=== PATIENT | male | born 1945 | race Caucasian/White ===

== ENCOUNTER 2020-03-10 13:29 | Emergency (ER) | payer MEDICARE, BC, SELFPAY ==
[2020-03-10 13:38] VITALS: BP 140/95; PULSE 89; RESP 18; TEMP 36.6; O2SAT 98; BMI 31.8
[2020-03-10 13:51] VITALS: PULSE 75; RESP 17; O2SAT 96
[2020-03-10] MEDS: tranexamic acid 1,000 mg/10mL SDV 1000 MG IRRIGATION (14:10)
[2020-03-10] MEDS: gelatin 12-7 mm Sponge 1 EACH TOPICAL (14:10)
--- NOTE | 2020-03-10 14:13 | ED_ITS ---
HPI - General Adult General: Chief complaint: Dental/Oral Stated complaint: dental bleeding Time Seen by Provider: 03/10/20 13:49 History of Present Illness: HPI narrative: Patient had a tooth extraction done right upper back molar 24 hours ago is on Pradaxa and the tooth cavity continues to bleed he did pull his packing out MD complaint: Bleeding Onset (ago): day(s) Location: mouth Relieving factors: none Associated symptoms: Reports no associated symptoms Review of Systems Const: Denies: fever or chills ENMT: Reports: other (Gum is bleeding from right rear molar upper tooth extraction done 24 hours ago patient is on Pradaxa) Psych: Denies: anxiety or depression PFSH ED PFSH: Medical History (Updated 12/08/19 @ 10:12 by Roxanne Serrato APN) Chronic back pain Social History (Updated 12/08/19 @ 07:17 by Vanessa Wright LPN) Smoking and tobacco status: never smoked Marital status: Physical Exam Const: COMMON NORMALS: oriented x3 HENMT: TEETH & GINGIVA: Yes other (Right right upper gum rear area where molar was extracted is bleeding does have a couple small clots) Neuro: COMMON NORMALS: oriented x3 Psych: COMMON NORMALS: mental status grossly normal Course Vital Signs: Vital signs: Vital Signs Temperature 97.9 F 03/10/20 13:38 Pulse Rate 75 03/10/20 13:51 Respiratory Rate 17 03/10/20 13:51 Blood Pressure 140/95 03/10/20 13:38 Pulse Oximetry 96 03/10/20 13:51 MDM - General Adult MDM Narrative: Medical decision making narrative: I packed the oral cavity with transexaminec acid and Gelfoam. Patient tolerated procedure well Discharge Plan Discharge Prescriptions: No Action carvedilol 12.5 mg tablet 12.5 mg PO BID RF: 0 allopurinol 300 mg tablet 300 mg PO QDAY RF: 0 hydrochlorothiazide 25 mg tablet 25 mg PO QAM RF: 0 metformin 500 mg tablet 500 mg PO BID RF: 0 rosuvastatin [Crestor] 40 mg tablet 40 mg PO QDAY RF: 0 Pradaxa 150 mg capsule 150 mg PO BID RF: 0 Coding Level of Care Code ED Feed And Farm Management Adviser for Deo Hanson
[2020-03-10 14:47] VITALS: BP 117/80; PULSE 61; RESP 15; O2SAT 97
== END 2020-03-10 14:38 | disposition home or self-care (01) ==
PROVIDERS: Emergency Provider Nurse Practitioner Family; PCP Nurse Practitioner Family
DX: Z98.818 Other dental procedure status (principal); R58 Hemorrhage, not elsewhere classified
CPT/HCPCS: 12345; 99282

== ENCOUNTER 2020-06-25 17:28 | Emergency (ER) | payer MEDICARE, BC, SELFPAY ==
[2020-06-25 17:43] VITALS: BP 131/81; PULSE 89; RESP 16; TEMP 36.4; O2SAT 96; BMI 31.8
--- NOTE | 2020-06-25 18:11 | W.ED.DENTAL ---
HPI - Dental/Oral General: Chief complaint: Dental/Oral Stated complaint: DENTAL BLEEDING Time Seen by Provider: 06/25/20 18:10 History of Present Illness: HPI Narrative: Patient is a 74-year-old male who comes to the ED with dental bleeding. Patient pulled tooth this morning and he is not been able to get bleeding to stop. He is currently on Pradaxa. Patient denies any other complaints. Associated symptoms: Denies fever(s) or odynophagia Review of Systems Const: Denies: fever(s), chills or fatigue Eyes: Denies: change in vision or eye discomfort ENMT: Reports: bleeding gums (Continued bleeding after pulling tooth.); Denies: throat pain, odynophagia, nasal discharge or nasal congestion Card: Denies: chest pain, palpitations, edema, swelling of feet/ankles, dyspnea on exertion or orthopnea Resp: Denies: dyspnea, productive cough or non-productive cough GI: Denies: abdominal pain, nausea, vomiting, diarrhea, constipation or hematochezia : Denies: flank pain, difficulty urinating, dysuria or hematuria Musc: Denies: neck pain, back pain or extremity swelling Skin/Breast: Denies: rash or new lesions Neuro: Denies: headache(s), numbness in extremities or weakness in extremities PFSH ED PFSH: Medical History Chronic back pain Social History Smoking and tobacco status: never smoked Alcohol intake: never Substance/Drug Use: never Marital status: Physical Exam Narrative: EXAM NARRATIVE: Patient is a 74-year-old male in no acute distress or pain in the room. He is sitting comfortably in the chair upon examination. Const: COMMON NORMALS: no acute distress, patient oriented x3 and alert GENERAL APPEARANCE: cooperative and comfortable HENMT: COMMON NORMALS: normocephalic HEAD & SCALP: normocephalic MOUTH: Normal oral and palatal mucosa present TEETH & GINGIVA: Yes other (Area where tooth was pulled was upper maxillary right side of jaw approximately tooth #2 or 3. Minimal active bleeding seen.) THROAT: posterior oropharynx normal and uvula midline Neck/C-Spine: COMMON NORMALS: supple GENERAL: Yes normal visual inspection Resp: COMMON NORMALS: normal respiratory effort, No retractions, No use of accessory muscles and clear to auscultation bilaterally AUSCULTATION: clear to auscultation bilaterally Cardio: COMMON NORMALS: regular rate, regular rhythm, S1 normal heart sound present, S2 normal heart sound present, No gallops present (Cardio), No clicks present (Cardio), No murmurs present (Cardio) and Peripheral pulses 2+ throughout RATE: regular rate RHYTHM: regular rhythm HEART SOUNDS: S1 normal heart sound present and S2 normal heart sound present PERIPHERAL PULSES: Peripheral pulses 2+ throughout GI: COMMON NORMALS: Normal to inspection, nondistended, normoactive bowel sounds present, Soft to palpation, non-tender and no masses PALPATION: Yes Soft to palpation : COMMON NORMALS: Yes no CVA tenderness BLADDER/KIDNEY EXAM: Yes no CVA tenderness Back/Pelvis: COMMON NORMALS: no CVA tenderness Extremity: COMMON NORMALS: normal to inspection Neuro: COMMON NORMALS: patient oriented x3 and moves all extremities SENSORIUM/ORIENTATION: Yes alert Skin: COMMON NORMALS: no rashes or lesions noted GENERAL SKIN EXAM: no rashes or lesions noted and dry skin Course Vital Signs: Vital signs: Vital Signs Temperature 97.5 F L 06/25/20 17:43 Pulse Rate 89 06/25/20 17:43 Respiratory Rate 16 06/25/20 17:43 Blood Pressure 131/81 06/25/20 17:43 Pulse Oximetry 96 06/25/20 17:43 MDM - Dental/Oral MDM Narrative: Medical decision making narrative: Patient is a 74-year-old male comes to the ED with oral bleeding after pulling a tooth this morning. Patient is on Pradaxa. Upon exam there is some minimal active bleeding. Patient was given transexaminec acid and Gelfoam to control bleeding. Patient discharged and told to follow-up with PCP in 3 to 5 days for reevaluation. Patient understood and agreed with plan. Discharge Plan Discharge Patient Disposition: Home Clinical Impression: Oral bleeding Condition: Stable Prescriptions: No Action carvedilol 12.5 mg tablet 12.5 mg PO BID RF: 0 allopurinol 300 mg tablet 300 mg PO QDAY RF: 0 hydrochlorothiazide 25 mg tablet 25 mg PO QAM RF: 0 metformin 500 mg tablet 500 mg PO BID RF: 0 rosuvastatin [Crestor] 40 mg tablet 40 mg PO QDAY RF: 0 Pradaxa 150 mg capsule 150 mg PO BID RF: 0 amoxicillin 500 mg capsule See Rx Instructions .ROUTE .COMPLEX RF: 0 benazepril 20 mg tablet 20 mg PO DAILY RF: 0 Discharge Orders: Discharge Order (Routine); Ordered 06/25/20 Ordered By: Mauro Briceno Referrals: Roxanne Serrato APN [Primary Care Provider] - Discharge Diet: Regular Discharge Activity: Resume usual activity Activity Restrictions/Additional Instructions: Follow-up with medical provider as directed in 3-5 days. Continue taking home medications as prescribed. Return to the ER or your medical provider if condition worsens. Please read and understand discharge instructions. If any questions, please ask. Coding Level of Care Code ED Elevator Operator Service for Deo Fwvalentine Exam Comprehensive
[2020-06-25] MEDS: tranexamic acid 1,000 mg/10mL SDV 1000 MG IRRIGATION (18:41)
[2020-06-25] MEDS: gelatin 12-7 mm Sponge 1 EACH TOPICAL (18:42)
[2020-06-25 18:47] VITALS: BP 117/79; PULSE 64; RESP 18; O2SAT 96
== END 2020-06-25 18:53 | disposition home or self-care (01) ==
PROVIDERS: Emergency Provider Physician Assistant; PCP Nurse Practitioner Family
DX: K13.79 Other lesions of oral mucosa (principal); Z79.84 Long term (current) use of oral hypoglycemic drugs
CPT/HCPCS: 12345; 99281; 99282

== ENCOUNTER → 2021-02-13 08:37 | Outpatient (BNVA) | payer MEDICARE, BC, SELFPAY | PROVIDERS: PCP Nurse Practitioner Family; Referring Provider Nurse Practitioner Family; Visit Provider Orthopaedic Surgery | DX: M17.12 Unilateral primary osteoarthritis, left knee (principal); Z96.651 Presence of right artificial knee joint | CPT/HCPCS: 73560; 73565 ==

== ENCOUNTER → 2021-02-26 08:13 | Day surgery (SDC) | payer MEDICARE, BC, SELFPAY | PROVIDERS: PCP Nurse Practitioner Family; Visit Provider Orthopaedic Surgery | DX: Z01.818 Encounter for other preprocedural examination (principal); M17.12 Unilateral primary osteoarthritis, left knee | CPT/HCPCS: 93005 ==

== ENCOUNTER 2021-03-11 14:29 | Observation (INO) | payer MEDICARE, BC, SELFPAY ==
[2021-02-26 10:18] VITALS: BMI 31.5
--- NOTE | 2021-02-26 10:27 | ECG_ITS ---
[facility] ED Test Date: 2021-02-26 Pat Name: Rommel Bhatia Department: Room: Gender: Male Shingle Grader: : 1945 Requested By: Eitan Mora Order Number: [id number] Radha MD: Luci Courtney M.D. Measurements Intervals [place] Rate: 60 P: RI: QRS: -70 QRSD: 153 T: 12 QT: 450 QTc: 450 Interpretive Statements ELECTRONIC VENTRICULAR PACEMAKER ABNORMAL RHYTHM ECG Compared to ECG 01/27/2017 18:38:35 No significant changes Electronically Signed On 02-28-2021 21:18:37 CDT by Luci Courtney M.D. [id number]
--- NOTE | 2021-02-26 11:07 | P.ANESASSM_ITS ---
Pre-Anesthetic Assessment Pre-Anesthetic Assessment: Height/Weight: Height 1.78 m Weight 99.79 kg Preop Diagnosis: knee pain Proposed Procedure: Operation Date: 03/11/21 12:40 Proposed Procedures p Total Knee Arthroplasty 32744 M17.12(Left) - Eitan Mora MD Familial anesthetic complications: None Social: Social History: No alcohol and No tobacco Exam: Pre-Anes Outpt Exam: alert, oriented x 3, clear to auscultation bilaterally and regular rate & rhythm Airway: Cervical ROM: WNL MP: 3 Dentition: Other (implant) Pulmonary: Pulmonary: None reported CV/HEM: CV/HEM: Afib (pacemaker) and HTN Comments: 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 patient and family are stating that Dr. Mora was going to contract their art specialist to make sure he was ok to proceed and there were no further recommendations. Metabolic: Metabolic: DM, Hyperlipidemia and Morbid obesity Musc/skel: Musc/skel: OA/DJD Comments: b/l shoulder pain Anesthetic Plan: ASA status: 3 Anesthesia: Regional (specify below) Other: spinal + adductor (make sure off apixaban) Risk of > 500 ml blood loss (7ml/kg in children): No PFSH Anesthesia PFSH: Medical History Chronic back pain Social History (Updated 02/26/21 @ 10:12 by Darling Mcdonald) Smoking and tobacco status: former smoker Alcohol intake: never Marital status: Data Anesthesia CBC & Chem 7: 02/26/21 10:55 Cardiac Studies: No Data to Display
[2021-02-26 11:08] LABS: Basophils % 0.4 %; Eosinophils # 0.2 10^3/uL (0.0-0.8); Eosinophils % 2.7 %; Hematocrit 43.4 % (42.0-52.0); Hemoglobin 13.7 g/dL (11.7-16.6); Lymphocytes # 1.1 10^3/uL (0.8-4.8); Lymphocytes % 16.9 %; Mean Corpuscular HGB Conc 31.6 g/dL (30.0-36.0); Mean Corpuscular Hemoglobin 28.9 pg (28.0-34.0); Mean Corpuscular Volume 91.6 fL (80-94); Mean Platelet Volume 10.6 fL (7.4-10.4); Monocytes # 0.6 10^3/uL (0.2-0.9); Neutrophils # 4.77 10^3/uL (1.8-7.7); Neutrophils % 70.7 %; Nucleated Red Blood Cells % 0 %; Platelet Count 152 10^3/cmm (130-400); Red Blood Count 4.74 10^6/uL (4.1-5.3); Red Cell Distribution Width 14.6 % (12.1-15.1); White Blood Count 6.8 10^3/uL (4.0-10.0)
[2021-03-11] VITALS (16 sets, daily range): BP systolic 113–154; BP diastolic 54–99; PULSE 60–81; RESP 14–20; TEMP 36.3–36.7; O2SAT 93–97
[2021-03-11] MEDS: sodium chloride 0.9% 1,000 ML 30 ML IV (10:41)
[2021-03-11 10:45] LABS: Glucose Point of Care 120 mg/dL (70-110)
[2021-03-11] MEDS: acetaminophen 500 mg Tablet 1000 MG PO ×2 (10:47→18:46)
[2021-03-11] MEDS: CELEcoxib 200 mg Capsule 400 MG PO (10:47)
[2021-03-11] MEDS: gabapentin 300 mg Capsule PO ×2 (10:47→18:46)
[2021-03-11] MEDS: oxyCODONE 20 mg ER (12 HR) Tablet PO (10:49)
--- NOTE | 2021-03-11 11:47 | W.PM.OPSFHP ---
Same Day Surgery H&P Indication for Procedure/HPI DATE OF PROCEDURE: March 11, 2021 CHIEF COMPLAINT/INDICATIONFOR SURGICAL PROCEDURE: Osteoarthritis left knee here for elective left total knee arthroplasty. PREOP DIAGNOSIS: Osteoarthritis Left knee PLANNED PROCEDRUE: Operation Date: 03/11/21 12:05 Proposed Procedures p Total Knee Arthroplasty 13391 M17.12(Left) - Eitan Mora MD Medications/Allergies* Home Medications Medication Instructions Recorded Confirmed Type allopurinol 300 mg tablet 300 mg PO QDAY 12/08/19 03/11/21 History carvedilol 12.5 mg tablet 12.5 mg PO BID 12/08/19 03/11/21 History hydrochlorothiazide 25 mg tablet 25 mg PO QAM 12/08/19 03/11/21 History metformin 500 mg tablet 500 mg PO BID 12/08/19 03/11/21 History benazepril 20 mg PO DAILY 03/10/20 03/11/21 History apixaban 5 mg tablet 5 mg PO BID 02/13/21 03/11/21 History rosuvastatin 20 mg PO DAILY 02/26/21 03/11/21 History tamsulosin 0.4 mg PO BEDTIME 02/26/21 03/11/21 History tamsulosin [Flomax] 0.4 mg PO DAILY 03/11/21 03/11/21 History Allergies/Adverse Reactions Allergy/AdvReac Type Severity Reaction Status Date / Time niacin Allergy Unknown Verified 03/11/21 10:40 tetanus toxoid, adsorbed Allergy Unknown Verified 03/11/21 10:40 codeine AdvReac Unknown Verified 03/11/21 10:50 morphine AdvReac Unknown Verified 03/11/21 10:50 Current Medications: Generic Name Dose Route Start Last Admin Trade Name Freq PRN Reason Stop Dose Admin Sodium Chloride 1,000 mls @ 30 mls/hr 03/11/21 10:15 03/11/21 10:41 Sodium Chloride 0.9% IV 03/12/21 10:14 30 mls/hr .Q24H MEG Administration Pertinent History/Comorbid Conditions* Medical History (Updated 02/13/21 @ 09:12 by Eitan Mora MD) Chronic back pain Social History Smoking and tobacco status: never smoked Alcohol intake: never Marital status: Pertinent Exam Findings alert, oriented x 3, clear to auscultation bilaterally, regular rate & rhythm and operative site marked Recommendations Surgery/Procedure today Coding Level of Care Code Acute Polysomnographic Tech for Deo Hanson
--- NOTE | 2021-03-11 12:27 | P.ANESUD_ITS ---
Pre-Anesthetic Update Pre-Anesthetic Assessment: Date of Surgery/Procedure: 03/11/21 Preop Roxann gnosis: Osteoarthritis Left knee Proposed Procedure: Operation Date: 03/11/21 12:05 Proposed Procedures p Total Knee Arthroplasty 21496 M17.12(Left) - Eitan Mora MD Any changes to Pre-Anesthetic Assessment?: No Last Intake: Intake Last Liquid Date 03/10/21 Last Liquid Time 21:00 Last Solid Date 03/10/21 Last Solid Time 21:00 Labs Last 48hrs: Laboratory Results - last 48 hr 03/11/21 10:43 POC Glucose 120 H Vitals: Temperature 97.6 F 03/11/21 10:55 Temperature Source Temporal Artery S can 03/11/21 10:55 Pulse Rate 74 03/11/21 10:55 Respiratory Rate 18 03/11/21 10:55 Blood Pressure 154/95 03/11/21 10:55 Blood Pressure Demetrice n 114 03/11/21 10:55 Pulse Oximetry 97 03/11/21 10:55 Oxygen Delivery Me thod 03/11/21 10:57 Exam: Pre-Anes Outpt Exam: alert, oriented x 3, clear to auscultation bilaterally and regular rate & rhythm Other Pertinent Information: Other Pertinent Information: SAB and adductor. Cardiac Studies: No Data to Display
--- NOTE | 2021-03-11 12:50 | ANES.PROC ---
Anesthesia Procedures Procedure/Date: 03/11/21 Nerve Block ^: Nerve Block 1: Main Anesthesia: general anesthesia Time Out Performed: Yes Consent: requested by attending/covering physician, from patient, risks and benefits reviewed and patient agrees to proceed Nerve block location: adductor canal (left) Anesthesia monitors applied: pulse oximetry, EKG, BP cuff and oxygen Nerve block position: supine Anesthetic Used: ropivicaine 0.5% Amount of anesthesia used (mL): 20 Ultrasound used to: recognize landmarks Nerve Stimulator Used?: No Interscalene/Femoral BLK: 4 stimuplex 21 g needle used for position and inplane approach Injection: neg aspiration of heme Patient Tolerated Procedure: well Complications: none
[2021-03-11] MEDS: ketorolac 30 mg/mL INJ XX (13:10)
[2021-03-11] MEDS: EPINEPHrine 1 mg/mL INJ XX (13:10)
[2021-03-11] MEDS: tranexamic acid 1,000 mg/10mL SDV 1000 MG IRRIGATION (13:11)
--- NOTE | 2021-03-11 14:35 | P.OP_ITS ---
Operative Report Date of procedure: March 11, 2021 Pre-op Diagnosis: Osteoarthritis Left knee Post-op diagnosis: same Post-op Findings: Same Procedure Done: Left total knee arthroplasty Implants: er total knee arthroplasty components were used includin) Size 5 triathalon c cemented cruciate substituting femoral component 2) Size 6 universal tibial baseplate 3) 32 mm /10 mm thickness cement asymetric patella 4) Size 6/9 mm thickness posterior stabilized tibial bearing insert Pathology: none sent Surgeon: Eitan Mora Anesthesia: Nerve Block (Spinal, adductor canal) Estimated blood loss (mL): 250 Complications: None Findings: Tricompartmental degenerative disease with bone loss and in the lateral compartment with resulting passively correctable valgus deformity Condition: stable Disposition: PACU Procedure: The patient was taken to the operating room. Patient was given 1 g of tranexamic acid . The above anesthesia provided by the anesthesia service. A timeout was performed. The patient was prepped and draped in the usual fashion with the lower extremity exposed. A anterior incision was made, midline, from a point proximal to the patella to the distal tibial tubercle. The knee was entered through a medial parapatellar approach. The patella could be displaced laterally and the knee flexed. The patellar fat pad was resected to provide better visibility. Retractors were placed medially and laterally adjacent to the tibial plateau. The femoral canal was drilled in line with the longitudinal axis of the femur. Intramedullary femoral guide for used to make a distal femoral cut in 5 degrees of valgus, resecting 8 mm from the more prominent condyle. Next the extra medullary tibial guide was placed in alignment with the longitudinal axis of the tibia. The cutting guides were set to remove just over 9 mm from the high ti bial plateau. The proximal tibia was then cut. The femoral measuring guide was then placed over the distal femur. Rotation was verified checking the relationship of the guide to the condyle and the trochlear groove. The femur was measured and cut for the desired femoral component. The desired tibial baseplate was then chosen. A trial reduction with the femur tibial baseplate and polyethylene was done, assuring that the knee was stable throughout full motion. Ligament balancing of nothing more than a release of the deep medial collateral ligament.The tibia was prepared for the tibial baseplate. Patellar thickness was then measured. The patella was cut removing articular cartilage and prepared for appropriate size patellar button. All surfaces were cleaned with pulsatile lavage. The femur tibia and patella were then cemented into place. The posterior capsule and collateral ligaments were then injected with a solution of 100 mL of 0.2% ropivacaine, 1 mL of a 1:1000 epinephrine solution, and 30 mg of Toradol. Final polyethylene component was then snapped into place into the tibia. 2 grams of tranexamic acid were applied to the wound. The tourniquet was deflated. The tranxanemic acid was left contact with the knee for 5 minutes before the knee was irrigated with saline. The extensor retinaculum was closed with a running 1 Stratafix.. The subcutaneous tissues were closed with 2-0 Vicryl and the skin was closed with a running 3-0 Stratafix. The wound was covered with a Dermabond Prinio dressing. It was covered with 4xrs and a compressive Tubigauae was applied. The patient was taken to recovery room in stable condition. Adrianna
--- NOTE | 2021-03-11 14:42 | XRR_ITS ---
PROCEDURE INFORMATION: Exam: XR Left Knee Exam date and time: 03/11/2021 2:50 PM Age: 75 years old Clinical indication: Device placement; Joint replacement hardware; Prior surgery; Surgery date: Post-operative (0-2 days); Additional info: Left total knee arthroplasty TECHNIQUE: Imaging protocol: XR Left knee. Views: 1 or 2 views. COMPARISON: CR XR knees AP WB w LT lmt ORTH 02/13/2021 8:44 AM FINDINGS: Bones/joints: Status post total knee arthroplasty with postoperative changes. No hardware loosening or fracture. Soft tissues: Normal. Vasculature: Vascular calcifications. XR/XR knee LT 1-2V 66051 IMPRESSION: Status post total knee arthroplasty with postoperative changes.
--- NOTE | 2021-03-11 14:59 | SUR.PHASEI ---
PT AWAKE ALERT SPINAL NOW AT T-12 LEVEL PT MOVES LT THIGH BUT NOT FEET , HOB AT 30 DEGREES BP STABLE, MONITOR PACED AT 91 VSS. LT KNEE DRESSING D/I FIRST ICE TO KNEE DISTAL FOOT PINK WARM WITH STRONG REGULAR PULSE NOTED AND MARKED.
--- NOTE | 2021-03-11 15:43 | ANE.PACU2 ---
Inpatient post-anesthesia follow up: Airway intact: Yes Vital signs: Temperature 97.8 F Pulse Rate 61 Respiratory Rate 17 Blood Pressure 145/80 Pulse Oximetry 97 Oxygen Delivery Me thod Room Air Oxygen Flow Rate Fraction of Inspir ed Oxygen Hydration adequate: Yes Nausea and vomiting: No Pain level: 2 Mental status: Baseline
[2021-03-11 16:56] LABS: Glucose Point of Care 120 mg/dL (70-110)
[2021-03-11] MEDS: ondansetron 2 mg/ML SDV 2 mL 4 MG IVP (17:01)
[2021-03-11] MEDS: carvedilol 12.5 mg Tablet PO (18:46)
[2021-03-11] MEDS: sennosides-docusate Tablet 2 TAB PO (18:46)
[2021-03-11] MEDS: sodium chloride 0.9% 1,000 ML 100 ML IV (18:50)
[2021-03-11 20:23] LABS: Glucose Point of Care 174 mg/dL (70-110)
[2021-03-11] MEDS: CELEcoxib 200 mg Capsule PO (20:38)
[2021-03-11] MEDS: tamsulosin 0.4 mg Capsule PO (20:38)
[2021-03-11] MEDS: oxyCODONE 5 mg IR Tab/Cap PO (20:43)
[2021-03-12] MEDS: acetaminophen 500 mg Tablet 1000 MG PO ×2 (02:08→09:02)
[2021-03-12 02:18] LABS: Hemoglobin 10.7 g/dL (11.7-16.6)
[2021-03-12 04:12] VITALS: BP 96/59; PULSE 61; RESP 18; TEMP 36.8; O2SAT 92
[2021-03-12] MEDS: sodium chloride 0.9% 1,000 ML 100 ML IV (04:20)
[2021-03-12] MEDS: hydroCHLOROthiazide 25 mg Tablet PO (06:37)
[2021-03-12 06:39] LABS: Glucose Point of Care 119 mg/dL (70-110)
[2021-03-12 07:48] VITALS: BP 110/66; PULSE 66; RESP 18; TEMP 36.8; O2SAT 98
[2021-03-12] MEDS: gabapentin 300 mg Capsule PO (09:02)
[2021-03-12] MEDS: sennosides-docusate Tablet 2 TAB PO (09:02)
[2021-03-12] MEDS: apixaban 5 mg Tablet PO (09:02)
[2021-03-12] MEDS: atorvastatin 40 mg Tablet 80 MG PO (09:02)
[2021-03-12] MEDS: carvedilol 12.5 mg Tablet PO (09:02)
[2021-03-12] MEDS: metformin 500 mg Tablet PO (09:03)
[2021-03-12] MEDS: CELEcoxib 200 mg Capsule PO (09:03)
[2021-03-12] MEDS: lisinopril 20 mg Tablet PO (09:03)
[2021-03-12] MEDS: allopurinol 300 mg Tablet PO (09:03)
[2021-03-12 09:50] VITALS: PULSE 60; RESP 18; O2SAT 98
[2021-03-12 09:51] VITALS: PULSE 61
--- NOTE | 2021-03-12 10:16 | PC.CHAP ---
Pastoral Care Encounter/Spiritual Assessment Type of Contact [] Declined production wood craftsman visit [] Patient/Family/Request visit [] Outpatient visit [] Follow-up visit [] Physician referral [] Code/Alert [x] Routine visit [] Staff referral [] Actively dying [] Patient sleeping [] Family support [] [] Out of room [] Palliative care [] [] Receiving care in room [] Pre-surgical visit [] Trauma [] Long length of stay [] ICU visit [] Other: Relational/Emotional Strength [] Patient feels connected with others/family/visitors/staff [] Distress [] Loneliness/isolation [] Abandonment Spirituality of Patient x[] Person of [place] [x] Attends Zoroastrianism of their [place] [] Believes in Prayer [] Reads Bible or Judaism materials [] There are Spiritual issues to be addressed Nanny Caregiver Interventions [x] Prayer [x] Active listening [x] Non-anxious presence [] Spiritual/emotional support [] Crisis/trauma care [] Spiritual counseling [] Bereavement support [] Provided bereavement packet [] Provided Bible/devotional materials [] Provided toy/stuffed animal, coloring book to patient or family member [] Provided Communion [] Anointing/Powers [] Salvation [] Completed spiritual assessment [] Other: Impact on Illness or Injury [] Angry [] Fearful [] Anxious [] Often cries [] Exhaustion [] Unable to work [] Unable to attend holiness [] Unable to walk/stand [] Unable to read [] Unable to drive [] Unable to eat/drink [] Unable to sleep [] Unable to be with family [] Patient intubated [] Other: Summary Time spent with patient 15 min
[2021-03-12 11:27] LABS: Glucose Point of Care 157 mg/dL (70-110)
--- NOTE | 2021-03-12 11:41 | PC.OT ---
OT SCREEN COMPLETED. PATIENT ONLY REQUIRES SBA FOR LB DRESSING. NO FURTHER SKILLED OT REQUIRED.
--- NOTE | 2021-03-12 13:15 | PM.DCS ---
Discharge Providers Date of Admission: 03/11/21 14:29 Date of Discharge: March 12, 2021 Attending Provider at Admission: Eitan Mora MD Attending Provider at Discharge: Eitan Mora MD Primary Care Provider: Rxoanne Serrato APN Diagnoses at Discharge Discharge Diagnosis (1) Status post left knee replacement: Status: Acute (2) Osteoarthritis of left knee: Status: Resolved Reason for Visit Reason for Visit: primary osteoarthrits left knee Hospital Course Hospital Course Admitted for elective left total knee [id number] male. Did well. On the first postoperative day he was independent with his walker. He was managed with his Elequis and foot pumps for DVT prophylaxis. He remained hemodynamically stable. By the first postoperative day he was not stable for discharge Physical Exam Narrative: EXAM NARRATIVE: On the day of discharge his knee incision was clean. They had no drainage. There is minimal swelling in the thigh and knee and the calf. No distal neurovascular deficits were noted Urinary Catheter Management^: Lomeli: Cath Placed During This Visit: yes Urinary Catheter Date of Insertion: 03/11/21 Urinary Catheter Time of Insertion: 11:35 Discharge Data Data Completed and Pending: Completed Studies During Hospitalization Category Date Time Status XR knee LT 1-2V 7 3560 Routine Exams 03/11/21 14:42 Completed Labs from last 24 hours 03/12/21 03/12/21 03/12/21 10:53 06:33 02:06 Hgb 10.7 L POC Glucose 157 H 119 H 03/11/21 03/11/21 20:17 16:52 Hgb POC Glucose 174 H 120 H Vitals: Last Vital Signs Temp 98.2 F 03/12/21 07:48 Pulse 61 03/12/21 09:51 Resp 18 03/12/21 09:50 BP 110/66 03/12/21 07:48 Pulse Ox 98 03/12/21 09:50 Discharge Plan Discharge Patient Disposition: Home Condition: Stable Prescriptions: New celecoxib 200 mg Capsule 200 mg PO Q12H 15 Days Qty: 30 RF: 0 acetaminophen 500 mg Tablet 1,000 mg PO Q8H 14 Days Qty: 84 RF: 0 gabapentin 300 mg Capsule 300 mg PO BID 7 Days Qty: 14 RF: 0 oxycodone 5 mg Tablet 5 mg PO Q4H PRN (Reason: Moderate Pain) 7 Days Qty: 40 RF: 0 Continued carvedilol 12.5 mg tablet 12.5 mg PO BID RF: 0 allopurinol 300 mg tablet 300 mg PO QDAY RF: 0 hydrochlorothiazide 25 mg tablet 25 mg PO QAM RF: 0 metformin 500 mg tablet 500 mg PO BID RF: 0 Eliquis 5 mg tablet 5 mg PO BID RF: 0 benazepril 20 mg tablet 20 mg PO DAILY RF: 0 tamsulosin 0.4 mg Capsule 0.4 mg PO BEDTIME RF: 0 rosuvastatin 20 mg Tablet 20 mg PO DAILY RF: 0 Flomax 0.4 mg Capsule 0.4 mg PO DAILY RF: 0 Discharge Orders: Discharge Order (Routine); Ordered 03/12/21 Ordered By: Eitan Mora Other Ambulatory Orders: DME: Walker (Order) Location: None Selected Ordered By: Eitan Mora Referrals: Eitan Mora MD [Physician] - 03/26/21 2:45 pm Discharge Diet: Advance as tolerated Discharge Activity: Limit activity as instructed Patient Instructions: Gabapentin (By mouth), Oxycodone, Rapid Release (By mouth), Celecoxib (By mouth), Total Knee Replacement (DC), Opioid Safety Activity Restrictions/Additional Instructions: Okay to shower Keep Tubigauze sleeve in place for swelling. Okay to remove for hygiene. Apply FirstIce up to 20 min/hr for pain and swelling Take Celebrex twice a day for the next 15 days for pain , discontinue other anti-inflammatories Take Neurontin twice a day for 7 days. Take Tylenol 500mg (2 tabs) as needed 3 times a day for mild pain take oxycodone for breakthrough pain. Exercises per physical therapy. May weight-bear as tolerated on total knee arthroplasty Discharge Attestations Time Spent in Discharge Care*: other Quality Metrics Clinical Quality Measures During this hospital stay, did patient experience: None Coding Level of Care Code Acute Chg FW DC note Diagnoses Status post left knee replacement Z96.652 Osteoarthritis of left knee M17.12
[2021-03-12 14:30] VITALS: BP 110/66; PULSE 61; RESP 18; TEMP 36.8; O2SAT 98
== END 2021-03-12 14:33 | disposition home or self-care (01) ==
LOC: MEDSURG 14:30
PROVIDERS: Admitting Provider Orthopaedic Surgery; PCP Nurse Practitioner Family; Visit Provider Orthopaedic Surgery
PROC: (CPT 27447; principal; 2021-03-11 11:45)
DX: M17.12 Unilateral primary osteoarthritis, left knee (principal); I48.91 Unspecified atrial fibrillation; Z95.0 Presence of cardiac pacemaker; I10 Essential (primary) hypertension; E11.9 Type 2 diabetes mellitus without complications; E78.5 Hyperlipidemia, unspecified; E66.01 Morbid (severe) obesity due to excess calories; Z68.31 Body mass index [BMI] 31.0-31.9, adult; Z87.891 Personal history of nicotine dependence
CPT/HCPCS: 27447; 36415; 36416; 51702; 64447; 73560; 76942; 82962; 85018; 85025; 96372; 97110; 97116; 97161; 97530; C1776; G0378; J0171; J0690; J1580; J1815; J1885; J2370; J2405; J2704; J2795; J7030

== ENCOUNTER 2021-03-14 14:53 | Inpatient (IN) | payer MEDICARE, BC, SELFPAY ==
[2021-03-14] VITALS (8 sets, daily range): BP systolic 92–108; BP diastolic 48–63; PULSE 60–78; RESP 17–21; TEMP 36.6–36.8; O2SAT 91–96; BMI 31.5
--- NOTE | 2021-03-14 15:16 | XR_ITS ---
WS: [id number] Portable AP upright chest, 03/14/2021 Clinical Data: dyspnea/cough Comparison: Portable chest, 01/27/2017. Findings: The heart is enlarged. No nodules, masses or effusions are seen. The pulmonary vascularity is not increased. No nodules, masses or effusions are seen. The aortic arch and descending aorta are tortuous. The multilead pacemaker is in good position with the generator overlying the left upper [address]. 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 XR/XR chest 1V portable [id number] Impression: Cardiomegaly and atherosclerosis.
--- NOTE | 2021-03-14 15:16 | XR_ITS ---
WS: [id number] Left knee, 3 views, 03/14/2021 Clinical Data: pain Comparison: Left knee, 03/11/2021. Findings: The left knee arthroplasty shows no change. There is no loosening. The components remain intact. Ther e are no fractures or dislocations. Soft tissues are unremarkable. XR/XR knee LT 3V* [id number] Impression: Intact left knee arthroplasty.
--- NOTE | 2021-03-14 15:16 | ECG_ITS ---
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 Measurements Intervals [place] Rate: 60 P: [place]: QRS: 248 QRSD: 173 T: 49 QT: 485 QTc: 485 Interpretive Statements ELECTRONIC VENTRICULAR PACEMAKER ABNORMAL RHYTHM ECG Compared to ECG 02/26/2021 11:04:21 No significant changes Electronically Signed On 03-14-2021 21:48:41 CDT by Lanie Beavers M.D. [email or web address]
--- NOTE | 2021-03-14 15:22 | W.ED.GENADLT ---
HPI - General Adult General: Chief complaint: General Medical Stated complaint: KNEE PAIN Time Seen by Provider: 03/14/21 15:02 History of Present Illness: HPI narrative: 75-year-old male presents emergency room with complaint of generally not feeling well feeling weak. Earlier this week he had a left knee arthroplasty he has had some problems with little bleeding from the wound since that he had some the larry come loose he is on Eliquis because of atrial fibrillation which was restarted after surgery. Is not having any chest pain or shortness of breath. Onset (ago): day(s) Severity: moderate Relieving factors: none Exacerbating factors: none Associated symptoms: Deny chest pain, confusion, cough, diaphoresis, decreased appetite, dyspnea, fevers/chills, headache(s), malaise, nausea, rash, palpitations, seizures, short of breath, syncope, vomiting or weakness Treatments prior to arrival: none Review of Systems Const: Denies: malaise or diaphoresis ENMT: Denies: throat pain, ear or mastoid pain, nasal discharge or nasal congestion Card: Denies: chest pain, palpitations or syncope Resp: Denies: dyspnea, productive cough or non-productive cough GI: Denies: nausea or vomiting : Denies: flank pain, dysuria, urinary frequency or urinary urgency Skin/Breast: Denies: rash Neuro: Denies: headache(s) or confusion PFS ED PFSH: Medical History Atrial fibrillation Chronic back pain Chronic neck and back pain Diabetes History of back pain History of hematuria Hyperlipidemia Hypertension Pacemaker Dr. Austin Gonzales [phone] Surgical History History of right knee joint replacement Dr. Morales in [place] History of thumb surgery Family History Other CAD (coronary artery disease) Diabetes Social History Smoking and tobacco status: never smoked Alcohol intake: never Marital status: Physical Exam Const: COMMON NORMALS: no acute distress GENERAL APPEARANCE: cooperative and comfortable ORIENTATION/CONSCIOUSNESS: Yes awake, Yes oriented to person, Yes oriented to place and Yes oriented to time HENMT: COMMON NORMALS: normocephalic, atraumatic and hearing grossly normal bilaterally HEAD & SCALP: normocephalic and atraumatic Neck/C-Spine: COMMON NORMALS: no JVD Resp: COMMON NORMALS: normal respiratory effort, No retractions, No use of accessory muscles and clear to auscultation bilaterally AUSCULTATION: clear to auscultation bilaterally Cardio: COMMON NORMALS: no JVD, regular rate, regular rhythm and No murmurs present (Cardio) RATE: regular rate RHYTHM: regular rhythm GI: COMMON NORMALS: Soft to palpation and No hepatosplenomegaly present AUSCULTATION: Yes normoactive bowel sounds PALPATION: Yes Soft to palpation, No Tenderness to palpation present (GI), No Guarding due to palpation present (GI) and Yes No hepatosplenomegaly present Extremity: COMMON NORMALS: normal to inspection, capillary refill normal, no clubbing, cyanosis or edema, no calf tenderness and no pedal edema Neuro: SENSORIUM/ORIENTATION: Yes oriented to person, Yes oriented to place and Yes oriented to time Skin: COMMON NORMALS: no rashes or lesions noted GENERAL SKIN EXAM: no rashes or lesions noted Course Vital Signs: Vital signs: Vital Signs Temperature 98.4 F 03/15/21 15:45 Pulse Rate 63 03/15/21 15:45 Respiratory Rate 18 03/15/21 15:45 Blood Pressure 111/71 03/15/21 15:45 Pulse Oximetry 97 03/15/21 15:45 MDM - General Adult MDM Narrative: Medical decision making narrative: Patient has mild acute kidney injury hypertension is poorly controlled he has some delirium as well. Discussed with Dr. Kang. He also is mildly anemic his rectal exam was negative for blood. Will admit to obvious medication adjustments fluids orders written Lab Data: Labs: Lab Results 03/14/21 03/14/21 03/14/21 Range/Units 15:40 15:40 15:40 WBC 9.6 (4.0-10.0) 10^3/ uL RBC 3.02 L (4.1-5.3) 10^6/u L Hgb 8.9 L (11.7-16.6) g/dL Hct 27.9 L (42.0-52.0) % MCV 92.4 (80-94) fL MCH 29.5 (28.0-34.0) pg MCHC 31.9 (30.0-36.0) g/dL RDW 15.3 H (12.1-15.1) % Plt Count 124 L (130-400) 10^3/c mm MPV 10.6 H (7.4-10.4) fL Neut % (Auto) 77.8 % Lymph % (Auto) 9.5 % [place] % (Auto) 10.9 % Eos % (Auto) 0.9 % Baso % (Auto) 0.3 % Neut # (Auto) 7.48 (1.8-7.7) 10^3/u L Lymph # (Auto) 0.9 (0.8-4.8) 10^3/u L [place] # (Auto) 1.1 H (0.2-0.9) 10^3/u L Eos # (Auto) 0.1 (0.0-0.8) 10^3/u L Baso # (Auto) 0.0 (0.0-0.1) 10^3/u L Nucleated RBC % (a uto) 0 % Nucleated RBCs # 0.0 /100WBC PT (12.1-14.9) SECO NDS INR (0.8-1.2) Sodium 135 L (136-145) mmol/L Potassium 3.7 (3.5-5.1) mmol/L Chloride 100 (98-107) mmol/L Carbon Dioxide 25 (22-29) mmol/L Anion Gap 13.7 (5-19) BUN 45 H (8-23) mg/dL Creatinine 1.7 H (0.7-1.2) mg/dL GFR Calculation Not Reportable Glucose 107 (65-115) mg/dL Calculated Osmolal ity 292 (285-295) mOsm/k g Calcium 7.7 L (8.5-10.5) mg/dL Iron 10 L (59-158) ug/dL TIBC 193 mcg/dl % Saturation 5.1 L (20-50) % Unsat Iron Binding 183 (112-347) ug/dL Total Bilirubin 0.6 (0.15-1.2) mg/dL AST 37 (0-40) U/L ALT 11 (0-41) U/L Alkaline Phosphata se 58 (40-130) IU/L NT-Pro-B Natriuret Pep (0-450) pg/mL Total Protein 5.4 L (6.6-8.7) g/dL Albumin 3.0 L (3.5-5.2) g/dL Globulin 2.4 (1.3-4.6) g/dL Vitamin B12 (232-1245) pg/mL Folate (4.5-32.2) ng/mL Procalcitonin 1.28 H (0-0.5) ng/mL TSH (0.27-4.20) uIU/ mL Urine Color (Yellow) Urine Appearance (CLEAR) Urine pH (5-7) Ur Specific Gravit y (1.005-1.030) Urine Protein (Negative) Urine Glucose (UA) (Normal) Urine Ketones (Negative) Urine Blood (Negative) Urine Nitrate (Negative) Urine Bilirubin (Negative) Urine Urobilinogen (Negative) mg/dL Ur Leukocyte Kyara ase (Negative) Urine RBC (0-2) /hpf Urine WBC (0-5) /hpf Ur Squamous Epith Cells (0-5) /hpf Amorphous Sediment Urine Bacteria (NONE) /hpf Fine Granular Cast s /lpf Ur Random Sodium mmol/L Ur Random Potassiu m mmol/L Ur Random Chloride mmol/L Urine Creatinine (39-259) mg/dL 03/14/21 03/14/21 03/14/21 Range/Units 15:40 15:40 15:40 WBC (4.0-10.0) 10^3/ uL RBC (4.1-5.3) 10^6/u L Hgb (11.7-16.6) g/dL Hct (42.0-52.0) % MCV (80-94) fL MCH (28.0-34.0) pg MCHC (30.0-36.0) g/dL RDW (12.1-15.1) % Plt Count (130-400) 10^3/c mm MPV (7.4-10.4) fL Neut % (Auto) % Lymph % (Auto) % [place] % (Auto) % Eos % (Auto) % Baso % (Auto) % Neut # (Auto) (1.8-7.7) 10^3/u L Lymph # (Auto) (0.8-4.8) 10^3/u L [place] # (Auto) (0.2-0.9) 10^3/u L Eos # (Auto) (0.0-0.8) 10^3/u L Baso # (Auto) (0.0-0.1) 10^3/u L Nucleated RBC % (a uto) % Nucleated RBCs # /100WBC PT 16.60 H (12.1-14.9) SECO NDS INR 1.30 H (0.8-1.2) Sodium (136-145) mmol/L Potassium (3.5-5.1) mmol/L Chloride (98-107) mmol/L Carbon Dioxide (22-29) mmol/L Anion Gap (5-19) BUN (8-23) mg/dL Creatinine (0.7-1.2) mg/dL GFR Calculation Glucose (65-115) mg/dL Calculated Osmolal ity (285-295) mOsm/k g Calcium (8.5-10.5) mg/dL Iron (59-158) ug/dL TIBC mcg/dl % Saturation (20-50) % Unsat Iron Binding (112-347) ug/dL Total Bilirubin (0.15-1.2) mg/dL AST (0-40) U/L ALT (0-41) U/L Alkaline Phosphata se (40-130) IU/L NT-Pro-B Natriuret Pep 1900 H (0-450) pg/mL Total Protein (6.6-8.7) g/dL Albumin (3.5-5.2) g/dL Globulin (1.3-4.6) g/dL Vitamin B12 170 L (232-1245) pg/mL Folate 7.2 (4.5-32.2) ng/mL Procalcitonin (0-0.5) ng/mL TSH 3.17 (0.27-4.20) uIU/ mL Urine Color (Yellow) Urine Appearance (CLEAR) Urine pH (5-7) Ur Specific Gravit y (1.005-1.030) Urine Protein (Negative) Urine Glucose (UA) (Normal) Urine Ketones (Negative) Urine Blood (Negative) Urine Nitrate (Negative) Urine Bilirubin (Negative) Urine Urobilinogen (Negative) mg/dL Ur Leukocyte Kyara ase (Negative) Urine RBC (0-2) /hpf Urine WBC (0-5) /hpf Ur Squamous Epith Cells (0-5) /hpf Amorphous Sediment Urine Bacteria (NONE) /hpf Fine Granular Cast s /lpf Ur Random Sodium mmol/L Ur Random Potassiu m mmol/L Ur Random Chloride mmol/L Urine Creatinine (39-259) mg/dL 03/14/21 03/14/21 03/14/21 Range/Units 16:26 16:26 16:26 WBC (4.0-10.0) 10^3/ uL RBC (4.1-5.3) 10^6/u L Hgb (11.7-16.6) g/dL Hct (42.0-52.0) % MCV (80-94) fL MCH (28.0-34.0) pg MCHC (30.0-36.0) g/dL RDW (12.1-15.1) % Plt Count (130-400) 10^3/c mm MPV (7.4-10.4) fL Neut % (Auto) % Lymph % (Auto) % [place] % (Auto) % Eos % (Auto) % Baso % (Auto) % Neut # (Auto) (1.8-7.7) 10^3/u L Lymph # (Auto) (0.8-4.8) 10^3/u L [place] # (Auto) (0.2-0.9) 10^3/u L Eos # (Auto) (0.0-0.8) 10^3/u L Baso # (Auto) (0.0-0.1) 10^3/u L Nucleated RBC % (a uto) % Nucleated RBCs # /100WBC PT (12.1-14.9) SECO NDS INR (0.8-1.2) Sodium (136-145) mmol/L Potassium (3.5-5.1) mmol/L Chloride (98-107) mmol/L Carbon Dioxide (22-29) mmol/L Anion Gap (5-19) BUN (8-23) mg/dL Creatinine (0.7-1.2) mg/dL GFR Calculation Glucose (65-115) mg/dL Calculated Osmolal ity (285-295) mOsm/k g Calcium (8.5-10.5) mg/dL Iron (59-158) ug/dL TIBC mcg/dl % Saturation (20-50) % Unsat Iron Binding (112-347) ug/dL Total Bilirubin (0.15-1.2) mg/dL AST (0-40) U/L ALT (0-41) U/L Alkaline Phosphata se (40-130) IU/L NT-Pro-B Natriuret Pep (0-450) pg/mL Total Protein (6.6-8.7) g/dL Albumin (3.5-5.2) g/dL Globulin (1.3-4.6) g/dL Vitamin B12 (232-1245) pg/mL Folate (4.5-32.2) ng/mL Procalcitonin (0-0.5) ng/mL TSH (0.27-4.20) uIU/ mL Urine Color Dark yellow (Yellow) Urine Appearance Sl hazy (CLEAR) Urine pH 5 (5-7) Ur Specific Gravit y 1.025 (1.005-1.030) Urine Protein Trace (Negative) Urine Glucose (UA) Norm (Normal) Urine Ketones 1+ H (Negative) Urine Blood 2+ H (Negative) Urine Nitrate Negative (Negative) Urine Bilirubin 1+ H (Negative) Urine Urobilinogen 1 H (Negative) mg/dL Ur Leukocyte Kyara ase Negative (Negative) Urine RBC Rare (0-2) /hpf Urine WBC 0-4 H (0-5) /hpf Ur Squamous Epith Cells None (0-5) /hpf Amorphous Sediment Not Reportable Urine Bacteria 2+ H (NONE) /hpf Fine Granular Cast s 5-10 H /lpf Ur Random Sodium 65 mmol/L Ur Random Potassiu m 51 mmol/L Ur Random Chloride 48 mmol/L Urine Creatinine 236 (39-259) mg/dL Discharge Plan Discharge Patient Disposition: Admitted As Inpatient Admit Provider: Rachel Kang Clinical Impression: Weakness, Anemia, XAVIER (acute kidney injury), Atrial fibrillation, Status post left knee replacement, Hypertension, Delirium Condition: Stable Coding Level of Care Code ED Fresh Work Inspector for g Fwd Exam Comprehensive
[2021-03-14 15:47] LABS: Basophils % 0.3 %; Eosinophils # 0.1 10^3/uL (0.0-0.8); Eosinophils % 0.9 %; Hematocrit 27.9 % (42.0-52.0); Hemoglobin 8.9 g/dL (11.7-16.6); Lymphocytes # 0.9 10^3/uL (0.8-4.8); Lymphocytes % 9.5 %; Mean Corpuscular HGB Conc 31.9 g/dL (30.0-36.0); Mean Corpuscular Hemoglobin 29.5 pg (28.0-34.0); Mean Corpuscular Volume 92.4 fL (80-94); Mean Platelet Volume 10.6 fL (7.4-10.4); Monocytes # 1.1 10^3/uL (0.2-0.9); Monocytes % 10.9 %; Neutrophils # 7.48 10^3/uL (1.8-7.7); Neutrophils % 77.8 %; Nucleated Red Blood Cells % 0 %; Platelet Count 124 10^3/cmm (130-400); Red Blood Count 3.02 10^6/uL (4.1-5.3); Red Cell Distribution Width 15.3 % (12.1-15.1); White Blood Count 9.6 10^3/uL (4.0-10.0)
--- NOTE | 2021-03-14 15:52 | PC.PHAR ---
pts states the pt takes care of his own medications but states lately she has been giving him his medications-pts states the pt had his am dose of the eliquis in 03/13/[address] told the pt to hold the eliquis for a couple days- pts states the pt has been taking gabapentin 300mg bid filled on 03/14/21 with 100mg cap bid rx bottle dated 04/24/2020 pts states they werent aware the pt was doing that till the other day-pts states the pt is only suppose to be taking 300mg bid
[2021-03-14 16:12] LABS: Alanine Aminotransferase 11 U/L (0-41); Alkaline Phosphatase 58 IU/L (40-130); Anion Gap 13.7 (5-19); Aspartate Amino Transferase 37 U/L (0-40); Blood Urea Nitrogen 45 mg/dL (8-23); Calcium 7.7 mg/dL (8.5-10.5); Carbon Dioxide 25 mmol/L (22-29); Chloride 100 mmol/L (98-107); Globulin 2.4 g/dL (1.3-4.6); Glucose 107 mg/dL (65-115); Osmolality Calculated 292 mOsm/kg (285-295); Potassium 3.7 mmol/L (3.5-5.1); Sodium 135 mmol/L (136-145); Total Bilirubin 0.6 mg/dL (0.15-1.2); Total Protein 5.4 g/dL (6.6-8.7)
[2021-03-14 16:45] LABS: Add Urine Microscopic? YES; Bilirubin Urine 1+ (Negative); Blood Urine 2+ (Negative); Glucose Urine UA Norm (Normal); Ketones Urine 1+ (Negative); Leukocyte Esterase Urine Negative (Negative); Nitrate Urine Negative (Negative); Protein Urine Trace (Negative); Specific Gravity, Urine 1.025 (1.005-1.030); Urine Appearance SL Hazy (CLEAR); Urine Color Dark Yellow (Yellow); Urobilinogen Urine 1 mg/dL (Negative); pH Urine 5 (5-7)
[2021-03-14 16:47] LABS: Bacteria Urine 2+ /hpf; RBC Urine RARE /hpf (0-2); WBC Urine 0-4 /hpf (0-5)
[2021-03-14 16:48] LABS: Add Urine Culture? Yes
[2021-03-14] MEDS: sodium chloride 0.9% 1,000 ML 999 ML IV (17:37)
--- NOTE | 2021-03-14 18:25 | CTR_ITS ---
PROCEDURE INFORMATION: Exam: CT Head Without Contrast Exam date and time: 03/14/2021 6:28 PM Age: 75 years old Clinical indication: Injury or trauma; Fall; Blunt trauma (contusions or hematomas); Weakness, extremity; Bilateral; Injury details: Knee surgery on Thursday; Additional info: Fall, weakness TECHNIQUE: Imaging protocol: Computed tomography of the head without contrast. Radiation optimization: All CT scans at this facility use at least one of these dose optimization techniques: automated exposure control; mA and/or kV adjustment per patient size (includes targeted exams where dose is matched to clinical indication); or iterative reconstruction. COMPARISON: CR XR knees AP WB w LT lmt ORTH 02/13/2021 8:44 AM RADIATION DOSE METRICS: Total DLP (mGy-cm): 1020.63 FINDINGS: Brain: No evidence of acute infarct. No mass or mass effect. No intra axial hemorrhage. No extra axial fluid collection or hemorrhage. Scattered white matter hypodensities likely from chronic microvascular ischemic disease. Global brain volume loss, likely age related. Cerebral ventricles: Symmetric and without enlargement. Bones/joints: No acute fracture. Paranasal sinuses: Visualized sinuses are well aerated. Mastoid air cells: Visualized mastoid air cells are well aerated. Soft tissues: No concerning abnormalities. CT/CT head wo con* [id number] IMPRESSION: No acute intracranial abnormality. Radiation Dose CTDIVOL = (mGy): DLP = 1020.63 (mGy-cm)
--- NOTE | 2021-03-14 18:29 | P.HP_ITS ---
Providers/Chief Complaint Primary Care Provider: Roxanne Serrato APN Chief Complaint: KNEE PAIN History of Present Illness Rommel Bhatia is a 75 year old male with past medical history of hypertension, type 2 diabetes mellitus, atrial fibrillation, pacemaker implantation, chronic anticoagulation with Eliquis, who was recently discharged on March 12 after left knee replacement comes back today to the ER for generalized weakness getting worse since yesterday. History taken by patient and his who is at bedside. As per the patient he left from the hospital on Thursday he was feeling very well but in the afternoon on Thursday while he was sitting at his barstool he felt dizzy and fell after which he hit his left knee which is a surgical knee and bled quite profusely from there. His fall was not preceded by any nausea, vomiting, chest pain, palpitations, weakness in any of his arms, headache. He states he felt as if his blood sugars were low. As per patient usually takes Metformin at home but prior to discharge he was on NovoLog. He received NovoLog on the day of morning of discharge but did not eat well. Though he did not check his blood sugars around the fall. Patient denies hitting his head. He states he was doing well until yesterday when he had gone to see Dr. Mora in his office as a follow-up. As per the patient on his way back from his office he started feeling really weak and since then weakness has continued to worsen. He denies any localized weakness, no numbness and states he just does not want to get of bed. As per the patient has been taking his medications regularly including his antihypertensives. They also state that at home at baseline he takes 100 gabapentin twice daily and he was discharged by Dr. Mora on gabapentin 300 mg twice daily and since discharge he has been taking both the prescriptions at same time. He denies any fever, nausea, vomiting, headache, cough, dysuria, diarrhea, constipation, headache, known sick contacts, recent travels, history of similar problems, abdominal pain. Today prior to coming to the ER and home health had reached his home his blood pressures were in the 70s systolic so he presented to the ER. His blood work in the ER showed a white count of 9.6, hemoglobin of 8.9 which was 10.7 2 days ago and 13.7 earlier in this month, platelet count of 124, sodium of 134, creatinine of 1.7, BUN of 45, UA negative for any signs of infection. Knee x-ray negative for any acute pathology and stable arthroplasty. Review of Systems General: Reports: 10 or more systems reviewed and unremarkable except in HPI and below Const: Denies: fever(s), chills, body aches, change in appetite, change in weight, malaise, night sweats, diaphoresis, change in sleep pattern, daytime sleepiness or snoring Eyes: Denies: change in vision, blurry vision, photophobia, eye discomfort or eye discharge ENMT: Denies: throat pain, enlarged tonsils, hoarseness, mouth pain, oral sores, dry mouth, tinnitus, nasal congestion or post nasal drip Card: Denies: chest pain, palpitations, irregular heart rhythm, edema, swelling of feet/ankles, lightheadedness, syncope, pre-syncope, dyspnea on exertion, orthopnea, leg pain with exertion or acrocyanosis Resp: Denies: dyspnea, productive cough, non-productive cough, wheezing, stridor, pain on inspiration, change in phlegm color, hemoptysis or chest congestion GI: Denies: abdominal pain, nausea, vomiting, hematemesis, coffee ground emesis, dysphagia, heartburn, diarrhea, constipation, bloating, GI cramping, change in bowel habits, pain on defecation, hematochezia or melena : Denies: flank pain, difficulty urinating, dysuria, urinary frequency, urinary urgency, urinary hesitancy, urinary dribbling, difficulty starting urination, change in urine stream, nocturia or hematuria Musc: Denies: neck pain, back pain, extremity pain, joint pain, joint swel ling, joint redness, joint stiffness or limited range of motion Neuro: Denies: headache(s), numbness in extremities, weakness in extremities, sensory changes, lack of coordination, difficulty walking, frequent falls, dizziness, vertigo, confusion, Slurred speech present, difficulty communicating thoughts or seizure-like activity Psych: Denies: anxiety, depression, mood swings, panic attacks, hopelessness or irritability Endo: Denies: polyuria, polydipsia, tired all the time, cold intolerance, excessive sweating, flushing or heat intolerance Vaughn/Lymph: Denies: easy bruising or easy bleeding All/Imm: Denies: tongue swelling, facial swelling or acute wheezing Medications/Allergies Home Medications Medication Instructions Recorded Confirmed Last Taken Type allopurinol 300 mg tablet 300 mg PO QAM 12/08/19 03/14/21 03/14/21 07:00 History carvedilol 12.5 mg tablet 12.5 mg PO BID 12/08/19 03/14/21 03/14/21 07:00 History hydrochlorothiazide 25 mg tablet 25 mg PO QAM 12/08/19 03/14/21 03/14/21 07:00 History metformin 500 mg tablet 500 mg PO BID 12/08/19 03/14/21 03/14/21 07:00 History benazepril 20 mg PO QAM 03/10/20 03/14/21 03/14/21 07:00 History apixaban 5 mg tablet 5 mg PO BID 02/13/21 03/14/21 03/13/21 07:00 History rosuvastatin 20 mg PO BEDTIME 02/26/21 03/14/21 03/13/21 History tamsulosin 0.4 mg PO BEDTIME 02/26/21 03/14/21 03/13/21 History celecoxib 200 mg PO Q12H 15 Days #30 cap 03/12/21 03/14/21 03/14/21 07:00 Rx gabapentin 300 mg PO BID 7 Days #14 cap 03/12/21 03/14/21 03/14/21 07:00 Rx oxycodone 5 mg PO Q4H PRN 7 Days #40 tab 03/12/21 03/14/21 Unknown Rx acetaminophen 1,000 mg PO Q8H PRN 03/14/21 03/14/21 03/13/21 History gabapentin 100 mg PO BID 03/14/21 03/14/21 03/14/21 07:00 History ibuprofen 400 - 800 mg PO PRN 03/14/21 03/14/21 Unknown History Allergies Allergy/AdvReac Type Severity Reaction Status Date / Time niacin Allergy Unknown Verified 03/14/21 15:06 tetanus toxoid, adsorbed Allergy Unknown Verified 03/14/21 15:06 codeine AdvReac Unknown Verified 03/14/21 15:06 morphine AdvReac Unknown Verified 03/14/21 15:06 PFSH Acute PFSH: Medical History Atrial fibrillation Chronic back pain Chronic neck and back pain Diabetes History of back pain History of hematuria Hyperlipidemia Hypertension Pacemaker Dr. Austin Gonzales [phone] Surgical History History of right knee joint replacement Dr. Morales in [place] History of thumb surgery Family History (Updated 03/14/21 @ 18:31 by Fermin Restrepo MD) Other CAD (coronary artery disease) Diabetes Social History Smoking and tobacco status: never smoked Alcohol intake: never Marital status: Vitals/I&O/Wt Last Vital Signs Temp 97.9 F 03/14/21 14:54 Pulse 60 03/14/21 17:44 Resp 17 03/14/21 17:44 BP 103/57 03/14/21 17:44 Pulse Ox 95 03/14/21 17:44 Weight last 48 hrs Weight 99.79 kg Physical Exam Narrative: EXAM NARRATIVE: General: Pleasant, no acute distress, AO x3, tired appearing HEENT: PERRLA, pupils bilaterally equal and reactive Chest: Normal vesicular breath sounds, no added sounds, equal good air entry bilaterally CVS: S1-S2 regular, soft pansystolic murmur at apex, no tachycardia, no gallops, no rubs Abdomen: Soft, nontender, no organomegaly, bowel sounds present Neuro: No focal deficits, no facial deformity, AO x3, power 5/5 in all limbs, pupils bilaterally equal reactive Extremities: Left knee surgical larry present with localized hematoma, no puru lent discharge mild serosanguineous discharge, right knee old surgical wound well-healed present Data : 03/14/21 15:40 03/14/21 15:40 A&P Assessment and plan (1) Weakness: Status: Acute (2) Anemia: Status: Acute (3) Fall: Status: Acute (4) Status post left knee replacement: Status: Acute (5) XAVIER (acute kidney injury): Status: Acute (6) Atrial fibrillation: Status: Acute (7) Pacemaker: Status: Acute (8) Hypertension: Status: Acute (9) Hyperlipidemia: Status: Acute (10) Diabetes: Status: Acute Additional A&P Information 75-year-old man with past medical history of hypertension, post pacemaker, atrial fibrillation with recent left knee replacement comes to the ER with generalized weakness getting worse since yesterday after having a fall 2 days ago with seemed mechanical versus hypoglycemic event. Generalized weakness: Could be multifactorial. Most likely a combination of blood loss anemia along with polypharmacy of antihypertensives and duplicate prescription of gabapentin at home. Patient is on Eliquis and had a fall cannot rule out bleed versus stroke so we will do CT head. Patient do not have any signs of infection at present, no white count, no fevers, benign knee examination so for now we will hold off on any antibiotics. Check procalcitonin, blood culture, TSH, folate, vitamin B12, urine lites, iron panel, INR, CT head without contrast, MRSA swab, CPK, urine culture. We will request pacemaker check while in-house to rule out any arrhythmias. Echocardiogram. We will request records from patient's outpatient clinical data management director. Hold off on sedating medications. Continue gabapentin 100 mg twice daily. Avoid oxycodone. Can use Tylenol for pain. Hypotension: Patient's blood pressure borderline for now most likely from multiple antihypertensives while patient has blood loss anemia. For now hold off on antihypertensives. He takes Benzapril and carvedilol at home. We will continue to monitor. Goal blood pressure less than 140/90 mmHg with mean more than 65. Atrial fibrillation: Rate controlled. Takes Eliquis at home. For now given the anemia will hold off on Eliquis. Will confirm with Dr. Mora prior to starting Eliquis. XAVIER: We do not have baseline creatinine. 1.7 for now. Renal ultrasound. Urine lites, urine creatinine. Gentle hydration with normal saline at 50 cc/h. Medical reconciliation done for nephrotoxic drugs. For now hold off on celecoxib and ibuprofen. Type 2 diabetes mellitus: Check HbA1c. For now hold off on oral hypoglycemics. S/p left knee replacement: Physical therapy while patient is admitted. CODE STATUS: Patient would want to be full code. He states he would not want prolonged mechanical ventilation. He would want his and children to make decision if he is not able to make his own decisions. Regular diet. Foot pumps for DVT prophylaxis. We will confirm with Dr. Mora prior to start ing Eliquis. Admit to CSU for telemetry. Patient's care was discussed in detail with both patient and at bedside. All the questions were answered. Attestations Medical Necessity Statement*: Requires admission for more than 2 midnights for generalized weakness most likely combination of anemia with polypharmacy in setting of recent left knee replacement. Time Spent in Patient Care: Greater than 35 minutes (>than 50% of time spent in counselling and/or direct pt care on unit) . Coding Level of Care Code Acute Mattress Inspector for [facility] Fwd Diagnoses Weakness R53.1 Anemia D64.9 Fall W19.XXXA Status post left knee replacement Z96.652 XAVIER (acute kidney injury) N17.9 Atrial fibrillation I48.91 Pacemaker Z95.0 Hypertension I10 Hyperlipidemia E78.5 Diabetes E11.9
[2021-03-14 18:56] LABS: Procalcitonin 1.28 ng/mL (0-0.5)
[2021-03-14 19:06] LABS: NT Pro B Type Natriuretic Pept 1900 pg/mL (0-450); Thyroid Stimulating Hormone 3.17 uIU/mL (0.27-4.20); Vitamin B12 170 pg/mL (232-1245)
[2021-03-14 19:07] LABS: Iron 10 ug/dL (59-158); Percent Saturation 5.1 % (20-50); Total Iron Binding Capacity 193 mcg/dl; Unsaturated Iron Binding 183 ug/dL (112-347)
[2021-03-14 19:08] LABS: Folate Level 7.2 ng/mL (4.5-32.2)
[2021-03-14 19:09] LABS: Potassium, Radom Urine 51 mmol/L; Urine Creatinine 236 mg/dL (39-259); Urine Random Chloride 48 mmol/L; Urine Random Sodium 65 mmol/L
[2021-03-14 20:06] LABS: Lactic Sepsis W/Reflex 1.2 mmol/L (0.5-2.2)
[2021-03-14] MEDS: tamsulosin 0.4 mg Capsule PO (21:31)
[2021-03-14] MEDS: famotidine 20 mg/2 mL INJ IVP (21:32)
[2021-03-14] MEDS: sodium chloride 0.9% 1,000 ML 50 ML IV (21:32)
--- NOTE | 2021-03-14 23:46 | PC.NURSE ---
Pacemaker check complete
[2021-03-15] VITALS (10 sets, daily range): BP systolic 93–121; BP diastolic 49–76; PULSE 58–85; RESP 16–20; TEMP 36.4–37.5; O2SAT 93–97; BMI 31.4
[2021-03-15 05:48] LABS: Basophils % 0.3 %; Eosinophils # 0.1 10^3/uL (0.0-0.8); Eosinophils % 0.9 %; Hematocrit 27.3 % (42.0-52.0); Hemoglobin 8.8 g/dL (11.7-16.6); Lymphocytes # 0.7 10^3/uL (0.8-4.8); Lymphocytes % 7.3 %; Mean Corpuscular HGB Conc 32.2 g/dL (30.0-36.0); Mean Corpuscular Hemoglobin 29.2 pg (28.0-34.0); Mean Corpuscular Volume 90.7 fL (80-94); Mean Platelet Volume 11.4 fL (7.4-10.4); Monocytes # 0.8 10^3/uL (0.2-0.9); Monocytes % 9.3 %; Neutrophils # 7.34 10^3/uL (1.8-7.7); Neutrophils % 81.9 %; Nucleated Red Blood Cells % 0 %; Platelet Count 148 10^3/cmm (130-400); Red Blood Count 3.01 10^6/uL (4.1-5.3); Red Cell Distribution Width 15.2 % (12.1-15.1)
[2021-03-15 06:02] LABS: INR 1.26 (0.8-1.2)
[2021-03-15 06:11] LABS: Phosphorus 2.1 mg/dL (2.5-4.5)
[2021-03-15 06:14] LABS: Alanine Aminotransferase 13 U/L (0-41); Alkaline Phosphatase 72 IU/L (40-130); Anion Gap 13.1 (5-19); Aspartate Amino Transferase 41 U/L (0-40); Blood Urea Nitrogen 41 mg/dL (8-23); Calcium 7.7 mg/dL (8.5-10.5); Carbon Dioxide 24 mmol/L (22-29); Chloride 99 mmol/L (98-107); Globulin 2.5 g/dL (1.3-4.6); Glucose 134 mg/dL (65-115); Osmolality Calculated 286 mOsm/kg (285-295); Potassium 4.1 mmol/L (3.5-5.1); Sodium 132 mmol/L (136-145); Total Bilirubin 0.6 mg/dL (0.15-1.2); Total Protein 5.5 g/dL (6.6-8.7)
[2021-03-15 06:24] LABS: Creatinine Clr Calc Pharmacy 57.2417
[2021-03-15] MEDS: ziprasidone 20 mg/mL SDV IM (06:25)
[2021-03-15 06:52] LABS: Creatine Phosphokinase 1156 U/L (39-308)
--- NOTE | 2021-03-15 09:21 | PC.NURSE ---
[facility] CATH INSERTION FIRST ATTEMPT PER STERILE TECHNIQUE. PATIENT IS SEDATED UNABLE TO TEACH BACK CAUTI EDUCATION.
[2021-03-15 09:44] LABS: Bilirubin Urine Neg (Negative); Blood Urine 3+ (Negative); Glucose Urine UA Norm (Normal); Ketones Urine Negative (Negative); Leukocyte Esterase Urine Negative (Negative); Nitrate Urine Negative (Negative); Protein Urine Neg (Negative); RBC Urine 0-4 /hpf (0-2); Specific Gravity, Urine 1.015 (1.005-1.030); Urine Appearance Clear (CLEAR); Urine Color Yellow (Yellow); Urobilinogen Urine Norm (Negative); WBC Urine 0-4 /hpf (0-5); pH Urine 5 (5-7)
[2021-03-15 09:45] LABS: Add Urine Culture? No; Bacteria Urine 1+ /hpf; Mucus Urine TRACE /hpf; Squamous Epithelial Cell Urine 0-4 /hpf (0-5)
--- NOTE | 2021-03-15 13:49 | PC.CHAP ---
Pastoral Care Encounter/Spiritual Assessment Type of Contact [] Declined international trade manager visit [] Patient/Family/Request visit [] Outpatient visit [] Follow-up visit [] Physician referral [] Code/Alert [xx] Routine visit [] Staff referral [] Actively dying [] Patient sleeping [] Family support [] [] Out of room [] Palliative care [] [] Receiving care in room [] Pre-surgical visit [] Trauma [] Long length of stay [] ICU visit [] Other: Relational/Emotional Strength [xx] Patient feels connected with others/family/visitors/staff [] Distress [] Loneliness/isolation [] Abandonment Spirituality of Patient [xx] Person of [place] [xx] Attends Jewish of their [place] [xx] Believes in Prayer [xx] Reads Bible or Adventist materials [] There are Spiritual issues to be addressed Jerker Interventions [xx] Prayer [xx] Active listening [xx] Non-anxious presence [] Spiritual/emotional support [] Crisis/trauma care [] Spiritual counseling [] Bereavement support [] Provided bereavement packet [cc] Provided Bible/devotional materials [] Provided toy/stuffed animal, coloring book to patient or family member [] Provided Communion [] Anointing/[place] [] Salvation [xx] Completed spiritual assessment [] Other: Impact on Illness or Injury [] Angry [] Fearful [] Anxious [] Often cries [] Exhaustion [] Unable to work [] Unable to attend baptist [] Unable to walk/stand [] Unable to read [] Unable to drive [] Unable to eat/drink [] Unable to sleep [] Unable to be with family [] Patient intubated [] Other: Summary Patient's was present . Patient was not feeling well and was not very talkative. , Cynthia, did most of the talking for both of them. She accepted [employer] devotional. She stated they are both very active in their pentecostalism and God keeps them going. God is not finishedd with either of them yet. Time spent with patient 7 minutes
[2021-03-15] MEDS: sodium chloride 0.9% 1,000 ML 50 ML IV (15:40)
--- NOTE | 2021-03-15 15:46 | CTR_ITS ---
PROCEDURE INFORMATION: Exam: CT Angiography Head With Contrast, Arteriography Exam date and time: 03/15/2021 5:06 PM Age: 75 years old Clinical indication: Cognitive deficit; Altered mental status; Additional info: AMS, delirium TECHNIQUE: Imaging protocol: Computed tomography angiography of the head with contrast. Exam focused on the arteries. 3D rendering (Not supervised by radiologist): MIP and/or 3D reconstructed images were created by the technologist. Radiation optimization: All CT scans at this facility use at least one of these dose optimization techniques: automated exposure control; mA and/or kV adjustment per patient size (includes targeted exams where dose is matched to clinical indication); or iterative reconstruction. Contrast material: VISI 320; Contrast volume: 95 ml; Contrast route: INTRAVENOUS (IV); COMPARISON: CT head wo con* [id number] 03/14/2021 6:51 PM RADIATION DOSE METRICS: Total DLP (mGy-cm): 1822.12 FINDINGS: ANTERIOR CIRCULATION: Right internal carotid artery: Carotid siphon calcifications. No significant stenosis. No aneurysm. Right middle cerebral artery: Unremarkable. No occlusion or significant stenosis. No aneurysm. Right anterior cerebral artery: Small A1 segment without significant focal stenosis. No aneurysm. Left internal carotid artery: Carotid siphon calcifications. No significant stenosis. No aneurysm. Left middle cerebral artery: Unremarkable. No occlusion or significant stenosis. No aneurysm. Left anterior cerebral artery: Unremarkable. No occlusion or significant stenosis. No aneurysm. POSTERIOR CIRCULATION: Right vertebral artery: Some calcification in the 4 segment with approximately 30% focal stenosis. No aneurysm. Left vertebral artery: Dominant vessel. Calcification of the V4 segment with approximately 30% focal stenosis. No aneurysm. Basilar artery: Unremarkable. No occlusion or significant stenosis. No aneurysm. Right posterior cerebral artery: Unremarkable. No occlusion or significant stenosis. No aneurysm. Left posterior cerebral artery: Unremarkable. No occlusion or significant stenosis. No aneurysm. Brain: No definite mass, mass effect, or midline shift. Cerebral ventricles: No ventriculomegaly. Bones/joints: Unremarkable. No acute fracture. Soft tissues: Unremarkable. IMPRESSION: 1. Approximately 30% stenosis of both vertebral arteries. 2. Carotid siphon calcifications without significant stenosis. 3. Small right A1 segment without focal stenosis. PROCEDURE INFORMATION: Exam: CT Angiography Neck With Contrast Exam date and time: 03/15/2021 5:06 PM Age: 75 years old Clinical indication: Cognitive deficit; Altered mental status; Additional info: AMS, delirium TECHNIQUE: Imaging protocol: Computed tomography angiography of the neck with contrast. 3D rendering (Not supervised by radiologist): MIP and/or 3D reconstructed images were created by the technologist. Radiation optimization: All CT scans at this facility use at least one of these dose optimization techniques: automated exposure control; mA and/or kV adjustment per patient size (includes targeted exams where dose is matched to clinical indication); or iterative reconstruction. Contrast material: VISI 320; Contrast volume: 95 ml; Contrast route: INTRAVENOUS (IV); COMPARISON: CT head wo con* [id number] 03/14/2021 6:51 PM RADIATION DOSE METRICS: Total DLP (mGy-cm): 1822.12 FINDINGS: Right common carotid artery: Calcification at the bifurcation No stenosis. No dissection or occlusion. Right internal carotid artery: Calcification at the carotid bulb and in the proximal internal carotid artery without significant stenosis. No dissection or occlusion. Right external carotid artery: Calcification at the origin without significant stenosis. Right vertebral artery: No stenosis. No dissection or occlusion. Left common carotid artery: No stenosis. No dissection or occlusion. Left internal carotid artery: Calcification at the carotid bulb without significant stenosis. No dissection or occlusion. Left external carotid artery: No occlusion or stenosis of the origin. Left vertebral artery: Focal high-grade stenosis, with near total occlusion at the left C5-C6 level due to significant uncovertebral and facet joint osteoarthritis. Bones/joints: No acute fracture. Severe degenerative disease at the C4-C5, C5-C6 and C6-C7 levels. Soft tissues: Normal. No significant soft tissue swelling. CT/CT angio headneck* [id number] IMPRESSION: 1. 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 2. Tortuous vessels with scattered calcifications would otherwise no focal high-grade stenosis. REFERENCES: NASCET CRITERIA. The degree of internal carotid artery stenosis is based on NASCET criteria. Normal is no stenosis. Mild is less than 50% stenosis. Moderate is 50-69% stenosis. Severe is 70% to 99% stenosis. Total occlusion is no detectable patent lumen. Radiation Dose CTDIVOL = (mGy): DLP = 1822.12~1822.12 (mGy-cm)
--- NOTE | 2021-03-15 15:50 | PM.PN ---
Subjective Subjective: Interval history: Overnight patient became confused/agitated hence Geodon was given. This morning on examination patient is calm, alert to self, place but not to ER. Patient's and daughter are at bedside. He has not had any fever, nausea, vomiting, headache. Has remained hemodynamically stable. Has a Lomeli catheter draining good amount of urine. Patient asking to go home, needs further recurrent reorientation. Vitals/I&O/Wt Last Vital Signs Temp 98.4 F 03/15/21 15:45 Pulse 63 03/15/21 15:45 Resp 18 03/15/21 15:45 BP 111/71 03/15/21 15:45 Pulse Ox 97 03/15/21 15:45 03/15/21 03/15/21 03/15/21 06:59 14:59 22:59 Intake Total 300 / 300 906.667 / 1206.667 Output Total 151 / 451 Balance -151 / 549 300 / 300 906.667 / 1206.667 Weight last 48 hrs Weight 99.393 kg Weight 99.79 kg Physical Exam Narrative: EXAM NARRATIVE: General: Pleasant, no acute distress, alert oriented to self, place but not year HEENT: PERRLA, pupils bilaterally equal and reactive Chest: Normal vesicular breath sounds, no added sounds, equal good air entry bilaterally CVS: S1-S2 regular, soft pansystolic murmur at apex, no tachycardia, no gallops, no rubs Abdomen: Soft, nontender, no organomegaly, bowel sounds present Neuro: No focal deficits, no facial deformity, AO x3, power 5/5 in all limbs, pupils bilaterally equal reactive Extremities: Left knee surgical larry present with localized hematoma, no purulent discharge mild serosanguineous discharge, right knee old surgical wound well-healed present Urinary Catheter Management^: Lomeli: Cath Placed During This Visit: yes Urinary Catheter Date of Insertion: 03/15/21 Urinary Catheter Time of Insertion: 08:28 Data : 03/15/21 05:10 03/15/21 05:10 Micro: Microbiology 03/14/21 13:05 Blood Culture - Preliminary Blood SPECIMEN COLLECTED 03/14/21 13:00 Blood Culture - Preliminary Blood SPECIMEN COLLECTED A&P Assessment and plan (1) Delirium: Status: Acute (2) Weakness: Status: Acute (3) Anemia: Status: Acute (4) Fall: Status: Acute (5) Status post left knee replacement: Status: Acute (6) XAVIER (acute kidney injury): Status: Acute (7) Atrial fibrillation: Status: Acute (8) Pacemaker: Status: Acute (9) Hypertension: Status: Acute (10) Hyperlipidemia: Status: Acute (11) Diabetes: Status: Acute Additional A&P Information 75-year-old man with past medical history of hypertension, post pacemaker, atrial fibrillation with recent left knee replacement comes to the ER with generalized weakness getting worse since yesterday after having a fall 2 days ago with seemed mechanical versus hypoglycemic event. Delirium/generalized weakness: Could be multifactorial. Multiple etiologies can be the cause. For delirium most likely cause is ing from recurrent admissions over the last 1 week including recent use of anesthesia and pain medications in setting of CKD versus XAVIER. For generalized weakness most likely a combination of blood loss anemia along with polypharmacy of antihypertensives and duplicate prescription of gabapentin at home. CT head without contrast ruled out bleed. Patient does not have any signs of infection as he has no white count, no fever and knee is benign on examination. Procalcitonin mildly elevated most likely from XAVIER. Vitamin B12 low?replaced. TSH, folate, urine lites within normal limits. Blood culture pending. Iron panel appreciated started on IV iron. CPK elevated most likely secondary to fall. Continue IV fluids. Urinalysis benign. MRSA swab pending. We will request pacemaker check while in-house to rule out any arrhythmias. Echocardiogram done but results awaited. We will request records from patient's outpatient clinical education consultant. Hold off on sedating medications. Continue gabapentin 100 mg twice daily. Avoid oxycodone. Can use Tylenol for pain. Zyprexa Zydis 5 mg at bedtime. Sitter as needed. Frequent reorienting. Hypotension: Patient's blood pressure borderline for now most likely from multiple antihypertensives while patient has blood loss anemia. For now hold off on antihypertensives. He takes Benzapril and carvedilol at home. We will continue to monitor. Goal blood pressure less than 140/90 mmHg with mean more than 65. Normal saline at 100 cc/h. Atrial fibrillation: Rate controlled. Takes Eliquis at home. Case discussed with Dr. Mora. He would prefer Eliquis to restart on Thursday-no imminent danger of holding the medication for now. Start patient on aspirin 81 mg daily. Lovenox at prophylactic dose. XAVIER: We do not have baseline creatinine. Creatinine resolving. 1.3 today. Urine lites appreciated with urine creatinine of 236 and sodium of 65. FeNa- 03.-Consistent with prerenal. IV fluids as above. CT abdomen to rule out obstructive uropathy. Medical reconciliation done for nephrotoxic drugs. For now hold off on celecoxib and ibuprofen. Type 2 diabetes mellitus: Check HbA1c. For now hold off on oral hypoglycemics. S/p left knee replacement: Physical therapy while patient is admitted. Case discussed with Dr. Mora who has examined the knee a day prior to patient being admitted. As per him no concerns for infection. X-ray shows stable arthroplasty. CODE STATUS: Patient would want to be full code. He states he would not want prolonged mechanical ventilation. He would want his and children to make decision if he is not able to make his own decisions. Regular diet. Foot pumps and Lovenox at 40 mg subcu for DVT prophylaxis. Patient's care discussed in detail with daughter and at bedside. They verbalized understanding. All questions were answered. Attestations Medical Necessity Statement*: Patient requires further hospitalization for management of delirium/generalized weakness in setting of recent left knee replacement Time Spent in Patient Care: Greater than 35 minutes (>than 50% of time spent in counselling and/or direct pt care on unit). Coding Level of Care Code Acute Supervising Floorperson for g Fwd Diagnoses Delirium R41.0 Weakness R53.1 Anemia D64.9 Fall W19.XXXA Status post left knee replacement Z96.652 XAVIER (acute kidney injury) N17.9 Atrial fibrillation I48.91 Pacemaker Z95.0 Hypertension I10 Hyperlipidemia E78.5 Diabetes E11.9
--- NOTE | 2021-03-15 16:08 | CTR_ITS ---
PROCEDURE INFORMATION: Exam: CT Abdomen And Pelvis Without Contrast Exam date and time: 03/15/2021 5:06 PM Age: 75 years old Clinical indication: Abnormal findings; Abnormal lab test; Other: Ge on ckd; Prior surgery; Surgery type: Pacer; Additional info: Ge on ckd, possible obstructive uropathy TECHNIQUE: Imaging protocol: Computed tomography of the abdomen and pelvis without contrast. Radiation optimization: All CT scans at this facility use at least one of these dose optimization techniques: automated exposure control; mA and/or kV adjustment per patient size (includes targeted exams where dose is matched to clinical indication); or iterative reconstruction. COMPARISON: CR XR knees AP WB w LT lmt ORTH 02/13/2021 8:44 AM RADIATION DOSE METRICS: Total DLP (mGy-cm): 1822.12 FINDINGS: Lungs: The visualized lung bases are clear. Liver: Normal size and density. No focal mass. Gallbladder and bile ducts: No intrahepatic or extrahepatic biliary dilitation. No calcified stones. Pancreas: Partial fatty atrophy of the pancreas. No ductal dilatation or mass. Spleen: No splenomegaly or mass. Adrenal glands: Normal. Kidneys and ureters: Mild bilateral perinephric edema. No stones or hydronephrosis. No hydroureter. Moderate to severe degenerative changes of the spine. Stomach and bowel: Scattered diverticula throughout colon. No signs of acute diverticulitis. Moderate overall stool burden. No signs of obstruction. No focal bowel wall thickening or mass identified. Appendix: No evidence of appendicitis. Intraperitoneal space: No free air. No free fluid or evidence of abscess. Vasculature: Scattered vascular calcifications. Lymph nodes: No lymphadenopathy. Urinary bladder: The urinary bladder is collapsed around a Lomeli catheter. Reproductive: Normal CT appearance for age. Bones/joints: No acute osseous abnormality. There is a well-marginated, rounded 1.7 cm hypodensity in the T8 vertebral body. Mild loss of height of some lower thoracic vertebral bodies is not acute. Soft tissues: Within normal limits. CT/CT abdomen pelvis wo con [id number] IMPRESSION: 1. No stones or hydronephrosis. Mild bilateral perinephric edema is most likely age related reflecting underlying renal disease. 2. 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 3. Mild diverticulosis. Radiation Dose CTDIVOL = (mGy): DLP = 1822.12 (mGy-cm)
[2021-03-15] MEDS: iodixanol 320 mg/mL 100mL Btl IV (18:03)
--- NOTE | 2021-03-15 18:23 | USCV_ITS ---
Sriram Rommel Age: 75 Gender: M : 1945 Exam Date: 03/15/2021 08:47 Ordering Phys: Fermin Restrepo MD Technologist: Nicole Kyle [place] [facility] [place]ication: H/O PULMONARY HYPERTENSION AND DIASTOLIC DYSFUNCTION BP: 111 / 70 HR: Rhythm: Sinus Technical Quality: Suboptimal MEASUREMENTS (Male / Female) Normal Values 2D ECHO LV Diastolic Diameter PLAX 4.5 cm 4.2 - 5.9 / 3.9 - 5.3 cm LV Systolic Diameter PLAX 2.0 cm LV Chamber Size 4.5 cm IVS Diastolic Thickness 1.4 cm 0.6 - 1.0 / 0.6 - 0.9 cm IVS Systolic Thickness 1.5 cm LVPW Diastolic Thickness 0.8 cm 0.6 - 1.0 / 0.6 - 0.9 cm LVPW Systolic Thickness 1.6 cm RV Chamber Size 4.3 cm LVOT Diameter 2.0 cm LV Ejection Fraction 2D Teich 86.9 % LV Ejection Fraction MOD 2C 67.2 % LV Ejection Fraction 2C AL 65.3 % LA Diameter 5.1 cm LA Width 4.8 cm LA Height 8.6 cm RA Width 3.1 cm RA Height 6.6 cm Aorta at Sinotubular Diameter 3.1 cm M-MODE LV Diastolic Diameter MM 5.7 cm 4.2 - 5.9 / 3.9 - 5.3 cm LV Systolic Diameter MM 3.3 cm LV Ejection Fraction MM Teich 73.1 % IVS Diastolic Thickness MM 1.1 cm 0.6 - 1.0 / 0.6 - 0.9 cm IVS Systolic Thickness MM 1.7 cm LVPW Diastolic Thickness MM 1.0 cm 0.6 - 1.0 / 0.6 - 0.9 cm LVPW Systolic Thickness MM 1.5 cm RV Diastolic Diameter MM 1.9 cm Aortic Annulus Diameter 3.5 cm LA Ao Ratio MM 1.8 MV E Point Septal Separation 0.3 cm DOPPLER AV Peak Velocity 129.0 cm/s LVOT Peak Velocity 86.0 cm/s AV Area Cont Eq vti 1.9 cm squared AV Area Cont Eq pk 2.1 cm squared MV Area PHT 4.6 cm squared Mitral E to A Ratio 5.3 MV E' Velocity 65.0 cm/s Mitral E to MV E' Ratio 11.3 Mitral E to LV E' Lateral Ratio 11.9 Mitral E to LV E' Septal Ratio 10.8 TR Peak Velocity 228.2 cm/s TR Peak Gradient 20.8 mmHg TR Mean Velocity 170.2 cm/s TR Mean Gradient 12.4 mmHg TR Velocity Time Integral 72.3 cm TV Peak E Velocity 62.0 cm/s Right Atrial Pressure 15.0 mmHg Pulmonary Artery Systolic Pressu 35.8 mmHg PV Peak Velocity 90.0 cm/s RV Acceleration Time 0.1 s RV Ejection Time 0.3 s RV AcT/ET 0.3 FINDINGS Left Ventricle Normal left ventricular cavity size. Normal left ventricular systolic function. No regional wall motion abnormalities. Left ventricular ejection fraction is estimated at 55 %. The presence of atrial fibrillation diastolic function cannot be assessed accurately. Right Ventricle Normal right ventricular size. Catheter/pacemaker wire visualized in the right ventricle. Right Atrium Moderately increased right atrial size. Catheter/pacemaker wire in the right atrial cavity. Left Atrium Moderately increased left atrial size. Mitral Valve Moderately thickened mitral valve. No mitral valve stenosis. Moderate mitral valve regurgitation. Aortic Valve Mild aortic valve calcification. Mild aortic valve stenosis, mean gradient 3.7 mmHg, ROSETTA 1.9 cm squared. Trace aortic valve regurgitation. Tricuspid Valve Thickened tricuspid valve. Severe tricuspid valve regurgitation. Pulmonic Valve Structurally normal pulmonic valve without significant stenosis. There is no pulmonic regurgitation. Pericardium Normal pericardium without effusion. Aorta Normal ascending aorta dimension. CONCLUSIONS 1-Normal left ventricular cavity size. Normal left ventricular systolic function. No regional wall motion abnormalities. Left ventricular ejection fraction is estimated at 55 %. The presence of atrial fibrillation diastolic function cannot be assessed accurately. 2-Mild aortic valve calcification. Mild aortic valve stenosis, mean gradient 3.7 mmHg, ROSETTA 1.9 cm squared. Trace aortic valve regurgitation. 3-Moderately thickened mitral valve. No mitral valve stenosis. Moderate mitral valve regurgitation. 4-Moderately increased right atrial size. Catheter/pacemaker wire in the right atrial cavity. 5-Normal right ventricular size. Catheter/pacemaker wire visualized in the right ventricle. 6-Moderately increased left atrial size. 7-Thickened tricuspid valve. Severe tricuspid valve regurgitation. 8-There is no pericardial effusion. 9-Right atrial pressure is around 5 mm of mercury. 10-There are no prior echocardiogram studies to compare. Aleja Umaña MD (Electronically Signed) Final Date: 17 March 2021 15:52 S
[2021-03-15] MEDS: iron sucrose 200 MG in sodium chloride 0.9% (100 ml) 100 ML 220 MG IV (18:34)
[2021-03-15] MEDS: enoxaparin 40 mg/0.4 mL Syringe SUBCUT (18:35)
[2021-03-15] MEDS: gabapentin 100 mg Capsule PO (18:35)
[2021-03-15] MEDS: aspirin 81 mg EC Tablet PO (18:35)
[2021-03-15] MEDS: cyanocobalamin 1,000 mcg/mL SDV 1000 MCG IM (18:35)
[2021-03-15] MEDS: famotidine 20 mg/2 mL INJ IVP (19:32)
[2021-03-15] MEDS: acetaminophen 500 mg Tablet 1000 MG PO (19:32)
[2021-03-15] MEDS: OLANZapine 5 mg ODT PO (21:43)
[2021-03-15] MEDS: tamsulosin 0.4 mg Capsule PO (21:43)
[2021-03-15] MEDS: atorvastatin 40 mg Tablet 80 MG PO (21:43)
--- NOTE | 2021-03-15 22:18 | PC.NURSE ---
Refusing Cardiac monitoring This nurse has visited with patient and his spouse about the importance of him having on the tele and the has stated that all the cords make the patient very anxious and he was taking them off. stated she understands the need for the monitoring but refuses to let this nurse place it on the patient. states she does not think it is worth the patient getting so worked up over it. Will continue to monitor patient.
[2021-03-16] MEDS: sodium chloride 0.9% 1,000 ML 100 ML IV (03:29)
[2021-03-16 03:44] VITALS: BP 94/58; PULSE 60; RESP 18; TEMP 36.7; O2SAT 93
[2021-03-16] MEDS: allopurinol 300 mg Tablet PO (06:02)
[2021-03-16 07:22] LABS: Alanine Aminotransferase 25 U/L (0-41); Albumin Level 3.1 g/dL (3.5-5.2); Alkaline Phosphatase 71 IU/L (40-130); Anion Gap 12.7 (5-19); Aspartate Amino Transferase 50 U/L (0-40); Blood Urea Nitrogen 28 mg/dL (8-23); Calcium 8.3 mg/dL (8.5-10.5); Carbon Dioxide 27 mmol/L (22-29); Chloride 100 mmol/L (98-107); Chol HDL Ratio 2.88 mg/dL (1.0-5.00); Cholesterol 92 mg/dL (0-200); Glucose 119 mg/dL (65-115); HDL Cholesterol 32 mg/dL (60-100); LDL Cholesterol Calculated 41 mg/dL (50-129); Osmolality Calculated 289 mOsm/kg (285-295); Potassium 3.7 mmol/L (3.5-5.1); Sodium 136 mmol/L (136-145); Total Bilirubin 1.1 mg/dL (0.15-1.2); Total Protein 6.1 g/dL (6.6-8.7); Triglycerides 94 mg/dL (0-150); VLDL Cholestrol Calculation 19 mg/dL (0-30)
[2021-03-16 07:50] VITALS: BP 113/57; PULSE 60; RESP 17; TEMP 36.5; O2SAT 97
[2021-03-16] MEDS: aspirin 81 mg EC Tablet PO (08:11)
[2021-03-16] MEDS: famotidine 20 mg/2 mL INJ IVP (08:11)
[2021-03-16] MEDS: gabapentin 100 mg Capsule PO (08:11)
[2021-03-16 11:33] VITALS: BP 119/83; PULSE 66; RESP 18; TEMP 36.7; O2SAT 96
[2021-03-16 12:15] LABS: Basophils % 0.6 %; Eosinophils # 0.2 10^3/uL (0.0-0.8); Eosinophils % 2.4 %; Hemoglobin 9.8 g/dL (11.7-16.6); Lymphocytes # 0.9 10^3/uL (0.8-4.8); Lymphocytes % 12.8 %; Mean Corpuscular HGB Conc 30.6 g/dL (30.0-36.0); Mean Corpuscular Hemoglobin 28.7 pg (28.0-34.0); Mean Corpuscular Volume 93.8 fL (80-94); Mean Platelet Volume 11.2 fL (7.4-10.4); Monocytes # 0.6 10^3/uL (0.2-0.9); Neutrophils # 5.06 10^3/uL (1.8-7.7); Neutrophils % 74.6 %; Nucleated Red Blood Cells % 0 %; Platelet Count 181 10^3/cmm (130-400); Red Blood Count 3.41 10^6/uL (4.1-5.3); Red Cell Distribution Width 15.5 % (12.1-15.1); White Blood Count 6.8 10^3/uL (4.0-10.0)
--- NOTE | 2021-03-16 12:28 | P.DS_ITS ---
Discharge Providers Date of Admission: 03/14/21 17:44 Date of Discharge: March 16, 2021 Attending Provider at Admission: Rachel Kang MD Attending Provider at Discharge: Fermin Restrepo MD Primary Care Provider: Roxanne Serrato APN Diagnoses at Discharge Discharge Diagnosis (1) Delirium: Status: Acute (2) Weakness: Status: Acute (3) Anemia: Status: Acute (4) Fall: Status: Acute (5) Status post left knee replacement: Status: Acute (6) XAVIER (acute kidney injury): Status: Acute (7) Atrial fibrillation: Status: Acute (8) Pacemaker: Status: Acute Permanent problem details: Dr. Austin Gonzales [phone] (9) Hypertension: Status: Acute (10) Hyperlipidemia: Status: Acute (11) Diabetes: Status: Acute Reason for Visit Reason for Visit: KNEE PAIN Hospital Course Hospital Course Rommel Bhatia is a 75 year old male with past medical history of hypertension, type 2 diabetes mellitus, atrial fibrillation, pacemaker implantation, chronic anticoagulation with Eliquis, who was recently discharged on March 12 after left knee replacement comes back today to the ER for generalized weakness getting worse since yesterday. History taken by patient and his who is at bedside. As per the patient he left from the hospital on Thursday he was feeling very well but in the afternoon on Thursday while he was sitting at his barstool he felt dizzy and fell after which he hit his left knee which is a surgical knee and bled quite profusely from there. His fall was not preceded by any nausea, vomiting, chest pain, palpitations, weakness in any of his arms, headache. He states he felt as if his blood sugars were low. As per patient usually takes Metformin at home but prior to discharge he was on NovoLog. He received NovoLog on the day of morning of discharge but did not eat well. Though he did not check his blood sugars around the fall. Patient denies hitting his head. He states he was doing well until yesterday when he had gone to see Dr. Mora in his office as a follow-up. As per the patient on his way back from his office he started feeling really weak and since then weakness has continued to worsen. He denies any localized weakness, no numbness and states he just does not want to get of bed. As per the patient has been taking his medications regularly including his antihypertensives. They also state that at home at baseline he takes 100 gabapentin twice daily and he was discharged by Dr. Mora on gabapentin 300 mg twice daily and since discharge he has been taking both the prescriptions at same time. He denies any fever, nausea, vomiting, headache, cough, dysuria, diarrhea, constipation, headache, known sick contacts, recent travels, history of similar problems, abdominal pain. Today prior to coming to the ER and home health had reached his home his blood pressures were in the 70s systolic so he presented to the ER. His blood work in the ER showed a white count of 9.6, hemoglobin of 8.9 which was 10.7 2 days ago and 13.7 earlier in this month, platelet count of 124, sodium of 134, creatinine of 1.7, BUN of 45, UA negative for any signs of infection. Knee x-ray negative for any acute pathology and stable arthroplasty. Patient was under the hospital for further evaluation of weakness. Infectious etiology was ruled out by no white count, no fever, negative blood cultures and procalcitonin. Stroke was ruled out with CT head and CTA head and neck within normal limits. Patient did not have any arrhythmia on telemetry. It is believed patient symptoms are most likely because of polypharmacy of antihypertensives especially while he had acute blood loss anemia from blood loss from left knee post fall along with duplication of gabapentin at home and pain medications in setting of XAVIER. During hospitalization patient's hemoglobin remained stable. Patient was started on IV fluids and his kidney functions came back to normal on the day of discharge. His antihypertensives were stopped and blood pressures remained normal off antihypertensives. During hospitalization patient had an episode of confusion and agitation overnight on his first night of admission for which he required frequent reorientation. On the day of discharge patient was AO x3 with family at bedside. Patient's care was discussed with his orthopedic surgeon Dr. Mora and he advised Eliquis if possible to be withheld till March 18. During that. Patient is to take aspirin 81 mg daily. Once he resumes Eliquis aspirin can be stopped. He is to follow-up with his primary care provider within next 4 to 7 days. He is to check his blood pressures twice daily and maintain a blood pressure diary to follow-up with his primary care provider. Antihypertensives can be reinitiated as per the blood pressure charting. During hospitalization possible discharge planning with multiple options for safe discharge planning were discussed with patient and patient's family at bedside because of generalized weakness and recent left knee arthroplasty. Options which were discussed were SNF versus placement at swing bed versus home health. Patient denied placement to SNF but they were open to placement to swing bed if needed but before doing that they would want to give it a try at home with home health. Family will pursue placement to swing bed as an outpatient if they are not able to take care of the patient at home. Prior to discharge patient worked appropriately with physical therapy on the day of discharge. Physical Exam Narrative: EXAM NARRATIVE: General: Pleasant, no acute distress, alert oriented to self, place but not year HEENT: PERRLA, pupils bilaterally equal and reactive Chest: Normal vesicular breath sounds, no added sounds, equal good air entry bilaterally CVS: S1-S2 regular, soft pansystolic murmur at apex, no tachycardia, no gallops, no rubs Abdomen: Soft, nontender, no organomegaly, bowel sounds present Neuro: No focal deficits, no facial deformity, AO x3, power 5/5 in all limbs, pupils bilaterally equal reactive Extremities: Left knee surgical larry present with localized hematoma, no purulent discharge mild serosanguineous discharge, right knee old surgical wound well-healed present Urinary Catheter Management^: Lomeli: Cath Placed During This Visit: yes Reason for Continuing Indwelling Catheter: Accurate Measurement of Urinary Output in Critically Ill Patients Urinary Catheter Date of Insertion: 03/15/21 Urinary Catheter Time of Insertion: 08:28 Discharge Data Data Completed and Pending: Completed Studies During Hospitalization Category Date Time Status CT abdomen pelvis wo con [id number] Rout ine Cat Scan 03/15/21 16:[address] angio headneck * [id number] Rout ine Cat Scan 03/15/21 15:[address] head wo con* [id number] Urgent Cat Scan 03/14/21 18:25 Completed XR chest 1V mine ble [id number] Stat Exams 03/14/21 15:16 Completed XR knee LT 3V* [id number] Stat Exams 03/14/21 15:16 Completed Pending at discharge Category Date Time Status Blood Culture Sta t Lab 03/14/21 13:05 Results Hemoglobin A1C Ro utine Lab 03/16/21 10:40 Received Immunochemical Fe jadyn OCB Routine Lab 03/14/21 16:22 Uncollected Urine Culture Sta t Lab 03/14/21 16:26 Results CV echo complete* [id number] Routine Ultrasound 03/15/21 18:23 Taken Labs from last 24 hours 03/16/21 03/16/21 03/16/21 10:40 10:40 06:38 WBC 6.8 Corrected WBC RBC 3.41 L Hgb 9.8 L Hct 32.0 L MCV 93.8 MCH 28.7 MCHC 30.6 RDW 15.5 H Plt Count 181 MPV 11.2 H Gran % Neut % (Auto) 74.6 Lymph % (Auto) 12.8 Rapides % (Auto) 9.0 Eos % (Auto) 2.4 Baso % (Auto) 0.6 Neut # (Auto) 5.06 Lymph # (Auto) 0.9 Rapides # (Auto) 0.6 Eos # (Auto) 0.2 Baso # (Auto) 0.0 Absolute Gran (aut o) Nucleated RBC % (a uto) 0 Nucleated RBCs # 0.0 Sodium Potassium Chloride Carbon Dioxide Anion Gap BUN Creatinine GFR Calculation Glucose Estimat Average Gl ucose Pending Cancelled Hemoglobin A1c Pending Cancelled Calculated Osmolal ity Calcium Total Bilirubin AST ALT Alkaline Phosphata se Total Protein Albumin Globulin Triglycerides Cholesterol LDL Cholesterol, C alc Total VLDL Cholest fortunato HDL Cholesterol Cholesterol/HDL Ra alan 03/16/21 03/16/21 06:38 06:38 WBC Cancelled Corrected WBC Cancelled RBC Cancelled Hgb Cancelled Hct Cancelled MCV Cancelled MCH Cancelled MCHC Cancelled RDW Cancelled Plt Count Cancelled MPV Cancelled Gran % Cancelled Neut % (Auto) Cancelled Lymph % (Auto) Cancelled Rapides % (Auto) Cancelled Eos % (Auto) Cancelled Baso % (Auto) Cancelled Neut # (Auto) Cancelled Lymph # (Auto) Cancelled Rapides # (Auto) Cancelled Eos # (Auto) Cancelled Baso # (Auto) Cancelled Absolute Gran (aut o) Cancelled Nucleated RBC % (a uto) Cancelled Nucleated RBCs # Cancelled Sodium 136 Potassium 3.7 Chloride 100 Carbon Dioxide 27 Anion Gap 12.7 BUN 28 H Creatinine 0.9 GFR Calculation Not Reportable Glucose 119 H Estimat Average Gl ucose Hemoglobin A1c Calculated Osmolal ity 289 Calcium 8.3 L Total Bilirubin 1.1 AST 50 H ALT 25 Alkaline Phosphata se 71 Total Protein 6.1 L Albumin 3.1 L Globulin 3.0 Triglycerides 94 Cholesterol 92 LDL Cholesterol, C alc 41 L Total VLDL Cholest fortunato 19 HDL Cholesterol 32 L Cholesterol/HDL Ra alan 2.88 Addt'l Data from Hospital Stay: Laboratory Results WBC 6.8 10^3/uL (4.0- 10.0) 03/16/21 10:40 Corrected WBC Cancelled 03/16/21 06:38 RBC 3.41 10^6/uL (4.1 -5.3) L 03/16/21 10:40 Hgb 9.8 g/dL (11.7-16 .6) L 03/16/21 10:40 Hct 32.0 % (42.0-52.0 ) L 03/16/21 10:40 MCV 93.8 fL (80-94) 03/16/21 10:40 MCH 28.7 pg (28.0-34. 0) 03/16/21 10:40 MCHC 30.6 g/dL (30.0-3 6.0) 03/16/21 10:40 RDW 15.5 % (12.1-15.1 ) H 03/16/21 10:40 Plt Count 181 10^3/cmm (130 -400) 03/16/21 10:40 MPV 11.2 fL (7.4-10.4 ) H 03/16/21 10:40 Gran % Cancelled 03/16/21 06:38 Neut % (Auto) 74.6 % 03/16/21 10:40 Lymph % (Auto) 12.8 % 03/16/21 10:40 Rapides % (Auto) 9.0 % 03/16/21 10:40 Eos % (Auto) 2.4 % 03/16/21 10:40 Baso % (Auto) 0.6 % 03/16/21 10:40 Neut # (Auto) 5.06 10^3/uL (1.8 -7.7) 03/16/21 10:40 Lymph # (Auto) 0.9 10^3/uL (0.8- 4.8) 03/16/21 10:40 Rapides # (Auto) 0.6 10^3/uL (0.2- 0.9) 03/16/21 10:40 Eos # (Auto) 0.2 10^3/uL (0.0- 0.8) 03/16/21 10:40 Baso # (Auto) 0.0 10^3/uL (0.0- 0.1) 03/16/21 10:40 Absolute Gran (aut o) Cancelled 03/16/21 06:38 Nucleated RBC % (a uto) 0 % 03/16/21 10:40 Nucleated RBCs # 0.0 /100WBC 03/16/21 10:40 PT 16.20 SECONDS (12 .1-14.9) H 03/15/21 05:10 INR 1.26 (0.8-1.2) H 03/15/21 05:10 Sodium 136 mmol/L (136-1 45) 03/16/21 06:38 Potassium 3.7 mmol/L (3.5-5 .1) 03/16/21 06:38 Chloride 100 mmol/L (98-10 7) 03/16/21 06:38 Carbon Dioxide 27 mmol/L (22-29) 03/16/21 06:38 Anion Gap 12.7 (5-19) 03/16/21 06:38 BUN 28 mg/dL (8-23) H 03/16/21 06:38 Creatinine 0.9 mg/dL (0.7-1. 2) 03/16/21 06:38 GFR Calculation Not Reportable 03/16/21 06:38 Glucose 119 mg/dL (65-115 ) H 03/16/21 06:38 Estimat Average Gl ucose Cancelled 03/16/21 06:38 Hemoglobin A1c Cancelled 03/16/21 06:38 Calculated Osmolal ity 289 mOsm/kg (285- 295) 03/16/21 06:38 Lactic Acid 1.2 mmol/L (0.5-2 .2) 03/14/21 19:42 Calcium 8.3 mg/dL (8.5-10 .5) L 03/16/21 06:38 Phosphorus 2.1 mg/dL (2.5-4. 5) L 03/15/21 05:10 Magnesium 2.0 mg/dL (1.7-2. 3) 03/15/21 05:10 Iron 10 ug/dL (59-158) L 03/14/21 15:40 TIBC 193 mcg/dl 03/14/21 15:40 % Saturation 5.1 % (20-50) L 03/14/21 15:40 Unsat Iron Binding 183 ug/dL (112-34 7) 03/14/21 15:40 Total Bilirubin 1.1 mg/dL (0.15-1 .2) 03/16/21 06:38 AST 50 U/L (0-40) H 03/16/21 06:38 ALT 25 U/L (0-41) 03/16/21 06:38 Alkaline Phosphata se 71 IU/L (40-130) 03/16/21 06:38 Creatine Kinase 1156 U/L (39-308) H* 03/15/21 05:10 NT-Pro-B Natriuret Pep 1900 pg/mL (0-450 ) H 03/14/21 15:40 Total Protein 6.1 g/dL (6.6-8.7 ) L 03/16/21 06:38 Albumin 3.1 g/dL (3.5-5.2 ) L 03/16/21 06:38 Globulin 3.0 g/dL (1.3-4.6 ) 03/16/21 06:38 Triglycerides 94 mg/dL (0-150) 03/16/21 06:38 Cholesterol 92 mg/dL (0-200) 03/16/21 06:38 LDL Cholesterol, C alc 41 mg/dL (50-129) L 03/16/21 06:38 Total VLDL Cholest fortunato 19 mg/dL (0-30) 03/16/21 06:38 HDL Cholesterol 32 mg/dL (60-100) L 03/16/21 06:38 Cholesterol/HDL Ra alan 2.88 mg/dL (1.0-5 .00) 03/16/21 06:38 Vitamin B12 170 pg/mL (232-12 45) L 03/14/21 15:40 Folate 7.2 ng/mL (4.5-32 .2) 03/14/21 15:40 Procalcitonin 1.28 ng/mL (0-0.5 ) H 03/14/21 15:40 TSH 3.17 uIU/mL (0.27 -4.20) 03/14/21 15:40 Urine Color Yellow (Yellow) 03/15/21 08:28 Urine Appearance Clear (CLEAR) 03/15/21 08:28 Urine pH 5 (5-7) 03/15/21 08:28 Ur Specific Gravit y 1.015 (1.005-1.0 30) 03/15/21 08:28 Urine Protein Neg (Negative) 03/15/21 08:28 Urine Glucose (UA) Norm (Normal) 03/15/21 08:28 Urine Ketones Negative (Negati ve) 03/15/21 08:28 Urine Blood 3+ (Negative) H 03/15/21 08:28 Urine Nitrate Negative (Negati ve) 03/15/21 08:28 Urine Bilirubin Neg (Negative) 03/15/21 08:28 Urine Urobilinogen Norm mg/dL (Negat bree) 03/15/21 08:28 Ur Leukocyte Kyara ase Negative (Negati ve) 03/15/21 08:28 Urine RBC 0-4 /hpf (0-2) H 03/15/21 08:28 Urine WBC 0-4 /hpf (0-5) H 03/15/21 08:28 Ur Squamous Epith Cells 0-4 /hpf (0-5) H 03/15/21 08:28 Amorphous Sediment Not Reportable 03/15/21 08:28 Urine Bacteria 1+ /hpf (NONE) H 03/15/21 08:28 Fine Granular Cast s 5-10 /lpf H 03/14/21 16:26 Urine Mucus Trace /hpf 03/15/21 08:28 Ur Random Sodium 65 mmol/L 03/14/21 16:26 Ur Random Potassiu m 51 mmol/L 03/14/21 16:26 Ur Random Chloride 48 mmol/L 03/14/21 16:26 Urine Creatinine 236 mg/dL (39-259 ) 03/14/21 16:26 Impressions Chest X-Ray 03/14/21 15:16 Impression: Cardiomegaly and atherosclerosis. Knee X-Ray 03/14/21 15:16 Impression: Intact left knee arthroplasty. Head CT 03/14/21 18:25 IMPRESSION: No acute intracranial abnormality. Radiation Dose CTDIVOL = (mGy): DLP = 1020.63 (mGy-cm) Head/Neck CTA 03/15/21 15:46 IMPRESSION: 1. 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 2. Tortuous vessels with scattered calcifications would otherwise no focal high-grade stenosis. REFERENCES: NASCET CRITERIA. The degree of internal carotid artery stenosis is based on NASCET criteria. Normal is no stenosis. Mild is less than 50% stenosis. Moderate is 50-69% stenosis. Severe is 70% to 99% stenosis. Total occlusion is no detectable patent lumen. Radiation Dose CTDIVOL = (mGy): DLP = 1822.12~1822.12 (mGy-cm) Abdomen/Pelvis CT 03/15/21 16:08 IMPRESSION: 1. No stones or hydronephrosis. Mild bilateral perinephric edema is most likely age related reflecting underlying renal disease. 2. 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 3. Mild diverticulosis. Radiation Dose CTDIVOL = (mGy): DLP = 1822.12 (mGy-cm) Vitals: Last Vital Signs Temp 98.0 F 03/16/21 11:33 Pulse 66 03/16/21 11:33 Resp 18 03/16/21 11:33 BP 119/83 03/16/21 11:33 Pulse Ox 96 03/16/21 11:33 Discharge Plan Discharge Patient Disposition: Home Health Service Condition: Stable Prescriptions: New aspirin 81 mg Tablet,Delayed Release (Dr/Ec) 81 mg PO DAILY 2 Days Qty: 2 RF: 0 olanzapine 5 mg Tablet,Disintegrating 5 mg PO BEDTIME Qty: 30 RF: 0 ferrous fum-vit C-vit B12-FA 460-60-0.01-1 mg capsule 1 cap PO DAILY Qty: 30 RF: 0 Continued allopurinol 300 mg tablet 300 mg PO QAM RF: 0 metformin 500 mg tablet 500 mg PO BID RF: 0 tamsulosin 0.4 mg Capsule 0.4 mg PO BEDTIME RF: 0 rosuvastatin 20 mg Tablet 20 mg PO BEDTIME RF: 0 gabapentin 100 mg Capsule 100 mg PO BID RF: 0 acetaminophen 500 mg tablet 1,000 mg PO Q8H PRN (Reason: Pain) RF: 0 Held carvedilol 12.5 mg tablet 12.5 mg PO BID RF: 0 Hold Instructions: Resume on 03/23/21. hydrochlorothiazide 25 mg tablet 25 mg PO QAM RF: 0 Hold Instructions: Resume on 03/23/21. Eliquis 5 mg tablet 5 mg PO BID RF: 0 Hold Instructions: Resume on 03/18/21. benazepril 20 mg tablet 20 mg PO QAM RF: 0 Hold Instructions: Resume on 03/23/21. Discontinued celecoxib 200 mg Capsule 200 mg PO Q12H 15 Days Qty: 30 RF: 0 gabapentin 300 mg Capsule 300 mg PO BID 7 Days Qty: 14 RF: 0 oxycodone 5 mg Tablet 5 mg PO Q4H PRN (Reason: Moderate Pain) 7 Days Qty: 40 RF: 0 ibuprofen 200 mg Tablet 400 - 800 mg PO PRN RF: 0 Discharge Orders: Discharge Order (Routine); Ordered 03/16/21 Ordered By: Fermin Restrepo Referrals: Roxanne Serrato APN [Primary Care Provider] - 4-7 days (Please call Thursday to schedule a follow up appointment.) Discharge Diet: Regular Discharge Activity: Resume usual activity and Increase activity as tolerated Patient Instructions: Anemia, Iron Supplements (By mouth), Aspirin (By mouth), Olanzapine (By mouth), Acute Kidney Injury (DC), Fall Prevention (GEN), Opioid Safety Activity Restrictions/Additional Instructions: Antihypertensives including carvedilol and Benzapril has been withheld for now. Please check blood pressure at home twice daily and maintain a blood pressure diary which you should take with you when you follow-up with a primary care provider within next 7 days. Medications to be reinitiated only after follow-up with your primary care provider. You can resume your Burak from March 18. He is supposed to do gabapentin 100 mg twice daily. For pain you can take Tylenol. Please try to avoid using oxycodone as it can cause sedation. Please follow-up your primary care provider within next 4 to 7 days. Discharge Attestations Time Spent in Discharge Care*: greater than 30 min Specific Discharge Activities: educating patient, educating and/or supporting family/caregiver, discussing with pcp/other providers, discussing with watch case polisher/social workers/dc planners, documenting/other paperwork and evaluating patient/reviewing data Status at Discharge: Cognitive status at discharge: cognitively intact , Behavioral status at discharge: cooperative , Functional status at discharge: other assisted ambulation Overall status at discharge: patient is progressing back to baseline Quality Metrics Clinical Quality Measures During this hospital stay, did patient experience: None Coding Level of Care Code Acute g FW NE note Diagnoses Delirium R41.0 Weakness R53.1 Anemia D64.9 Fall W19.XXXA Status post left knee replacement Z96.652 XAVIER (acute kidney injury) N17.9 Atrial fibrillation I48.91 Pacemaker Z95.0 Hypertension I10 Hyperlipidemia E78.5 Diabetes E11.9
[2021-03-16 14:21] LABS: Estmated Average Glucose 128; Hemoglobin A1C 6.1 % (4.0-6.0)
--- NOTE | 2021-03-16 15:47 | PC.NURSE ---
Discussed discharge instructions with patient and . Patient and stated understanding. IV removed, tip of catheter intact. Patient wheeled out via wheel chair with .
[2021-03-16 16:05] VITALS: BP 119/83; PULSE 66; RESP 18; TEMP 36.7; O2SAT 96
== END 2021-03-16 16:05 | disposition home health service (06) | DRG 948 ==
LOC: ER 15:39 → MEDSURG 19:00 → CSU 22:43 → MEDSURG 03-15 00:44
PROVIDERS: Internal Medicine; Admitting Provider Student in an Organized Health Care Education/Training Program; Emergency Provider Family Medicine; PCP Nurse Practitioner Family; Visit Provider Student in an Organized Health Care Education/Training Program
DX: R53.1 Weakness (principal); D62 Acute posthemorrhagic anemia; N17.9 Acute kidney failure, unspecified; F05 Delirium due to known physiological condition; I95.9 Hypotension, unspecified; T50.995A Adverse effect of other drugs, medicaments and biological substances, initial encounter; I10 Essential (primary) hypertension; E11.9 Type 2 diabetes mellitus without complications; I48.91 Unspecified atrial fibrillation; E78.5 Hyperlipidemia, unspecified; Z79.01 Long term (current) use of anticoagulants; Z79.891 Long term (current) use of opiate analgesic; Z79.84 Long term (current) use of oral hypoglycemic drugs; Z96.652 Presence of left artificial knee joint; Z98.890 Other specified postprocedural states; Z95.0 Presence of cardiac pacemaker; Z91.81 History of falling
CPT/HCPCS: 36415; 36416; 51702; 70450; 70496; 70498; 71045; 73560; 73562; 74176; 80053; 80061; 81001; 82436; 82550; 82570; 82607; 82746; 82962; 83036; 83540; 83550; 83605; 83735; 83880; 84100; 84133; 84145; 84300; 84443; 85018; 85025; 85610; 87040; 87086; 87641; 93005; 93306; 94664; 96360; 96372; 97110; 97116; 97161; 97162; 97530; 99285; C1776; G0378; J0171; J0690; J1580; J1650; J1756; J1815; J1885; J2370; J2405; J2704; J2795; J3420; J3486; J3490; J7030; Q9967

== ENCOUNTER 2021-04-07 10:08 | Emergency (ER) | payer MEDICARE, BC, SELFPAY ==
[2021-04-07 10:10] VITALS: BP 149/86; PULSE 87; RESP 18; TEMP 36.6; O2SAT 95; BMI 33.4
--- NOTE | 2021-04-07 10:18 | XRR_ITS ---
PROCEDURE INFORMATION: Exam: XR Chest Exam date and time: 04/07/2021 10:41 AM Age: 75 years old Clinical indication: Other: Weakness TECHNIQUE: Imaging protocol: XR of the chest. Views: 1 view. COMPARISON: CR XR chest 1V portable [id number] 03/14/2021 3:43 PM FINDINGS: Tubes, catheters and devices: A cardiac pacing device is again seen projecting over the left chest. Lungs: Low lung volumes. No evidence of focal consolidation. Pleural spaces: Unremarkable. No pleural effusion. No pneumothorax. Heart/Mediastinum: Stable cardiomediastinal silhouette. Bones/joints: Degenerative changes of the spine and shoulder joints noted. No acute osseous injury identified. XR/XR chest 1V portable [id number] IMPRESSION: No evidence of active cardiopulmonary disease.
--- NOTE | 2021-04-07 10:18 | W.ED.BACK ---
HPI - Back Pain/Injury General: Chief Complaint: Back Pain/Injury Stated Complaint: BACK PAIN; LOWER EXT WEAKNESS Time Seen by Provider: 04/07/21 10:11 History of Present Illness: HPI Narrative: 75-year-old male presents with generalized leg weakness. Reports is bilateral. Patient has full range of motions just reports that when he gets up to stand his legs are weak and just will not support him. He has some chronic lower back pain that is not new. He denies any fevers, chills, nausea or vomiting. Patient has no reports of chest pain. No focal weakness but just generalized weakness. Patient reports these been having therapy following a left knee replacement in February. Associated symptoms: Deny abdominal pain, chills, dysuria, fever(s), nausea or vomiting Review of Systems Const: Reports: other (Generalized weakness); Denies: fever(s) or chills ENMT: Denies: throat pain Card: Denies: chest pain or palpitations Resp: Denies: dyspnea, productive cough or wheezing GI: Denies: abdominal pain, nausea or vomiting : Denies: difficulty urinating or dysuria Musc: Reports: other (Please see HPI) Skin/Breast: Denies: rash Neuro: Reports: weakness in extremities PFS ED PFSH: Medical History Atrial fibrillation Atrial fibrillation Chronic back pain Chronic neck and back pain Diabetes History of back pain History of hematuria Hyperlipidemia Hypertension Pacemaker Dr. Austin Gonzales [phone] Surgical History History of right knee joint replacement Dr. Morales in [place] History of thumb surgery Status post left knee replacement Family History Other CAD (coronary artery disease) Diabetes Social History Smoking and tobacco status: never smoked Alcohol intake: never Marital status: Physical Exam Const: COMMON NORMALS: no acute distress, patient oriented x3 and alert GENERAL APPEARANCE: cooperative Chest: COMMONS NORMALS: normal inspection of the chest Resp: COMMON NORMALS: normal respiratory effort and clear to auscultation bilaterally EFFORT & INSPECTION: Yes able to speak in complete sentences AUSCULTATION: clear to auscultation bilaterally Cardio: COMMON NORMALS: regular rate and regular rhythm RATE: regular rate RHYTHM: regular rhythm Extremity: NARRATIVE EXTREMITY EXAM: Left knee incision clean dry intact with decreased range of motion that is normal post surgical, mild left knee swelling, otherwise normal range of motion on all extremities Neuro: COMMON NORMALS: patient oriented x3, CN's II-XII intact bilaterally and moves all extremities SENSORIUM/ORIENTATION: Yes alert GAIT: Yes Unable to assess gait (Generalized lower extremity weakness) Psych: COMMON NORMALS: cooperative and normal affect Skin: COMMON NORMALS: no rashes or lesions noted GENERAL SKIN EXAM: no rashes or lesions noted Course Vital Signs: Vital signs: Vital Signs Temperature 97.8 F 04/07/21 10:10 Pulse Rate 68 04/07/21 14:23 Respiratory Rate 16 04/07/21 14:23 Blood Pressure 134/69 04/07/21 14:23 Pulse Oximetry 95 04/07/21 14:23 MDM - Back Pain/Injury MDM Narrative: Medical decision making narrative: Patient was able to ambulate around the the room with a walker. Discussed with patient that there is no acute findings. That at this time there is no reason for acute hospital admission. He needs to continue outpatient physical therapy. Follow-up with his primary care provider in 1 to 2 days. Patient stable and discharged Lab Data: Labs: Lab Results 04/07/21 04/07/21 04/07/21 Range/Units 10:28 10:28 12:10 WBC 6.2 (4.0-10.0) 10^3/ uL RBC 3.96 L (4.1-5.3) 10^6/u L Hgb 11.1 L (11.7-16.6) g/dL Hct 36.7 L (42.0-52.0) % MCV 92.7 (80-94) fL MCH 28.0 (28.0-34.0) pg MCHC 30.2 (30.0-36.0) g/dL RDW 16.5 H (12.1-15.1) % Plt Count 253 (130-400) 10^3/c mm MPV 9.7 (7.4-10.4) fL Neut % (Auto) 70.8 % Lymph % (Auto) 15.0 % Perkins % (Auto) 11.2 % Eos % (Auto) 1.6 % Baso % (Auto) 1.1 % Neut # (Auto) 4.35 (1.8-7.7) 10^3/u L Lymph # (Auto) 0.9 (0.8-4.8) 10^3/u L Perkins # (Auto) 0.7 (0.2-0.9) 10^3/u L Eos # (Auto) 0.1 (0.0-0.8) 10^3/u L Baso # (Auto) 0.1 (0.0-0.1) 10^3/u L Nucleated RBC % (a uto) 0 % Nucleated RBCs # 0.0 /100WBC Sodium 134 L (136-145) mmol/L Potassium 4.0 (3.5-5.1) mmol/L Chloride 95 L (98-107) mmol/L Carbon Dioxide 31 H (22-29) mmol/L Anion Gap 12.0 (5-19) BUN 21 (8-23) mg/dL Creatinine 0.9 (0.7-1.2) mg/dL GFR Calculation Not Reportable Glucose 126 H (65-115) mg/dL Calculated Osmolal ity 283 L (285-295) mOsm/k g Calcium 8.7 (8.5-10.5) mg/dL Total Bilirubin 1.0 (0.15-1.2) mg/dL AST 12 (0-40) U/L ALT 6 (0-41) U/L Alkaline Phosphata se 97 (40-130) IU/L Total Protein 7.3 (6.6-8.7) g/dL Albumin 3.7 (3.5-5.2) g/dL Globulin 3.6 (1.3-4.6) g/dL Urine Color Yellow (Yellow) Urine Appearance Clear (CLEAR) Urine pH 7 (5-7) Ur Specific Gravit y 1.010 (1.005-1.030) Urine Protein Neg (Negative) Urine Glucose (UA) Norm (Normal) Urine Ketones Negative (Negative) Urine Blood Neg (Negative) Urine Nitrate Negative (Negative) Urine Bilirubin Neg (Negative) Urine Urobilinogen 4 H (Negative) mg/dL Ur Leukocyte Kyara ase Negative (Negative) Discharge Plan Discharge Patient Disposition: Home Clinical Impression: Weakness Condition: Stable Prescriptions: No Action carvedilol 12.5 mg tablet 12.5 mg PO BID RF: 0 Hold Instructions: Resume on 03/23/21. allopurinol 300 mg tablet 300 mg PO QAM RF: 0 hydrochlorothiazide 25 mg tablet 25 mg PO QAM RF: 0 Hold Instructions: Resume on 03/23/21. metformin 500 mg tablet 500 mg PO BID RF: 0 Eliquis 5 mg tablet 5 mg PO BID RF: 0 Hold Instructions: Resume on 03/18/21. benazepril 20 mg tablet 20 mg PO QAM RF: 0 Hold Instructions: Resume on 03/23/21. tamsulosin 0.4 mg Capsule 0.4 mg PO BEDTIME RF: 0 rosuvastatin 20 mg Tablet 20 mg PO BEDTIME RF: 0 gabapentin 100 mg Capsule 100 mg PO BID RF: 0 acetaminophen 500 mg tablet 1,000 mg PO Q8H PRN (Reason: Pain) RF: 0 olanzapine 5 mg Tablet,Disintegrating 5 mg PO BEDTIME Qty: 30 RF: 0 ferrous fum-vit C-vit B12-FA 460-60-0.01-1 mg capsule 1 cap PO DAILY Qty: 30 RF: 0 Discharge Orders: Discharge ED (Routine); Ordered 04/07/21 Ordered By: Omar Mcarthur Referrals: Roxanne Serrato APN [Primary Care Provider] - Discharge Diet: Usual diet Discharge Activity: Increase activity as tolerated and Use walker/crutches as instructed Patient Instructions: Opioid Safety, Weakness (Generalized) Activity Restrictions/Additional Instructions: Follow-up with your primary care provider in 1 to 2 days for continuation of care Coding Level of Care Code ED Career Placement Services Counselor for Chg Fwd Exam Detailed
--- NOTE | 2021-04-07 10:19 | ECG_ITS ---
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 Measurements Intervals [place] Rate: 70 P: ME: QRS: 247 QRSD: 153 T: 27 QT: 437 QTc: 474 Interpretive Statements ELECTRONIC VENTRICULAR PACEMAKER ABNORMAL RHYTHM ECG INTERPRETATION BASED ON A DEFAULT AGE OF 40 YEARS Compared to ECG 03/14/2021 15:41:30 No significant changes Electronically Signed On 04-07-2021 20:45:31 CDT by Lanie Beavers M.D. [email or web address]
[2021-04-07 10:40] LABS: Basophils # 0.1 10^3/uL (0.0-0.1); Basophils % 1.1 %; Eosinophils # 0.1 10^3/uL (0.0-0.8); Eosinophils % 1.6 %; Hematocrit 36.7 % (42.0-52.0); Hemoglobin 11.1 g/dL (11.7-16.6); Lymphocytes # 0.9 10^3/uL (0.8-4.8); Mean Corpuscular HGB Conc 30.2 g/dL (30.0-36.0); Mean Corpuscular Volume 92.7 fL (80-94); Mean Platelet Volume 9.7 fL (7.4-10.4); Monocytes # 0.7 10^3/uL (0.2-0.9); Monocytes % 11.2 %; Neutrophils # 4.35 10^3/uL (1.8-7.7); Neutrophils % 70.8 %; Nucleated Red Blood Cells % 0 %; Platelet Count 253 10^3/cmm (130-400); Red Blood Count 3.96 10^6/uL (4.1-5.3); Red Cell Distribution Width 16.5 % (12.1-15.1); White Blood Count 6.2 10^3/uL (4.0-10.0)
[2021-04-07 10:58] LABS: Alanine Aminotransferase 6 U/L (0-41); Albumin Level 3.7 g/dL (3.5-5.2); Alkaline Phosphatase 97 IU/L (40-130); Aspartate Amino Transferase 12 U/L (0-40); Blood Urea Nitrogen 21 mg/dL (8-23); Calcium 8.7 mg/dL (8.5-10.5); Carbon Dioxide 31 mmol/L (22-29); Chloride 95 mmol/L (98-107); Globulin 3.6 g/dL (1.3-4.6); Glucose 126 mg/dL (65-115); Osmolality Calculated 283 mOsm/kg (285-295); Sodium 134 mmol/L (136-145); Total Protein 7.3 g/dL (6.6-8.7)
[2021-04-07] MEDS: sodium chloride 0.9% 500 ML IV (11:20)
[2021-04-07 12:20] LABS: Add Urine Microscopic? NO; Charge for UA Resulting for Rev
[2021-04-07 12:24] LABS: Urine Appearance Clear (CLEAR); Urine Color Yellow (Yellow)
[2021-04-07 12:25] LABS: Bilirubin Urine Neg (Negative); Blood Urine Neg (Negative); Glucose Urine UA Norm (Normal); Ketones Urine Negative (Negative); Leukocyte Esterase Urine Negative (Negative); Nitrate Urine Negative (Negative); Protein Urine Neg (Negative); Urobilinogen Urine 4 mg/dL (Negative); pH Urine 7 (5-7)
[2021-04-07 12:35] VITALS: BP 122/83; PULSE 80; RESP 16; O2SAT 97
--- NOTE | 2021-04-07 13:26 | PC.NURSE ---
Per aircraft launch and recovery technician Koki, pt able to ambulate with walker around room without difficulty.
[2021-04-07 14:23] VITALS: BP 134/69; PULSE 68; RESP 16; O2SAT 95
== END 2021-04-07 14:25 | disposition home or self-care (01) ==
PROVIDERS: Emergency Provider Student in an Organized Health Care Education/Training Program; PCP Nurse Practitioner Family
DX: R53.1 Weakness (principal); Z79.01 Long term (current) use of anticoagulants; I48.91 Unspecified atrial fibrillation; E11.9 Type 2 diabetes mellitus without complications; E78.5 Hyperlipidemia, unspecified; I10 Essential (primary) hypertension; Z95.0 Presence of cardiac pacemaker; Z96.653 Presence of artificial knee joint, bilateral
CPT/HCPCS: 71045; 80053; 81003; 85025; 93005; 96360; 99283; J7040

== ENCOUNTER 2021-04-10 07:23 | Emergency (ER) | payer MEDICARE, BC, SELFPAY ==
[2021-04-10] VITALS (7 sets, daily range): BP systolic 117–142; BP diastolic 61–88; PULSE 60–85; RESP 18–20; TEMP 36.6; O2SAT 95–97; BMI 33.4
--- NOTE | 2021-04-10 07:44 | ED_ITS ---
HPI - Weakness General: Chief complaint: Weakness Stated complaint: trouble with legs, unable to walk Time Seen by Provider: 04/10/21 07:39 History of Present Illness: HPI Narrative: 75-year-old male presents with generalized bilateral lower leg weakness. Patient was seen by me for similar issues 3 days ago. That time patient was able ambulate without difficulty and discharged with a walker. Family reports that he did really good the next day. And then yesterday evening he started getting weak again with difficulty ambulating and standing up. Patient had left knee replacement approximately 1 month ago. He has had difficulty on and off since then. Patient has no acute fevers chills or other systemic complaints. Associated symptoms: Denies chest pain, chills, fever(s), nausea or vomiting Review of Systems Const: Denies: fever(s) or chills ENMT: Denies: throat pain Card: Denies: chest pain or palpitations Resp: Denies: dyspnea or productive cough GI: Denies: abdominal pain, nausea or vomiting : Denies: flank pain or difficulty urinating Musc: Reports: back pain (Chronic); Denies: neck pain Skin/Breast: Denies: rash or pruritus Neuro: Reports: weakness in extremities (Bilateral lower legs) PFSH ED PFSH: Medical History Atrial fibrillation BPH (benign prostatic hyperplasia) Chronic back pain Chronic neck and back pain Diabetes Gout History of back pain History of hematuria History of spinal stenosis Hyperlipidemia Hypertension Surgical History History of back surgery History of right knee joint replacement Dr. Morales in [place] History of thumb surgery Pacemaker Dr. Austin Gonzales [phone] Status post left knee replacement Family History Other CAD (coronary artery disease) Diabetes Social History Smoking and tobacco status: never smoked Alcohol intake: never Marital status: Physical Exam Const: COMMON NORMALS: no acute distress, average body habitus and patient oriented x3 GENERAL APPEARANCE: cooperative Resp: COMMON NORMALS: normal respiratory effort and clear to auscultation bilaterally AUSCULTATION: clear to auscultation bilaterally Cardio: COMMON NORMALS: regular rate and regular rhythm RATE: regular rate RHYTHM: regular rhythm GI: COMMON NORMALS: Soft to palpation and non-tender PALPATION: Yes Soft to palpation Extremity: COMMON NORMALS: full ROM Neuro: COMMON NORMALS: patient oriented x3, moves all extremities and no focal motor deficits Psych: COMMON NORMALS: mental status grossly normal APPEARANCE: Yes grossly normal Skin: NARRATIVE SKIN EXAM: Left knee incision well-healing, clean dry and intact Course Vital Signs: Vital signs: Vital Signs Temperature 97.8 F 04/10/21 07:27 Pulse Rate 63 04/10/21 07:39 Respiratory Rate 18 04/10/21 07:39 Blood Pressure 124/64 04/10/21 07:39 Pulse Oximetry 95 04/10/21 07:39 MDM - Weakness MDM Narrative: Medical decision making narrative: Patient with no acute findings on CT lumbar. Patient with some very mild clonus. Some occasional incontinence. Patient requested transfer to [facility] where there back surgeon is for further evaluation. Patient's weakness is significantly different from when he was seen here 3 days ago by me. At that time he can easily ambulate with no neurologic findings. Today patient is much weaker and required assist to stand. Patient accepted by Dr. Roy at [facility] for further evaluation Lab Data: Attestation: I reviewed the patient's lab results. Labs: Lab Results 04/10/21 04/10/21 04/10/21 Range/Units 07:55 07:55 08:20 WBC 7.8 (4.0-10.0) 10^3/ uL RBC 3.76 L (4.1-5.3) 10^6/u L Hgb 10.6 L (11.7-16.6) g/dL Hct 34.1 L (42.0-52.0) % MCV 90.7 (80-94) fL MCH 28.2 (28.0-34.0) pg MCHC 31.1 (30.0-36.0) g/dL RDW 16.4 H (12.1-15.1) % Plt Count 227 (130-400) 10^3/c mm MPV 9.5 (7.4-10.4) fL Neut % (Auto) 74.9 % Lymph % (Auto) 9.7 % Darke % (Auto) 13.8 % Eos % (Auto) 0.3 % Baso % (Auto) 0.8 % Neut # (Auto) 5.82 (1.8-7.7) 10^3/u L Lymph # (Auto) 0.8 (0.8-4.8) 10^3/u L Darke # (Auto) 1.1 H (0.2-0.9) 10^3/u L Eos # (Auto) 0.0 (0.0-0.8) 10^3/u L Baso # (Auto) 0.1 (0.0-0.1) 10^3/u L Nucleated RBC % (a uto) 0 % Nucleated RBCs # 0.0 /100WBC Sodium 133 L (136-145) mmol/L Potassium 3.8 (3.5-5.1) mmol/L Chloride 94 L (98-107) mmol/L Carbon Dioxide 29 (22-29) mmol/L Anion Gap 13.8 (5-19) BUN 25 H (8-23) mg/dL Creatinine 0.9 (0.7-1.2) mg/dL GFR Calculation Not Reportable Glucose 128 H (65-115) mg/dL Calculated Osmolal ity 282 L (285-295) mOsm/k g Calcium 8.6 (8.5-10.5) mg/dL Magnesium 1.9 (1.7-2.3) mg/dL Total Bilirubin 1.1 (0.15-1.2) mg/dL AST 14 (0-40) U/L ALT 10 (0-41) U/L Alkaline Phosphata se 88 (40-130) IU/L Total Protein 7.2 (6.6-8.7) g/dL Albumin 3.2 L (3.5-5.2) g/dL Globulin 4.0 (1.3-4.6) g/dL Urine Color Yellow (Yellow) Urine Appearance Clear (CLEAR) Urine pH 5 (5-7) Ur Specific Gravit y 1.020 (1.005-1.030) Urine Protein Neg (Negative) Urine Glucose (UA) Norm (Normal) Urine Ketones Negative (Negative) Urine Blood 2+ H (Negative) Urine Nitrate Negative (Negative) Urine Bilirubin 1+ H (Negative) Urine Urobilinogen 1 H (Negative) mg/dL Ur Leukocyte Kyara ase Negative (Negative) Urine RBC 0-4 H (0-2) /hpf Urine WBC Rare (0-5) /hpf Ur Squamous Epith Cells None (0-5) /hpf Amorphous Sediment Not Reportable Urine Bacteria Trace (NONE) /hpf Imaging Data^: Other CT: Radiologist's impression: 1. Multilevel degenerative arthritic change and degenerative disc narrowing. 2. Multilevel disc osteophyte protrusion along with facet joint arthritis causing canal and foraminal stenosis. Discharge Plan Discharge Patient Disposition: Xfer Short-Term Hosp Clinical Impression: Weakness, Spinal stenosis of lumbar region at multiple levels Condition: Stable Discharge Orders: Discharge ED (Routine); Ordered 04/10/21 Ordered By: Omar Mcarthur Referrals: Roxanne Serrato APN [Primary Care Provider] - Discharge Diet: Usual diet Discharge Activity: Increase activity as tolerated Activity Restrictions/Additional Instructions: Is present to the lobby at [facility] to see Dr. Roy as directed by him Phone #[phone] or [phone] you can ask for Aga. Coding Level of Care Code ED Body Hanger for Chg Fwd Exam Detailed
[2021-04-10 08:06] LABS: Basophils # 0.1 10^3/uL (0.0-0.1); Basophils % 0.8 %; Eosinophils % 0.3 %; Hematocrit 34.1 % (42.0-52.0); Hemoglobin 10.6 g/dL (11.7-16.6); Lymphocytes # 0.8 10^3/uL (0.8-4.8); Lymphocytes % 9.7 %; Mean Corpuscular HGB Conc 31.1 g/dL (30.0-36.0); Mean Corpuscular Hemoglobin 28.2 pg (28.0-34.0); Mean Corpuscular Volume 90.7 fL (80-94); Mean Platelet Volume 9.5 fL (7.4-10.4); Monocytes # 1.1 10^3/uL (0.2-0.9); Monocytes % 13.8 %; Neutrophils # 5.82 10^3/uL (1.8-7.7); Neutrophils % 74.9 %; Nucleated Red Blood Cells % 0 %; Platelet Count 227 10^3/cmm (130-400); Red Blood Count 3.76 10^6/uL (4.1-5.3); Red Cell Distribution Width 16.4 % (12.1-15.1); White Blood Count 7.8 10^3/uL (4.0-10.0)
[2021-04-10] MEDS: lactated ringers 500 ML 999 ML IV (08:21)
[2021-04-10 08:29] LABS: Alanine Aminotransferase 10 U/L (0-41); Albumin Level 3.2 g/dL (3.5-5.2); Alkaline Phosphatase 88 IU/L (40-130); Anion Gap 13.8 (5-19); Aspartate Amino Transferase 14 U/L (0-40); Blood Urea Nitrogen 25 mg/dL (8-23); Calcium 8.6 mg/dL (8.5-10.5); Carbon Dioxide 29 mmol/L (22-29); Chloride 94 mmol/L (98-107); Glucose 128 mg/dL (65-115); Magnesium 1.9 mg/dL (1.7-2.3); Osmolality Calculated 282 mOsm/kg (285-295); Potassium 3.8 mmol/L (3.5-5.1); Sodium 133 mmol/L (136-145); Total Bilirubin 1.1 mg/dL (0.15-1.2); Total Protein 7.2 g/dL (6.6-8.7)
[2021-04-10 08:51] LABS: Add Urine Microscopic? YES; Bilirubin Urine 1+ (Negative); Blood Urine 2+ (Negative); Glucose Urine UA Norm (Normal); Ketones Urine Negative (Negative); Leukocyte Esterase Urine Negative (Negative); Nitrate Urine Negative (Negative); Protein Urine Neg (Negative); Urine Appearance Clear (CLEAR); Urine Color Yellow (Yellow); Urobilinogen Urine 1 mg/dL (Negative); pH Urine 5 (5-7)
[2021-04-10 08:52] LABS: Add Urine Culture? No; Bacteria Urine TRACE /hpf; RBC Urine 0-4 /hpf (0-2); WBC Urine RARE /hpf (0-5)
--- NOTE | 2021-04-10 12:36 | CT_ITS ---
WS: [id number] CT of the lumbar spine, additional two-dimensional coronal and sagittal imaging was obtained. 04/10/20 21 Clinical Data: hx stenosis, fall Comparison: CT lumbar spine, 05/17/2012 DLP: 2624.[address] scans at [facility] use at least one of these dose optimization techniques: automat ed exposure control; mA and/or kV adjustment per patient size (includes targeted exams where dose is matched to clinical indication); or iterative reconstruction. Findings: There is degenerative disc narrowing at all levels from L1-L2 through L5-S1. There is osteo arthritic spurring of all the lumbar vertebral bodies. No compression fractures are seen. There is a dextroscoliosis. The transverse processes and SI joints are unremarkable. T12-L1: There is a disc osteophyte complex causing mild canal stenosis along with facet joint arthrit is causing canal stenosis. L1-L2: There is a disc osteophyte complex causing mild canal stenosis along with facet joint arthriti s causing foraminal stenosis. L2-L3: The disc osteophyte complex causes marked central canal stenosis and there is moderate facet j oint arthritis causing canal stenosis. L3-L4: There is a disc osteophyte complex and moderate facet joint arthritis causing canal and forami nal stenosis. L4-L5: There is a disc osteophyte complex and moderate facet joint arthritis causing canal and forami nal stenosis. L5-S1: There is a disc osteophyte complex and facet joint arthritis causing canal and foraminal steno sis. CT/CT lumbar spine wo con* [id number] Impression: 1. Multilevel degenerative arthritic change and degenerative disc narrowing. 2. Multilevel disc osteophyte protrusion along with facet joint arthritis causi ng canal and foraminal stenosis.
--- NOTE | 2021-04-10 12:58 | PM.CONSULT ---
Providers/Reason For Consult Consulting Physican/Specialty*: Woody Chavis, Hospitalist Reason for Consult*: Weakness Requesting Physcian: ED Primary Care Provider: Roxanne Serrato APN History of Present Illness History of Present Illness Rommel Bhatia is a 75 year old male who presented to the emergency department April 07 as well as today April 10 with similar complaints of weakness. The emergency department physician contacted me as the patient is weak enough he could not ambulate. In visiting with the patient as well as his they report significant weakness, limited to his lower extremities, progressively worsening since knee replacement that was done on March 11. They are satisfied regarding the knee replacement, and that both legs seem to be about equally weak. When trying to ambulate they can go out from underneath him. He has had at least 3 falls since the knee replacement. He reports no head injury during these falls. He has had decreased sensation in both legs, going on prior to the knee replacement but worsening following and certainly worse in the last week. He has had some periods of incontinence of urine. Typically he is continent of stool. and patient are both concerned regarding his lower back, as he had similar symptoms with history of severe lumbar stenosis requiring decompression 5 years ago. and patient both believe he is not stable to be discharged home secondary to his significant weakness, therefore I was consulted by the emergency department physician. He has had no fever. He has been vaccinated for Covid with the last injection being given January 23. He has had no chest pain or shortness of breath. He has a chronic history of dragging his right foot slightly since his surgery 5 years ago. His chronic pain in his back has not changed much in the last several weeks. Review of Systems General: Reports: 10 or more systems reviewed and unremarkable except in HPI and below Const: Denies: fever(s) Eyes: Denies: change in vision ENMT: Denies: throat pain Card: Denies: chest pain Resp: Denies: dyspnea GI: Denies: abdominal pain : Reports: urinary incontinence; Denies: flank pain Musc: Reports: muscle weakness; Denies: neck pain Skin/Breast: Denies: rash Neuro: Reports: weakness in extremities, sensory changes, difficulty walking and frequent falls; Denies: headache(s) or dizziness Psych: Denies: anxiety or depression Endo: Denies: polyuria Vaughn/Lymph: Denies: easy bruising All/Imm: Denies: urticaria Meds/Allergies Home Medications and Allergies Home Medications Medication Instructions Recorded Confirmed Last Taken Type allopurinol 300 mg tablet 300 mg PO QAM 12/08/19 03/26/21 03/14/21 07:00 History carvedilol 12.5 mg tablet 12.5 mg PO BID 12/08/19 03/26/21 03/14/21 07:00 History hydrochlorothiazide 25 mg tablet 25 mg PO QAM 12/08/19 03/26/21 03/14/21 07:00 History metformin 500 mg tablet 500 mg PO BID 12/08/19 03/26/21 03/14/21 07:00 History benazepril 20 mg PO QAM 03/10/20 03/26/21 03/14/21 07:00 History apixaban 5 mg tablet 5 mg PO BID 02/13/21 03/26/21 03/13/21 07:00 History rosuvastatin 20 mg PO BEDTIME 02/26/21 03/26/21 03/13/21 History tamsulosin 0.4 mg PO BEDTIME 02/26/21 03/26/21 03/13/21 History acetaminophen 1,000 mg PO Q8H PRN 03/14/21 03/26/21 03/13/21 History gabapentin 100 mg PO BID 03/14/21 03/26/21 03/14/21 07:00 History ferrous fum-vit C-vit B12-FA 1 cap PO DAILY #30 cap 03/16/21 03/26/21 Unknown Rx olanzapine 5 mg PO BEDTIME #30 tab 03/16/21 03/26/21 Unknown Rx Allergies Allergy/AdvReac Type Severity Reaction Status Date / Time niacin Allergy Unknown Verified 04/07/21 10:16 tetanus toxoid, adsorbed Allergy Unknown Verified 04/07/21 10:16 codeine AdvReac Unknown Verified 04/07/21 10:16 morphine AdvReac Unknown Verified 04/07/21 10:16 PFSH Acute PFSH: Medical History (Updated 04/10/21 @ 13:15 by Woody Kirby MD) Atrial fibrillation BPH (benign prostatic hyperplasia) Chronic back pain Chronic neck and back pain Diabetes Gout History of back pain History of hematuria History of spinal stenosis Hyperlipidemia Hypertension Surgical History History of back surgery History of right knee joint replacement Dr. Morales in [place] History of thumb surgery Pacemaker Dr. Austin Gonzales [phone] Status post left knee replacement Family History Other CAD (coronary artery disease) Diabetes Social History Smoking and tobacco status: never smoked Alcohol intake: never Marital status: Vitals/I&O/Wt Last Vital Signs Temp 97.8 F 04/10/21 07:27 Pulse 63 04/10/21 07:39 Resp 18 04/10/21 07:39 BP 124/64 04/10/21 07:39 Pulse Ox 95 04/10/21 07:39 Weight last 48 hrs Weight 99.79 kg Physical Exam Narrative: EXAM NARRATIVE: General exam is a conversant white male who can give his history, but often interjects. HEENT: Pupils equally round. Oropharynx clear. Neck is supple no lymphadenopathy or thyromegaly Cardiovascular regular rate and rhythm, 2/6 systolic murmur. Pacemaker noted left chest. Lungs clear no wheezing or crackles Abdomen is soft, positive bowel sounds. No obvious organomegaly exam is deferred Extremities no cyanosis or clubbing. Trace edema is present. Left knee appears to be healing well from previous knee replacement. Cap refill intact. Neurologic: Diminished sensation to light touch both legs. Proprioception intact. Sacral paresthesia right side. Clonus present both lower extremities. Strength diminished lower extremities equal 4/5. Data Other Data: Other data: Calcium is 8.6, magnesium 1.9, LFTs normal, albumin 3.2, urinalysis with 0-4 reds and rare whites Chest x-ray negative Previous CT head March 14 no acute, previous CTA demonstrated 30% stenosis both vertebrals, focal to near total occlusion left vertebral artery at C5-C6 secondary to facet joint osteoarthritis EKG demonstrates a regular ventricularly paced rhythm. A&P Assessment and plan (1) Lower extremity weakness: This patient has been complaining of lower extremity weakness for the last several weeks, progressively worsening. He has had some periods of incontinence of urine. He has reduced sensation to his lower extremities. Clonus is present and no previous exam regarding this is documented. There is concern of sacral paresthesia on the right. He has had a history of significant spinal stenosis requiring decompression 5 years ago and reports symptoms are very similar concern for lower spinal compression/cauda equina is present.. Secondary to his recent falls I believe imaging of his lower spine is indicated to make sure no fracture or obvious malignancy is present. If this is not present, MRI would be indicated. We do not perform MRI in patients with pacemakers(even if compliant) currently. There is also no spine surgeon food and beverage controller at this time. Secondary to these reasons he will likely need to be transferred to an institution that provides these services. Status: Acute (2) Fall: Would obtain CT scan of the LS spine Status: Acute (3) Atrial fibrillation: Currently on anticoagulation, which should be taken into account prior to any potential surgical intervention. Status: Acute Additional A&P Information Multiple other medical problems as outlined in his past medical history. Thank you for this consultation Consult Attestations Medical Necessity Statement: Not applicable Time Spent in Patient Care: Greater than 35 minutes Coding Level of Care Code Acute Block Sawyer for Deo Hanson Diagnoses Lower extremity weakness R29.898 Fall W19.XXXA Atrial fibrillation I48.91
--- NOTE | 2021-04-10 14:14 | DCPLANNER ---
manager printing was asked to help find placement for patient for rehab services, for physical therapy. manager printing spoke with patient and his , was told that they would like to go to [facility] to a swing bed. manager printing called [facility], spoke with Doretha Chen, , was told that with patients insurance, would require patient to have a 3 midnight stay in hospital. Patient has not been in hospital for 3 midnights in a row. It was suggested that patient try out patient therapy with [facility]. manager printing spoke with the outpatient therapy department to see what they would need for a referral for therapy services. manager printing spoke with patient and explained that patient would not be able to go to the swing bed at this time due to not being in the hospital for 3 midnights. manager printing talked to patient about out patient therapy, patient stated that they did not physical therapy, but wanted to find out what was going on. manager printing spoke with ED physician about patient going to swing bed.
== END 2021-04-10 16:21 | disposition short-term general hospital (02) ==
PROVIDERS: Emergency Provider Student in an Organized Health Care Education/Training Program; PCP Nurse Practitioner Family
DX: R53.1 Weakness (principal); M48.061 Spinal stenosis, lumbar region without neurogenic claudication; I48.91 Unspecified atrial fibrillation; E11.9 Type 2 diabetes mellitus without complications; E78.5 Hyperlipidemia, unspecified; I10 Essential (primary) hypertension
CPT/HCPCS: 72131; 80053; 81001; 83735; 85025; 96360; 99285

== ENCOUNTER 2022-12-27 10:28 | Emergency (ER) | payer MEDICARE, BC, SELFPAY ==
[2022-12-27 10:48] VITALS: BP 166/88; PULSE 89; RESP 20; TEMP 36.8; O2SAT 100; BMI 34.9
--- NOTE | 2022-12-27 11:04 | ED_ITS ---
HPI - Dental/Oral General: Chief complaint: Dental/Oral Stated complaint: Tooth pulled and still bleeding Time Seen by Provider: 12/27/22 10:54 Source: patient Mode of arrival: ambulatory History of Present Illness: 77-year-old male presents emergency room with complaint of bleeding from the gums where he had a dental extraction he was on Eliquis he stopped it for 2 days then resume today. Moderate amount of swelling. He says the bleeding is actually decreased. Teeth map: 1. Onset (ago): day(s) Duration: intermittent Severity: mild Relieving factors: nothing Exacerbating factors: nothing Context: other (Dental extraction) Associated symptoms: Reports gum swelling; Denies ear or mastoid pain, fever(s), odynophagia, sore throat or tongue swelling Review of Systems Const: Denies: fever(s) ENMT: Reports: swelling of lips/tongue, oral sores and bleeding gums; Denies: throat pain, odynophagia, ear or mastoid pain, nasal discharge or nasal congestion Card: Denies: chest pain, edema, dyspnea on exertion or orthopnea Resp: Denies: dyspnea, productive cough or non-productive cough GI: Denies: abdominal pain, nausea, vomiting, hematemesis, coffee ground emesis, diarrhea, constipation, bloating, hematochezia or melena : Denies: flank pain, dysuria, urinary frequency or urinary urgency Skin/Breast: Denies: rash or pruritus All/Imm: Denies: tongue swelling PFSH ED PFSH: Medical History Atrial fibrillation BPH (benign prostatic hyperplasia) Chronic back pain Chronic neck and back pain Diabetes Gout History of back pain History of hematuria History of spinal stenosis Hyperlipidemia Hypertension Surgical History History of back surgery History of right knee joint replacement Dr. Morales in [place] History of thumb surgery Pacemaker Dr. Austin Gonzales [phone] Status post left knee replacement Family History Other CAD (coronary artery disease) Diabetes Social History Smoking and tobacco status: never smoked Alcohol intake: never Marital status: Physical Exam 2 Const: GENERAL APPEARANCE: cooperative and comfortable ORIENTATION/CONSCIOUSNESS: Yes awake, Yes oriented to person, Yes oriented to place and Yes oriented to time HENMT: COMMON NORMALS: normocephalic, atraumatic and hearing grossly normal bilaterally HEAD & SCALP: normocephalic and atraumatic OTHER: Already mild gum swelling at the first molar. When I first looked at it looked as if it was a packing it was gum soaked. Closer examination is large amount of hematoma and swelling and blood there is no identifiable cavity from the dental extraction. No active bleeding Resp: COMMON NORMALS: normal respiratory effort, No retractions, No use of accessory muscles and clear to auscultation bilaterally AUSCULTATION: clear to auscultation bilaterally Cardio: COMMON NORMALS: regular rate, regular rhythm and No murmurs present (Cardio) RATE: regular rate RHYTHM: regular rhythm Extremity: COMMON NORMALS: normal to inspection, capillary refill normal, no clubbing, cyanosis or edema, no calf tenderness and no pedal edema Neuro: SENSORIUM/ORIENTATION: Yes oriented to person, Yes oriented to place and Yes oriented to time Skin: COMMON NORMALS: no rashes or lesions noted GENERAL SKIN EXAM: no rashes or lesions noted Course Vital Signs: Vital signs: Vital Signs Temperature 98.3 F 12/27/22 10:48 Pulse Rate 60 12/27/22 11:32 Respiratory Rate 20 H 12/27/22 10:48 Blood Pressure 166/88 12/27/22 11:32 Pulse Oximetry 100 12/27/22 11:32 Oxygen Delivery Me thod 12/27/22 11:32 MDM - Dental/Oral Medical Decision Making Small amount of bleeding from the gumline but there is no identifiable cavity from where the tooth was extracted. Using cotton swab applied topical TXA. I had Gelfoam available to pack but there is nothing to [place] afraid to try to extract any clot as a likely worsening bleeding. Patient discharged home the remainder of the TXA was soaked into a gauze pad and asked him to bite down on it gently did direct pressure on the swollen area of the gum follow-up with dentist soon as possible. Medical Records I reviewed the patient's medical records. Lab Data I reviewed the patient's lab results. Discharge Plan Discharge Patient Disposition: Home Clinical Impression: Surgical wound hemorrhage after dental procedure, Atrial fibrillation, On continuous oral anticoagulation Condition: Stable Prescriptions: No Action allopurinol 300 mg tablet 300 mg PO QAM hydrochlorothiazide 25 mg tablet 25 mg PO QAM Hold Instructions: Resume on 03/23/21. metformin 500 mg tablet 500 mg PO BID carbidopa-levodopa 25-100 mg tablet 1 tab PO BID escitalopram oxalate 10 mg tablet 10 mg PO DAILY Eliquis 5 mg tablet 5 mg PO BID Hold Instructions: Resume on 03/18/21. tamsulosin 0.4 mg Capsule 0.4 mg PO BEDTIME rosuvastatin 20 mg Tablet 20 mg PO BEDTIME gabapentin 100 mg Capsule 100 mg PO BID acetaminophen 500 mg tablet 1,000 mg PO Q8H PRN (Reason: Pain) Discharge Orders: Discharge ED (Routine); Ordered 12/27/22 Ordered By: Prakash Bran Referrals: Roxanne Serrato APN [Primary Care Provider] - Patient Instructions: Opioid Safety, Pain Management Activity Restrictions/Additional Instructions: You were seen today for bleeding from the site of the tooth extraction. There is a large hematoma at that site there is no cavity that can be packed at this point. We did not probe the cavity for fear of worsening bleeding. Recommend that you not take your Eliquis until following up with the dentist. We topically applied a medicine to limit bleeding. You can use moist gauze to create duct direct pressure on the area if you have any oozing or further bl eeding. Follow-up with your dentist as soon as you are able. If bleeding resumes and is uncontrollable you can return to the emergency room. Coding Level of Care Code ED Business Communications Instructor for Deo Hanson
[2022-12-27 11:32] VITALS: BP 166/88; PULSE 60; O2SAT 100
[2022-12-27] MEDS: gelatin 12-7 mm Sponge 1 EACH TOPICAL (12:36)
[2022-12-27] MEDS: tranexamic acid 1,000 mg/10mL SDV 1000 MG MUCOUS MEM (12:36)
== END 2022-12-27 12:54 | disposition home or self-care (01) ==
PROVIDERS: Emergency Provider Family Medicine; PCP Nurse Practitioner Family
DX: K91.840 Postprocedural hemorrhage of a digestive system organ or structure following a digestive system procedure (principal); Z98.818 Other dental procedure status; I48.91 Unspecified atrial fibrillation; Z79.01 Long term (current) use of anticoagulants; E11.9 Type 2 diabetes mellitus without complications; I10 Essential (primary) hypertension; E78.5 Hyperlipidemia, unspecified; Z95.0 Presence of cardiac pacemaker
CPT/HCPCS: 99283

== ENCOUNTER 2025-08-09 11:40 | Emergency (ER) | payer MEDICARE, BC, SELFPAY ==
--- OUTSIDE RECORDS SUMMARY | 2024-05-06 05:30 | XMS_ITS ---
Author Organization [facility] Address [address] [place] [address] Care Team Providers Care Office Inspector Name Role Phone Sheldon Rosa Primary Care Provider [phone] Tomer Joy [phone] REASON FOR VISIT 1 YR FU Encounters Encounter Location Date Provider Diagnosis Neurology [place] [facility] [address] [address] 05/06/2024 Tomer Suggs Plan Of Treatment Next Appt Details Provider Name:Nan Rodriguez, 07/09/2026 12:50:00 PM, [address], [id number], Progress Notes * MERCADOANAOB:1945 ( 79 yo M)Acc No.[id number]:05/06/2024 UNLOCKED PROGRESS NOTE Progress Notes Patient: DAGO DOTSON Provider: CAMILLE Mad[place] :1945 A ge:78 Y S ex:Male Date:05/06/2024 Address:[address] [place] [id number] Pcp:Sheldon Rosa Subjective: * Chief Complaints: * 1 . 1 YR FU. * Medical History: Objective: * Vitals: Assessment: Plan: * Treatment: * * * Electronic signature of Dominique CAMILLE Francisco, [id number] on 08/09/2025 at 11:49 AM CDT Sign off status: Pending * Provider: Cristian Suggs, ELECTRO OPTICS ENGINEER Date: 0 05/06/2024 Generated for Mars neff/Carlyle/Natalie on: 0 08/09/2025 11:49 AM CDT
--- OUTSIDE RECORDS SUMMARY | 2025-07-06 10:20 | XMS_ITS ---
Author Organization [facility] Address [address] [place] [address] Care Team Providers Care Web Marketing Manager Name Role Phone Sheldon Rosa Primary Care Provider Michael ROJAS MID LEVEL CLINICIAN, Nan Unavailable [phone] Allergies Allergen (clinical drug ingredient) Drug/Non Drug Allergy documented on EMR Reaction Allergy Type Onset Date Status niacin Niacin Unknown Drug Allergy Active hydrocodone Hydrocodone Unknown Drug Allergy Act bree morphine Morphine Unknown Drug Allergy Active Tetanus Toxoids Unknown Drug Allergy A ctive REASON FOR VISIT 2-3 M FU-HERE PER JULIO Medications Medication SIG (Take, Route, Frequency, Duration) Notes Start Date End Date Status Entacapone 200 MG 1 tablet Orally 4 times daily, to be taken with each dose of Sinemet; Duration: 30 days 03/24/2025 Active Potassium Chloride ER 20 MEQ 1 tablet wi th food Orally Once a day Active Lasix 40 MG 1 tablet Orally Once a day Active predniSONE 5 MG 1 tablet with food or milk Orally Once a day As needed Active Escitalopram Oxalate 10 MG TAKE ONE TABL ET BY MOUTH EVERY DAY; Duration: 90 Active Carbidopa-Levodopa 25-100 MG 2 tablets O rally four times daily 6am,10am,2pm,6pm; Duration: 30 days Active Dorzolamide HCl-Timolol Mal 2-0.5 % Ophthalmic; Duration: 30 Days Not-Taking Amantadine HCl 100 MG 1 tablet in mornin g Orally Once a day; Duration: 30 days Active Gemtesa 75 MG 1 tablet Orally Once a day Active Allopurinol 300 MG 1 tablet Orally Once a day Not-Taking Eliquis 5 MG 1 tab Orally BID Active Tamsulosin HCl 0.4 MG 1 capsule Orally Once a day Active hydroCHLOROthiazide 25 MG 1 tablet in th e morning Orally Once a day Not-Taking metFORMIN HCl 500 MG 1 tablet with a meal Orally BID Active Rosuvastatin Calcium 20 MG 1 tablet Oral ly Once a day Active Gabapentin 100 MG 1 Orally BID Active Encounters Encounter Location Date Provider Diagnosis Neurology [facility] [address] [address] 07/06/2025 Nan Rodriguez PARKINSONS DISEASE G 20 and NEUROLEPTIC-INDUCED PARKINSONISM G21.11 Assessments Encounter Date Diagnosis (ICD Code) Assessment Notes Treatment Notes Treatment Clinical Notes Section Notes 07/06/2025 PARKINSONS DISEASE (ICD-10 - G20) 07/06/2025 NEUROLEPTIC-INDUC ED PARKINSONISM (ICD-10 - G21.11) 07/06/2025 Other Scribed for Nan Rodriguez NP by medical record librarians teacher Carley Justice 04/19/2025 02:50:37 PM CDT. I, Nan Rodriguez NP, have personally reviewed and agree with the information entered by the scribe. Plan Of Treatment Medication Medication Name Sig Start Date Stop Date Notes Carbidopa-Levodopa 25-100 MG 2 tablets O rally four times daily 6am,10am,2pm,6pm; Duration: 30 days Amantadine HCl 100 MG 1 tablet in mornin g Orally Once a day; Duration: 30 days Next Appt Details Follow Up: July 06 late afternoon, Reason: f/u Parkinsons Provider Name:Nan Rodriguez, 07/09/2026 12:50:00 PM, [address] [address], [place], [address], Progress Notes * ANA MERCADOOB:1945 ( 79 yo M)Acc No.[id number]:07/06/2025 UNLOCKED PROGRESS NOTE Progress Notes Patient: ROMMEL DOTSON Provider: Pat Reed NP :1945 A ge:79 Y S ex:Male Date:07/06/2025 Address:[address] [address], [place], [place] [address] Pcp:Sheldon Rosa Subjective: * Chief Complaints: * 1 . 2-3 M FU-HERE PER JULIO. * HPI: H istory of Present Illness: Nan RodriguezBOB MID LEVEL CLINICIAN 04/19/2025 02:50:37 PM CDT > G khloe is a 78-year-old male who returns for follow up of Parkinson's. At last visit, continued carbidopa levodopa 25-100 mg 2 tabs 4 time daily, Lexapro 10 mg daily, gabapentin 100 mg BID, we adjusted his can height two notches to avoid some of the stooping, recommended a sleep study but patient declined. At the beginning of March, Rommel's called in about him having freezing episodes, so we started him on entacapone 200 mg 4 times daily. Today he is accompanied by his . She reports that the entacapone does not seem to be effective, it may have been effective for the first week or so, but they have noticed a decline in his memory that they feel started when he started the entacapone, but overall do not feel that it is effective for his movements any longer. They report that recently he has started experiencing urinary incontinence, they have seen the urologist twice and he has been trialed on a few different medications that have not been effective. He is currently taking a medication that the urologist gave them samples, but she advised that it is expensive, and although he is taking it and it seems to be helping, she is worried about the cost, and she is concerned as he does not have a follow up appointment. He denies any prostate issues. His mentions that he seems to be more stooped, and his wonders if the stooping may be putting pressure on his bladder, and also she notes that he has increased constipation. She states initially when he started experiencing incontinence he would not be able to make it to the toilet, he would leave puddles on his way to the bathroom. His thinks that maybe when he sits up in bed that may be causing him to start to urinate. She mentions that he is now able to make it to the bathroom. She wonders when he should take the remainder of the entacapone. 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 Chari chang reports that he sleeps so-so . She states that it is very difficult for Rommel as he is used to being active. Nan Rodriguez AG NP 05/09/2024 01:03:32 PM > Rommel Mercado is a 78 year old male who presents for follow up of Parkinson's. He is accompanied by his . He is currently on Sinemet, 2 tabs 4 times daily. Rommel reports that he is somewhat bothered by his stooped posture and feels that this may have gotten worse since his last visit. He takes gabapentin for his bilateral lower extremity neuropathy and reports that this works well. His reports that his last hemoglobin A1c was 6.1. They went to see the radio engineer, Dr. Tomas Verma earlier today and reports that there were no changes in his care plan related to that visit. Rommel has had a pacemaker since the and reports that he still has 5 years of battery life on his current pacemaker. . Tomer Suggs 05/12/2023 09:26:07 AM > Rommel returns to clinic in f/u for parkinson's.He is accompanied by his . He note he has no compaints. His reports he is increasingly forgetful, and is having more trouble getting around. He is using a cane. Otherwise he is able to do the things he want's to do. 04/22/2022 Norah Quinn: Mr. Mercado returns for follow up of Parkinsonism. He is currently taking sinemet 2 tablet TID for Parkinsonism. He reports he is doing well over all. He is able to mow the yard and trim the hedges without difficulty. He continues to have some kicking and jerking while asleep, whether it is during a nap during the day or at bedtime. They do not feel that this is bothersome enough to consider additional evaluation or treatment. He does report he has to get up to use the restroom at night, but has no issues getting to the bathroom on time. At this point, he feels his symptoms are well controlled and does not wish for any changes to his medication. HPI 06/26/21 CC: ROMMEL MERCADO is a 75-year-old male who is seen and examined in neurologic evaluation for hospital follow-up. He has a formal patient of Dr. Rosa. He follows with Neurology for parkinsonism. He continues on Sinemet 2 tabs 3 times daily at 7 noon and 5. He continues taking Lexapro with good mood control. Gabapentin 100 twice a day with good neuropathy control. He reports he is doing LSVT therapy with a therapist in his hometown which is helping his back and Parkinson's. His does report that he snores and jerks his legs frequently while sleeping. He is taking Crestor for hyperlipidemia. He has otherwise done well since discharge from inpatient rehab. They have no new acute complaints or concerns. Handwriting sample and Archimedes spiral scanned into chart PMHx: Atrial fibrillation, HTN, HLD, bilateral TKA, pacemaker, lumbar DDD, osteoarthritis, right-hand dominant, mild cognitive impairment, diabetes, anxiety and depression, BPH, neuropathy. Hospitalization summary from 04/10/21-04/19/21, IPR 04/19/21-04/26/21 PMHx of T-spine hematoma with decompression by Dr. Roy remotely, therefore finds himself as the attending. He had a TKA in prior to hospital admission. He had anemia post operatively and was readmitted he had what sounds like an episode of delerium and was started on olanzapine at a hospital in his hometown. He had a resting tremor intermittently in the right hand. He was bradykinetic with hypomimia, and muscle rigidity. 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 He had a positive response his dysarthria improved as well as his tremor. During his admission his confusion gradually improved. He had a stay in our rehab unit from to April 26, 2021, his he was ultimately started on Sinemet and Cogentin was stopped Eliquis was restarted post CT myelogram. Lexapro was initiated for mood.. * Medical History: P ARKINSONISM, AFIB, HTN (HYPERTENSION), HIGH CHOLESTEROL, SKIN CANCER, OSTEOARTHRITIS, DEGENERATIVE DISC DISEASE, LUMBAR. * Surgical History: P acemaker placement , Knee replacement x 2 , Thumb surgery . * Family History: Alzheimer's Disease. * Medications: T aking Carbidopa-Levodopa 25-100 MG Tablet 2 tablets Orally four times daily 6am,10am,2pm,6pm , Taking Amantadine HCl 100 MG Tablet 1 tablet in morning Orally Once a day , Taking Gemtesa 75 MG Tablet 1 tablet Orally Once a day , Taking predniSONE 5 MG Tablet 1 tablet with food or milk Orally Once a day As needed, Taking Escitalopram Oxalate 10 MG Tablet TAKE ONE TABLET BY MOUTH EVERY DAY , Taking Entacapone 200 MG Tablet 1 tablet Orally 4 times daily, to be taken with each dose of Sinemet , Taking Potassium Chloride ER 20 MEQ Tablet Extended Release 1 tablet with food Orally Once a day , Taking Lasix 40 MG Tablet 1 tablet Orally Once a day , Taking Gabapentin 100 MG Capsule 1 Orally BID , Taking Eliquis 5 MG Tablet 1 tab Orally BID , Taking metFORMIN HCl 500 MG Tablet 1 tablet with a meal Orally BID , Taking Rosuvastatin Calcium 20 MG Tablet 1 tablet Orally Once a day , Taking Tamsulosin HCl 0.4 MG Capsule 1 capsule Orally Once a day , Not-Taking hydroCHLOROthiazide 25 MG Tablet 1 tablet in the morning Orally Once a day , Not-Taking Allopurinol 300 MG Tablet 1 tablet Orally Once a day , Not-Taking Dorzolamide HCl-Timolol Mal 2-0.5 % Solution Ophthalmic , Medication List reviewed and reconciled with the patient * Allergies: T etanus Toxoids, Morphine, Hydrocodone, Niacin. Objective: * Vitals: * Examination: N eurologic: Physical Examination G ENERAL: No acute distressMENTAL STATUS: NormalSPEECH: HypophoniaCRANIAL NERVES: Hypomimia. visual mendoza are full on confrontation. Pupils are equally round and reactive to light and 3 mm bilaterally. Extraocular movements are full and intact. No nystagmus is noted. hypomimia, no asymmetry.MOTOR: Generalized weakness throughout, normal bulk, cogwheeling rigidity at the right elbow and slightly at the left elbow. Very slight tremor bilaterally with cyljpw-in-vklf movement.GAIT AND STATION: Mildly cautious and wide-based, en-bloc turn, decreased arm swing with mild shuffle, significant stooping.CARDIOVASCULAR: Prompt capillary refillLUNGS: C symmetrical rise and fall of chest. No cough Review of studies from hospitalization 04/10/21-04/19/21, IPR 04/19/21- 04/26/21Computed tomographic scan of the lumbar spine from [facility] from 04/10/2021 supports degenerative changes to most levels with loss of disc space height water as well some anterior posterior osteophytic spurring as well as some gas phenomenon within the disc. It was potential for midline canal encroachment most pronounced at the L1-2, L2-3, L3-4, and L4-5 levels. There is probable foraminal encroachment at each level though with some suggestion of maintenance of fat planes. There is support for postoperative changes at the T10-11 level on the left at the cephalad margin of the study. Computed tomographic scan of the head without contrast from [facility] from April 10, 2021 supports appropriate distribution of density within the parenchyma. There is mild ventriculomegaly though not necessarily beyond what might be expected for the atrophy present. There is some vascular calcification. There is a small amount of low density within the centrum semiovale bilaterally otherwise nonspecific fashion. Review of complete myelogram and postmyelogram computed tomographic scanning of the spine from 2013 supports multiple levels of degenerative change with extradural encroachment most pronounced in the low thoracic reaches. Laboratory from [facility] demonstrates sodium 133 potassium 3.8 chloride 94 CO2 29 BUN 25 creatinine 0.9 glucose 128. White count 7.8 hemoglobin 10.6 hematocrit 34.1 platelet count [id number]. Urinalysis demonstrates where white cells per high-power field and 0-4 red cells. ASSESSMENT:Secondary and related to prior olanzapine prescription versus unmasking of idiopathic Parkinson's. Given response to Sinemet I am suspicious that he has idiopathic Parkinson's diseaseAtrial fibrillationHTNHLDbilateral TKApacemakerlumbar DDDosteoarthritisright-hand dominantmild cognitive impairmentdiabetesanxiety and depressionBPHneuropathyT-spine hematoma status post decompression 2013 PLAN: - Start amantadine 100 mg 1 tab once daily in the morning.- Continue carbidopa levodopa 25/100 mg 2 tabs, 4 times daily- Continue Lexapro 10 mg daily- Continue gabapentin 100 mg twice daily- Titrate off entacapone 200 mg BID at 6:00 AM and 6:00 PM with carbidopa levodopa until c urrent prescription is finished, then stop- Follow-up July 06 late afternoon, s ooner as needed for new or exacerbation of symptoms. (They live in [place]). Care team:Roxanne Rosa. Assessment: * Assessment: 1. P ARKINSONS DISEASE - G20 (Primary) 2 . N EUROLEPTIC-INDUCED PARKINSONISM - G21.11 Plan: * Treatment: 2. O thers Clinical Notes: Scribed for Nan Rodriguez NP by medical record librarians teacherbernardo Justice04/19/2025 02:50:37 PM CDT. I, Nan Rodriguez NP, have personally reviewed and agree with the information entered by the scribe. * * Follow Up: A ugust late afternoon (Reason: f/u Parkinsons) * * Electronic signature of Anna ROJAS MID LEVEL CLINICIAN, AG MID LEVEL CLINICIAN on 08/09/2025 at 11:50 AM CDT Sign off status: Pending * Provider: Pat Reed NP Date: 07/06/2025 Generated for Mars neff/Carlyle/Natalie on: 0 08/09/2025 11:50 AM CDT History and Physical Notes * HPI (History of Present Illness) Category Sub-Category Detail Notes Category Not es History of Present Illness Nan Rodriguez AG NP 04/19/2025 02:50:37 PM CDT > Rommel is a 78-year-old male who returns for follow up of Parkinson's. At last visit, continued carbidopa levodopa 25-100 mg 2 tabs 4 time daily, Lexapro 10 mg daily, gabapentin 100 mg BID, we adjusted his can height two notches to avoid some of the stooping, recommended a sleep study but patient declined. At the beginning of March, Rommel's called in about him having freezing episodes, so we started him on entacapone 200 mg 4 times daily. Today he is accompanied by his . She reports that the entacapone does not seem to be effective, it may have been effective for the first week or so, but they have noticed a decline in his memory that they feel started when he started the entacapone, but overall do not feel that it is effective for his movements any longer. They report that recently he has started experiencing urinary incontinence, they have seen the urologist twice and he has been trialed on a few different medications that have not been effective. He is currently taking a medication that the urologist gave them samples, but she advised that it is expensive, and although he is taking it and it seems to be helping, she is worried about the cost, and she is concerned as he does not have a follow up appointment. He denies any prostate issues. His mentions that he seems to be more stooped, and his wonders if the stooping may be putting pressure on his bladder, and also she notes that he has increased constipation. She states initially when he started experiencing incontinence he would not be able to make it to the toilet, he would leave puddles on his way to the bathroom. His thinks that maybe when he sits up in bed that may be causing him to start to urinate. She mentions that he is now able to make it to the bathroom. She wonders when he should take the remainder of the entacapone. 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 He reports that he sleeps so-so . She states that it is very difficult for Rommel as he is used to being active. Nan Rodriguez AG NP 05/09/2024 01:03:32 PM > Rommel Mercado is a 78 year old male who presents for follow up of Parkinson's. He is accompanied by his . He is currently on Sinemet, 2 tabs 4 times daily. Rommel reports that he is somewhat bothered by his stooped posture and feels that this may have gotten worse since his last visit. He takes gabapentin for his bilateral lower extremity neuropathy and reports that this works well. His reports that his last hemoglobin A1c was 6.1. They went to see the radio engineer, Dr. Tomas Vrema earlier today and reports that there were no changes in his care plan related to that visit. Rommel has had a pacemaker since the and reports that he still has 5 years of battery life on his current pacemaker. . Tomer Suggs 05/12/2023 09:26:07 AM > Rommel returns to clinic in f/u for parkinson's.He is accompanied by his . He note he has no compaints. His reports he is increasingly forgetful, and is having more trouble getting around. He is using a cane. Otherwise he is able to do the things he want's to do. 04/22/2022 Norah Quinn: Mr. Mercado returns for follow up of Parkinsonism. He is currently taking sinemet 2 tablet TID for Parkinsonism. He reports he is doing well over all. He is able to mow the yard and trim the hedges without difficulty. He continues to have some kicking and jerking while asleep, whether it is during a nap during the day or at bedtime. They do not feel that this is bothersome enough to consider additional evaluation or treatment. He does report he has to get up to use the restroom at night, but has no issues getting to the bathroom on time. At this point, he feels his symptoms are well controlled and does not wish for any changes to his medication. HPI 06/26/21 CC: ROMMEL MERCADO is a 75-year-old male who is seen and examined in neurologic evaluation for hospital follow-up. He has a formal patient of Dr. Rosa. He follows with Neurology for parkinsonism. He continues on Sinemet 2 tabs 3 times daily at 7 noon and 5. He continues taking Lexapro with good mood control. Gabapentin 100 twice a day with good neuropathy control. He reports he is doing LSVT therapy with a therapist in his hometown which is helping his back and Parkinson's. His does report that he snores and jerks his legs frequently while sleeping. He is taking Crestor for hyperlipidemia. He has otherwise done well since discharge from inpatient rehab. They have no new acute complaints or concerns. Handwriting sample and Archimedes spiral scanned into chart PMHx: Atrial fibrillation, HTN, HLD, bilateral TKA, pacemaker, lumbar DDD, osteoarthritis, right-hand dominant, mild cognitive impairment, diabetes, anxiety and depression, BPH, neuropathy. Hospitalization summary from 04/10/21-04/19/21, IPR 04/19/21-04/26/21 PMHx of T-spine hematoma with decompression by Dr. Roy remotely, therefore finds himself as the attending. He had a TKA in prior to hospital admission. He had anemia post operatively and was readmitted he had what sounds like an episode of delerium and was started on olanzapine at a hospital in his hometown. He had a resting tremor intermittently in the right hand. He was bradykinetic with hypomimia, and muscle rigidity. 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 He had a positive response his dysarthria improved as well as his tremor. During his admission his confusion gradually improved. He had a stay in our rehab unit from to April 26, 2021, his he was ultimately started on Sinemet and Cogentin was stopped Eliquis was restarted post CT myelogram. Lexapro was initiated for mood. Examination Category Sub-Category Detail Notes Category Not es Neurologic Physical Examination GENERAL: No acute distressMENTAL STATUS: NormalSPEECH: HypophoniaCRANIAL NERVES: Hypomimia. visual mendoza are full on confrontation. Pupils are equally round and reactive to light and 3 mm bilaterally. Extraocular movements are full and intact. No nystagmus is noted. hypomimia, no asymmetry.MOTOR: Generalized weakness throughout, normal bulk, cogwheeling rigidity at the right elbow and slightly at the left elbow. Very slight tremor bilaterally with hteisw-aq-tuaq movement.GAIT AND STATION: Mildly cautious and wide-based, en-bloc turn, decreased arm swing with mild shuffle, significant stooping.CARDIOVASCULAR: Prompt capillary refillLUNGS: C symmetrical rise and fall of chest. No cough Review of studies from hospitalization 04/10/21-04/19/21, IPR 04/19/21-04/26/21Computed tomographic scan of the lumbar spine from [facility] from 04/10/2021 supports degenerative changes to most levels with loss of disc space height water as well some anterior posterior osteophytic spurring as well as some gas phenomenon within the disc. It was potential for midline canal encroachment most pronounced at the L1-2, L2-3, L3-4, and L4-5 levels. There is probable foraminal encroachment at each level though with some suggestion of maintenance of fat planes. There is support for postoperative changes at the T10-11 level on the left at the cephalad margin of the study. Computed tomographic scan of the head without contrast from [facility] from April 10, 2021 supports appropriate distribution of density within the parenchyma. There is mild ventriculomegaly though not necessarily beyond what might be expected for the atrophy present. There is some vascular calcification. There is a small amount of low density within the centrum semiovale bilaterally otherwise nonspecific fashion. Review of complete myelogram and postmyelogram computed tomographic scanning of the spine from 2013 supports multiple levels of degenerative change with extradural encroachment most pronounced in the low thoracic reaches. Laboratory from [facility] demonstrates sodium 133 potassium 3.8 chloride 94 CO2 29 BUN 25 creatinine 0.9 glucose 128. White count 7.8 hemoglobin 10.6 hematocrit 34.1 platelet count [id number]. Urinalysis demonstrates where white cells per high-power field and 0-4 red cells. ASSESSMENT:Secondary and related to prior olanzapine prescription versus unmasking of idiopathic Parkinson's. Given response to Sinemet I am suspicious that he has idiopathic Parkinson's diseaseAtrial fibrillationHTNHLDbilateral TKApacemakerlumbar DDDosteoarthritisright-hand dominantmild cognitive impairmentdiabetesanxiety and depressionBPHneuropathyT-spine hematoma status post decompression 2013 PLAN: - Start amantadine 100 mg 1 tab once daily in the morning.- Continue carbidopa levodopa 25/100 mg 2 tabs, 4 times daily- Continue Lexapro 10 mg daily- Continue gabapentin 100 mg twice daily- Titrate off entacapone 200 mg BID at 6:00 AM and 6:00 PM with carbidopa levodopa until current prescription is finished, then stop- Follow-up July 06 late afternoon, sooner as needed for new or exacerbation of symptoms. (They live in [place]). Care team:Roxanne Rosa
[2025-08-09 11:43] VITALS: BP 128/72; PULSE 78; TEMP 36.6; O2SAT 95
--- OUTSIDE RECORDS SUMMARY | 2025-08-09 11:50 | XMS_ITS | Patient Health Record ---
Author Organization [facility] Address [address] [facility] [place] [address] Care Team Providers Care Consultants Intern Name Role Phone Roxanne Serrato Primary Care Provider LACY Sorto Unavailable [phone] GIOVANI FOREMAN Unavailable [phone] Allergies Allergen (clinical drug ingredient) Drug/Non Drug Allergy documented on EMR Reaction Allergy Type Onset Date Status hydrocodone Hydrocodone Unknown Drug Allergy Act bree morphine Morphine Unknown Drug Allergy Active niacin Niacin Unknown Drug Allergy Active Tetanus Toxoids Unknown Drug Allergy A ctive Results Component Value Reference Range Notes Urinalysis, Routine Reviewed date:02/14/2025 10:04:10 AM Interpretation: Performing Lab: Notes/Report: Urine-Color yellow Appearance clear Glucose - Bilirubin - Ketones - Specific [place] 1.025 Occult Blood - pH 6.0 Urine Protein - Urobilinogen,Semi-Qn - Nitrite, Urine - WBC Esterase - Urinalysis, Routine Reviewed date:04/04/2025 11:16:12 AM Interpretation: Performing Lab: Notes/Report: Urine-Color yellow Appearance clear Glucose - Bilirubin - Ketones - Specific [place] 1.015 Occult Blood - pH 6.0 Urine Protein - Urobilinogen,Semi-Qn - Nitrite, Urine - WBC Esterase - Reason For Referral No Information Medications Medication SIG (Take, Route, Frequency, Duration) Notes Start Date End Date Status Potassium Chloride 20 MEQ 1 packet with food Orally Once a day Active Gemtesa 75 MG 1 tablet Orally Once a day; Duration: 30 days 04/26/2025 04/21/2026 Active metFORMIN HCl 500 MG 1 tablet with a cristel l Orally Once a day Active hydroCHLOROthiazide 25 MG 1 tablet in th e morning Orally Once a day Active Gemtesa 75 MG 1 tablet Orally Once a day; Duration: 90 days 04/24/2025 04/19/2026 Active Entacapone 200 MG 1 tablet Orally Twic e a day Active Gabapentin 100 MG 1 capsule at bedtime Orally Once a day Active Solifenacin Succinate 5 MG 1 tablet Oral ly Once a day at dinner; Duration: 30 days 02/14/2025 08/13/2025 Active Escitalopram Oxalate 10 MG 1 tablet Oral ly Once a day Active Dorzolamide-Timolol Active Eliquis 5 MG as directed Orally Active Eye Support Active Carbidopa-Levodopa 25-100 MG 1 tablet as needed Orally Two times a Week Active Furosemide 40 MG 1 tablet Orally Once a day As needed Active Allopurinol 100 MG 1 tablet Orally Once a day Active Tamsulosin HCl 0.4 MG 1 capsule Orally Twice a day Active Rosuvastatin Calcium 20 MG 1 tablet Oral ly Once a day Active predniSONE 5 MG 1 tablet with food o r milk Orally Once a day Active Social History Tobacco Use: Social History Observation Description Date Details (start date - stop date) Never Smoker NA - NA Tobacco Control (Standard) Question Answer Notes Tobacco use: Nonsmoker Problems Problem Type SNOMED Code ICD Code Onset Dates Problem Status W/U Status Risk Notes Problem Urge incontinence of urine (82990715) Urge incontinence (N39.41) Active confirmed Problem Benign prostatic hypertrophy with outflow obstruction (102493474) BPH loc w urin obs/LUTS (N40.1) Active confirmed Problem Parkinson's disease with dyskinesia, unspecified whether manifestations fluctuate (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) Active confirmed Vital Signs Heart Rate 61 /min 04/04/2025 Height-cm 172.72 cm 04/04/2025 Weight-kg 95.26 kg 04/04/2025 Height 68 in 04/04/2025 Weight 210 lbs 04/04/2025 BMI 31.93 kg/m2 04/04/2025 Procedures Procedure Date Ordered Date Performed Result Body Sit e Bladder Scan 02/14/2025 02/14/2025 PVR 0ML Bladder Scan 04/04/2025 04/04/2025 N/A Encounters Encounter Location Date Provider Diagnosis [facility] [address] [place] [address] 02/14/2025 LACY DORANTES Urge incontinence N39.41 ; Urinary frequency R35.0 ; Nocturia R35.1 ; BPH loc w urin obs/LUTS N40.1 ; Parkinson's disease with dyskinesia, unspecified whether manifestations fluctuate G20.B1 and Impaired mobility Z74.09 [facility] [address] [facility] [place] [address] 04/04/2025 LACY DORANTES Urge incontinence N39.41 ; Urinary frequency R35.0 ; Nocturia R35.1 ; BPH loc w urin obs/LUTS N40.1 ; Parkinson's disease with dyskinesia, unspecified whether manifestations fluctuate G20.B1 ; Impaired mobility Z74.09 and Incomplete bladder emptying R33.9 [facility] [address] [place] [address] 01/12/2025 GIOVANI KELLEN [facility] [address] [place] [address] 03/22/2025 LACY DORANTES [facility] [address] [place] [address] 04/24/2025 LACY DORANTES [facility] [address] [place] [address] 04/26/2025 LACY LINDAANO [facility] [address] [place] [address] 05/08/2025 LACY DORANTES [facility] [address] [place] [address] 05/10/2025 LACY DORANTES Assessments Encounter Date Diagnosis (ICD Code) Assessment Notes Treatment Notes Treatment Clinical Notes Section Notes 02/14/2025 Urge incontinence (ICD-10 - N39.41) 02/14/2025 Urinary frequency (ICD-10 - R35.0) 04/04/2025 Urge incontinence (ICD-10 - N39.41) 04/04/2025 Urinary frequency (ICD-10 - R35.0) 04/04/2025 Nocturia (ICD-10 - R35.1) 02/14/2025 Nocturia (ICD-10 - R35.1) 02/14/2025 BPH loc w urin obs/LUTS (ICD-10 - N40.1) 04/04/2025 BPH loc w urin obs/LUTS (ICD-10 - N40.1) 04/04/2025 Parkinson's disease with dyskinesia, unspecified whether manifestations fluctuate (ICD-10 - G20.B1) 02/14/2025 Parkinson's disease with dyskinesia, unspecified whether manifestations fluctuate (ICD-10 - G20.B1) 02/14/2025 Impaired mobility (ICD-10 - Z74.09) 04/04/2025 Impaired mobility (ICD-10 - Z74.09) 04/04/2025 Incomplete bladder emptying (ICD-10 - R33.9) 02/14/2025 Other UA clear, PVR 0 ml. He has bother with urinary frequency, nocturia and urge incontinence worse at night. Discussed importance of increased water intake, avoiding bladder irritants, cutting back fluids after dinner and keeping constipation controlled. Handout given. I will trial him on Vesicare 5mg to take at dinner. Administration and s/e profile reviewed. He will RTC in 6-8 weeks with UA/PVR, or PRN sooner. All questions that were asked were answered. Patient satisfied with plan of care. 04/04/2025 Other UA clear, but P VR increased to 240ml. STOP Toviaz. Trial Gemtesa. Samples given. Adminstration and s/e profile reviewed. to call in 2-3 weeks to let me know if medication improved patient symptoms. If not, recommend cystoscopy for further evaluation. Plan Of Treatment Next Appt Details Provider Name:LACY DORANTES, 1 11:00:00 AM, [address] [place], [address], Insurance Providers Payer Name Payer Address Payer Phone Subscriber Number Group Number Insured Name Patient Relationship to Insured Coverage Start Date Coverage End Date [place] [address] [employer] [id number] [phone] [id number] Rommel Mercado Self - patient is the insured [facility] [address] [place], [place] [id number] Rommel Mercado Self - patient is the insured Medical (General) History Medical History History ICD Code urinary incontinence Osteoarthritis depression diabetes heart disease/a fib hyperlipidemia hypertension parkensins Surgical History Surgery Date(Month/Year) Pacemaker insertion 1992 Left thumb repair 1979 Right knee replacement 2018 left knee replacement 2020 back surgery 2014 right cataract removal 05/2022 left cataract removal 07/14
--- OUTSIDE RECORDS SUMMARY | 2025-08-09 11:50 | XMS_ITS | Patient Health Record ---
Author Organization [facility] Address [address] [place] [address] Care Team Providers Care Odd Jobs Day Worker Name Role Phone Roxanne Serrato Primary Care Provider [phone] ROXANNE SERRATO Unavailable Unavailable Allergies Allergen (clinical drug ingredient) Drug/Non Drug Allergy documented on EMR Reaction Allergy Type Onset Date Status Hydrocodone Bitartrate Unknown Drug Allergy Active morphine Morphine Sulfate Unknown Drug Allergy Active Niacin-50 Unknown Drug Allergy Active Results Component Value Reference Range Flag [place] A [address] Reviewed date:12/29/2024 03:09:42 PM Interpretation: Performing Lab: Notes/Report: Strep Screen A negative CBC w\ Auto Diff [id number] Reviewed date:10/10/2024 07:49:01 AM Interpretation: Performing Lab: Notes/Report: Diagnosis Description: Essential (primary) hypertension WBC 5.8 4.5-11.0 X10'3 RBC 4.30 4.50-5.90 X10'6 LOW Hgb 12.4 13.5-17.5 G/DL LOW Hct 40.5 41.0-53.0 % LOW MCV 94.2 80.0-100.0 FL MCH 28.8 27.0-31.0 PG MCHC 30.6 31.0-37.0 G/DL LOW Platelet 174 150-400 X10'3 RDW-SD 52.3 35.0-49.0 FL HI RDW-CV 14.9 12.2-15.6 % MPV 11.4 9.2-12.0 FL Neutro Auto% 67.7 40.0-70.0 % Lymph Auto% 18.6 22.0-44.0 % LOW [place] Auto% 10.0 3.0-7.0 % HI Eos Auto% 2.6 2.0-4.0 % Baso Auto% 0.9 0.0-1.0 % Imm Gran% .2 .0-.4 % Neutro Abs 3.94 .80-7.70 Absolute Neutrophil Count 3940 NA Lymph Abs 1.08 .10-4.10 [place] Abs .58 .20-1.00 Eos Abs .15 .00-.40 Baso Abs .05 .00-.20 Imm Gran Abs .01 .00-.10 NRBC# .00 .00-.20 NRBC% .00 .00-.20 /100 intact WBC's CBC w\ Auto Diff [id number] Reviewed date:04/06/2025 09:29:06 AM Interpretation: Performing Lab: Notes/Report: Diagnosis Description: Chronic fatigue, unspecified WBC 6.5 4.5-11.0 X10'3 RBC 4.31 4.50-5.90 X10'6 LOW Hgb 12.2 13.5-17.5 G/DL LOW Hct 40.1 41.0-53.0 % LOW MCV 93.0 80.0-100.0 FL MCH 28.3 27.0-31.0 PG MCHC 30.4 31.0-37.0 G/DL LOW Platelet 160 150-400 X10'3 RDW-SD 54.5 35.0-49.0 FL HI RDW-CV 15.9 12.2-15.6 % HI MPV 12.7 9.2-12.0 FL HI Neutro Auto% 74.4 40.0-70.0 % HI Lymph Auto% 14.6 22.0-44.0 % LOW [place] Auto% 8.4 3.0-7.0 % HI Eos Auto% 1.5 2.0-4.0 % LOW Baso Auto% 0.5 0.0-1.0 % Imm Gran% .6 .0-.4 % HI Neutro Abs 4.81 .80-7.70 Absolute Neutrophil Count 4810 NA Lymph Abs .94 .10-4.10 [place] Abs .54 .20-1.00 Eos Abs .10 .00-.40 Baso Abs .03 .00-.20 Imm Gran Abs .04 .00-.10 NRBC# .00 .00-.20 NRBC% .00 .00-.20 /100 intact WBC's Comprehensive Metabolic Pane l (CMP) 49577 Reviewed date:10/10/2024 07:48:05 AM Interpretation: Performing Lab: Notes/Report: Diagnosis Description: Essential (primary) hypertension Glucose Serum 103 71-110 MG/DL Testing p gino at [facility], [address] [place] [address] [place] [address]. CLIA ID#: [id number] BUN 21 7-21 MG/DL Creat .89 .57-1.17 MG/DL P-qsasbm-e-benzoquino ne imine (NAPQI) is a metabolite of acetaminophen, NAPQI concentrations of apparoximately 10 mg/L correlation to toxic levels of acetaminophen demonstrates a greater than or equil to 10% change in results. NAPQI concentrations greater than this may lead to falsely depressed results for patient samples. Use of this assay is not recommended for patients undergoing treatment with phenindione, due to the potential for falsely depressed results. GFR 86.5 NA Calculation pe rformed from GFR calculator provided by the [employer]. Glomerular Filtration rate(GRF) is the best overall index of kidney function. Normal GFR varies according to age,sex, body size, and declines with age. The [employer] recommends using the CKD-EPI Creatinine Equation(2020) to estimate GFR. BUN/Creat Ratio 23.6 12.0-20.0 % HI Total Protein 6.4 5.8-8.0 G/DL Albumin 4.4 3.2-4.8 G/DL Globulin 2.0 2.3-3.5 G/DL LOW Alb/Glob 2.2 0.8-2.2 Calcium 9.5 8.7-10.4 MG/DL Sodium 140 136-145 MMOL/L Potassium 3.8 3.5-5.1 MMOL/L Chloride 100 98-107 MMOL/L CO2 33.0 20.0-31.0 MMOL/L HI Anion Gap 11 5-15 Alk Phos 72 46-116 Bili Total 1.1 .3-1.2 MG/DL Use of this assay is not recommended for patients undergoing treatment with eltrombopag due to the potential for falsely elevated results. AST/SGOT 16 15-37 UNIT/L ALT/SGPT <7 12-78 UNIT/L LOW Osmo Serum,Calculated 293 280-300 MOSM/KG Ferritin 05832 Reviewed date:04/03/2025 07:36:02 AM Interpretation: Performing Lab: Notes/Report: Diagnosis Description: Chronic fatigue, unspecified Ferritin 83 8-388 NG/ML Hemoglobin A1c 14752 Reviewed date:11/09/2024 03:40:05 PM Interpretation: Performing Lab: Notes/Report: Diagnosis Description: Type 2 diabetes mellitus without complications Hgb A1c 6.0 3.8-6.4 % Interpretation Of Hgb A1c: 4.5-6.2 % nondiabetics. >7.0 % diabetics. EAG 126 NA Estimated Aver age Glucose(EAG). Iron Level 36235 Reviewed date:04/06/2025 09:28:33 AM Interpretation: Performing Lab: Notes/Report: Diagnosis Description: Chronic fatigue, unspecified Iron 42 65-175 MCG/DL LOW Per Iron as say instruction for Use(IFU), patients treated with metal-binding drugs (e.g.deferoxamine) may have depressed iron values as chelated iron may not properly react in the iron assay. Testing was performed with this assay method. Lipid Panel Reflex DLDL 8006 1, 39313 Reviewed date:11/09/2024 03:40:23 PM Interpretation: Performing Lab: Notes/Report: Diagnosis Description: Mixed hyperlipidemia Trig 131 NA Classification Guidelines:Triglycerid es Adults: >20yrs Desirable <150 Borderline High 150-199 High 200-499 Very high >=500 Children: Male 0-4 yr 22-99 5-9 yr 30-101 10-14 yr 32-125 15-19 yr 37-148 Children: Female 0-4 yr 34-112 5-9 yr 32-105 10-14 yr 37-131 15-19 yr 39-132 Chol 96 <=200 MG/DL HDL 40 30-72 MG/DL Reference Ranges:HDL Male: 5-9y 38-75 10-14y 37-74 15-19y 30-63 >=20y 40-59 Female: 5-9y 36-73 10-14y 37-70 15-19y 35-74 >=20y 40-59 CH/HDL 2.4 0.0-4.9 RATIO LDL 29 0-130 MG/DL LDL result is inaccurate , if Trig is >400 mg/dl. See DLDL result. Vitamin B12 (B) 41949 Reviewed date:04/04/2025 04:47:02 PM Interpretation: Performing Lab: Notes/Report: Diagnosis Description: Chronic fatigue, unspecified ImwagvsI65 237 211-911 pg/mL Influenza A/B PCR-- 73257 Reviewed date:12/29/2024 03:09:20 PM Interpretation: Performing Lab: Notes/Report: Influenza B PCR negative Influenza A PCR negative CT Head w/o Contrast-10221 Reviewed date:08/07/2025 06:08:37 AM Interpretation: Performing Lab: Notes/Report: See Below For Report Original Report Addendum: Read See Below For Report Read See Below For Report PSA Medicare Screening--G010 3 Reviewed date:01/10/2025 12:28:34 PM Interpretation: Performing Lab: Notes/Report: Diagnosis Description: Encounter for screening for malignant neoplasm of prostate PSA 3.59 .00-4.00 NG/ML PSA concen trations, regardless of the value, should not be interpreted as definitive evidence for the presence or absence of prostate cancer. Urinalysis--81365 Reviewed date:12/29/2024 03:06:16 PM Interpretation: Performing Lab: Notes/Report: Specific gravity UA 1.015 Urine Nitrite negative Color UA yellow Urine Blood negative Clarity UA clear Urine pH 6.0 Urine Glucose negative Urine Leukocyte negative Urine Protein negative Urine Bilirubin negative Urinalysis--47449 Reviewed date:08/30/2024 07:21:50 AM Interpretation: Performing Lab: Notes/Report: Specific gravity UA 1.020 Urine Nitrite ositive Color UA yellow Urine Blood 2+ Clarity UA clear Urine pH 6.0 Urine Glucose negative Urine Leukocyte negatuve Urine Protein negative Urine Bilirubin negative Urine Ketone negative Urobilinogen negative Reason For Referral Reason elevated psa Diagnosis 1 Elevated PSA (R97.20 ) Referral Organization [facility] Referring Provider First Name Roxanne Referring Provider Last Name [facility] Referring Provider Speciality Nurse Prac titioner Referred Provider TERRANCE MEJIA Referred Provider Specialty Urology General Vanessa Read 01/10 12:27:20 PM >faxed Referral Priority Routine Reason decreased mobility a nd endurance Diagnosis 1 Decreased mobility a nd endurance (Z74.09) Referral Organization [facility] Referring Provider First Name Roxanne Referring Provider Last Name Ama Referring Provider Speciality Nurse Prac titioner Referred Provider [facility] [place] Referral Priority Routine Medications Medication SIG (Take, Route, Frequency, Duration) Notes Start Date End Date Status Tamsulosin HCl 0.4 MG Capsule TAKE ONE CAPSULE BY MOUTH TWICE DAILY; Duration: 30 Active metFORMIN HCl 500 MG Tablet 1 tablet wit h a meal Orally twice a day Active Gabapentin 100 MG Capsule TAKE 2 CAPSULE S BY MOUTH TWICE DAILY; Duration: 30 Active Rosuvastatin Calcium 20 MG Tablet TAKE ONE TABLET BY MOUTH EVERY DAY; Duration: 90 Active Escitalopram Oxalate 10 MG Tablet TAKE ONE TABLET BY MOUTH EVERY DAY; Duration: 90 Active predniSONE 5 MG Tablet TAKE 1 TABLET(S) BY MOUTH DAILY NEEDED; Duration: 30 Active Klor-Con M20 20 MEQ Tablet Extended Release 1 tablet with food Orally Once a day Active Gemtesa 75 MG Tablet 1 tablet Orally Onc e a day Active Dorzolamide HCl-Timolol Mal 2-0.5 % Solution 1 drop into affected eye Ophthalmic Twice a day Active Entacapone 200 MG Tablet 1 tablet Orally Twice a day Active Carbidopa-Levodopa 25-100 MG Tablet 2 tablets Orally Three times a day Active Eliquis 5 MG Tablet BID Orally Active Fluticasone Propionate 50 MCG/ACT Suspension 1 spray in each nostril Nasally Once a day; Duration: 30 day(s) 02/18/2023 Active Immunizations Vaccine Route Administration Date Status Commbernardo nts Flucelvax IM Intramuscular 08/31/2023 Administered ndc-70 [id number] [phone] Patient tolerated well. Flucelvax Quadrivalent Pres Free IM Intramuscular 08/27/2020 Administered Flucelvax Quadrivalent Pres Free IM Intramuscular 09/05/2021 Administered Flucelvax Quadrivalent Pres Free IM Intramuscular 09/24/2022 Administered [id number]- 0 3 Flucelvax Trivalent, Syringe 0.5 mL, PF IM Intramuscular 09/13/2024 Administered Patient tolerated well. Social History Tobacco Use: Social History Observation Description Date Details (start date - stop date) Former Smoker NA - NA Social History Depression Screening Social Info Question Answer Notes PHQ-9 Little interest or pleasure in doing thin gs Not at all Feeling down, depressed, or hopeless Not at all Trouble falling or staying asleep, or sleeping t oo much Not at all Feeling tired or having little energy Not at all Poor appetite or overeating Not at all Feeling bad about yourself, or that you are a failure, or have let yourself or your family down Not at all Trouble concentrating on thi ngs, such as reading the newspaper or watching television Not at all Moving or speaking so slowly that other people could have noticed. Or the opposite ? being so fidgety or restless that you have been moving around a lot more than usual Not at all Thoughts that you would be b kathy off , or of hurting yourself in some way Not at all Total Score 0 Drugs/Alcohol: Social Info Question Answer Notes Alcohol Screen (Audit-C) Did you have a drink containing alcohol in the past year? No Points 0 Interpretation Negative Comprehensive Health Assessm ent Social Info Question Answer Notes *Social Determinants of Health Has lack of transportation kept you from medical appointments, meetings, work or from getting things needed for daily living? No Recently, have you worried t hat your food would run out before you got money to buy more? No Do you feel physically and emotionally safe wher e you currently live? Yes Are you worried about losing your housing? No Household: Social Info Question Answer Notes Household Marital status: Tobacco Use: Social Info Question Answer Notes xTobacco Use/Smoking Are you a former smoker How long has it been since you last smoked? > 10 years Additional Findings: Tobacco User Cigar smoker Tobacco use other than smoking: Are you an other tobac co user? No Additional Details Category Social Info Options Details Drugs/Alcohol: Do you smoke marijuana? De nies Section Notes: 01/29/21 01/29/21 01/29/21 01/29/21 01/29/21 01/29/21 01/29/21 01/29/21 09/24/22 PHQ9 01/29/21 09/24/22 PHQ9 01/29/21 09/24/22 PHQ9 01/29/21 09/24/22 PHQ9 01/29/21 09/24/22 PHQ9 01/29/21 09/24/22 PHQ9 01/29/21 09/24/22 PHQ9 09/30/23 PHQ9 01/29/21 09/24/22 PHQ9 09/30/23 PHQ9 01/29/21 09/24/22 PHQ9 09/30/23 PHQ9 01/29/21 09/24/22 PHQ9 09/30/23 PHQ9 10/06/24 PHQ9 01/29/21 09/24/22 PHQ9 09/30/23 PHQ9 10/06/24 PHQ9 01/29/21 09/24/22 PHQ9 01/29/21 09/24/22 PHQ9 09/30/23 PHQ9 10/06/24 PHQ9 01/29/21 09/24/22 PHQ9 09/30/23 PHQ9 01/29/21 09/24/22 PHQ9 01/29/21 09/24/22 PHQ9 Problems Problem Type SNOMED Code ICD Code Onset Dates Problem Status W/U Status Risk Notes Problem Type II diabetes mellitus without complication (044502015) Type 2 diabetes mellitus without complications (E11.9) Active confirmed Problem Mixed hyperlipidemia (497686354) Mixed hyperlipidemia (E78.2) Active confirmed Problem Chronic pain (21768460) Other chronic pain (G89.29) Active confirmed Problem Sciatica (72775892) Lumbago with sciatica, right side (M54.41) Active confirmed Problem Sciatica (06365096) Lumbago with sciatica, left side (M54.42) Active confirmed Problem Lower urinary tract symptoms due to benign prostatic hypertrophy (99358563635578) Benign prostatic hyperplasia with lower urinary tract symptoms (N40.1) Active confirmed Problem Type II diabetes mellitus without complication (055037428) Type 2 diabetes mellitus without complication, without long-term current use of insulin (E11.9) Active confirmed Problem Neuropathy (481214931) Neuropathy (G62.9) Active confirmed Problem Chronic fatigue syndrome (53337438) Chronic fatigue (R53.82) Active confirmed Problem Arthritis (4997627) Arthritis (M19.90) Active confirmed Problem Annual wellness visit (841080552655292) Wellness examination (Z00.00) Active confirmed Problem Essential hypertension (87756916) Hypertension, unspecified type (I10) Active confirmed Problem Sinusitis (29882876) Sinusitis (J32.9) Active confirmed Problem Hypertension (79022624) HTN (hypertension) (I10) Active confirmed Problem Constipation (78717721) Constipation (K59.00) Active confirmed Problem Neck pain (55486675) Cervical pain (neck) (M54.2) Active confirmed Problem Chronic pain (38135393) Chronic pain (G89.29) Active confirmed Problem Artificial knee joint present (609561648339) Status post 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) Active confirmed Problem Lumbar radiculopathy (983189005) Chronic lumbar radiculopathy (M54.16) Active confirmed Problem Atherosclerotic heart disease of [place] coronary artery without angina pectoris (413694939329341) CVD (cardiovascular disease) (I25.10) Active confirmed Problem Neuropathic arthropathy (04417992) Neuropathic arthropathy (M14.60) Active confirmed Vital Signs Heart Rate 100 /min 04/06/2025 Temperature 98.1 degrees Fahrenheit 04/06/2025 Respiratory Rate 20 /min 04/06/2025 Blood pressure diastolic 76 mm Hg 04/06/2025 Oximetry 95 % 04/06/2025 Height-cm 175.26 cm 04/06/2025 Weight-kg 92.53 kg 04/06/2025 Height 69 in 04/06/2025 Blood pressure systolic 128 mm Hg 04/06/2025 Weight 204 lbs 04/06/2025 BMI 30.12 kg/m2 04/06/2025 Encounters Encounter Location Date Provider Diagnosis [facility] [address] [place] [address] 08/25/2024 Roxanne Serrato UTI (urinary tract infection) N39.0 [facility] [address] [place] [address] 09/13/2024 Roxanne Serrato Encounter for administration of vaccine Z23 and Encounter for immunization Z23 [facility] [address] [place] [address], [place] [address] 10/06/2024 Roxanne Serrato Type 2 diabetes mellitus without complications E11.9 ; Encounter for Medicare annual wellness exam Z00.00 ; Hypertension, unspecified type I10 ; Mixed hyperlipidemia E78.2 and Constipation K59.00 [facility] [address] [place] [address] 11/07/2024 Roxanne Serrato Multiple joint pain M25.50 and Chronic lumbar radiculopathy M54.16 [facility] [address] [place] [address] 12/29/2024 Roxanne Serrato Sinusitis J32.9 ; Urinary frequency R35.0 ; Body aches R52 ; Screening PSA (prostate specific antigen) Z12.5 and Chronic lumbar radiculopathy M54.16 [facility] [address] [place] [address] 03/31/2025 Roxanne Serrato Chronic fatigue R53. 82 [facility] [address] [place] [address] 04/06/2025 Roxanne Serrato Acute otitis media, right H66.91 ; Cervical pain (neck) M54.2 and Screening for colon cancer Z12.11 [facility] [address] [place] [address] 01/02/2025 Roxanne Serrato [facility] [address] [place] [address] 01/09/2025 Roxanne Serrato [facility] [address] [place] [address] 01/10/2025 Roxanne Serrato Elevated PSA R97.20 [facility] [address] [place] [address] 03/06/2025 Roxanne Serrato Decreased mobility a nd endurance Z74.09 [facility] [address] [place] [address] 03/30/2025 Roxanne Serrato Chronic fatigue R53. 82 [facility] [address] [place] [address] 04/04/2025 Roxanne Serrato Vitamin B12 deficien cy E53.8 Assessments Encounter Date Diagnosis (ICD Code) Assessment Notes Treatment Notes Treatment Clinical Notes Section Notes 08/25/2024 UTI (urinary tract infection) (ICD-10 - N39.0) Rocephin injection given. Increase water intake, RTC with any concerns. 09/13/2024 Encounter for administration of vaccine (ICD-10 - Z23) 10/06/2024 Type 2 diabetes mellitus without complications (ICD-10 - E11.9) 10/06/2024 Encounter for Medicare annual wellness exam (ICD-10 - Z00.00) Return in one year for your annual wellness visit. 11/07/2024 Multiple joint pain (ICD-10 - M25.50) 11/07/2024 Chronic lumbar radiculopathy (ICD-10 - M54.16) Toradol and steroid injections given. RTC with any concerns. 12/29/2024 Sinusitis (ICD-10 - J32.9) Steroid injection given. Increase fluids, take medication as directed. RTC if no improvement with treatment. 12/29/2024 Urinary frequency (ICD-10 - R35.0) 01/10/2025 Elevated PSA (ICD-10 - R97.20) 03/06/2025 Decreased mobility and endurance (ICD-10 - Z74.09) 03/30/2025 Chronic fatigue (ICD-10 - R53.82) 03/31/2025 Chronic fatigue (ICD-10 - R53.82) 04/04/2025 Vitamin B12 deficiency (ICD-10 - E53.8) 04/06/2025 Acute otitis media, right (ICD-10 - H66.91) Rocephin injection given. 04/06/2025 Cervical pain (neck) (ICD-10 - M54.2) Toradol and steroid injections given. 04/06/2025 Screening for colon cancer (ICD-10 - Z12.11) 12/29/2024 Body aches (ICD-10 - R52) Toradol injection given. 10/06/2024 Hypertension, unspecified type (ICD-10 - I10) 09/13/2024 Encounter for immunization (ICD-10 - Z23) Immunization supplied by [employer]. 10/06/2024 Mixed hyperlipidemia (ICD-10 - E78.2) 12/29/2024 Screening PSA (prostate specific antigen) (ICD-10 - Z12.5) 12/29/2024 Chronic lumbar radiculopathy (ICD-10 - M54.16) 10/06/2024 Constipation (ICD-10 - K59.00) 09/13/2024 Other Give Flu vaccine as directed per provider 10/06/2024 Other Venipuncture performed. Right arm. One attempt. Pt tolerated well, bleeding controlled with light dressing.Vanessa Grayson [employer]LO[employer]FFER 03/31/2025 Other Labs drawn: Iron, Ferritin, CBC, and Vit B12 Venipuncture: Performed by: Daniel IRVIN Attempts: x1 Location: RAC Needle gauge: 22g Patient tolerated well. Plan Of Treatment Pending Test Test Name Order Date Cologuard 04/06/2025 Insurance Providers Payer Name Payer Address Payer Phone Subscriber Number Group Number Insured Name Patient Relationship to Insured Coverage Start Date Coverage End Date [place] [address] [place] [id number] Rommel Bhatia Self - patient is the insured [employer] [place] [employer] [address] [place] [address] [phone] [id number] Rommel Bhatia Self - patient is the insured Medications Administered Medication Instructions Date of Administration Dosage Notes DEPO-Medrol 09/23/2021 40 mg DEPO-Medrol 06/21/2024 40 mg [id number] 3-01 Patient tolerated well. DEPO-Medrol 11/07/2024 40 mg [id number] 3-01 Patient tolerated well. DEPO-Medrol 12/29/2024 40 mg [id number] 3-01 Patient tolerated well. DEPO-Medrol 04/06/2025 40 mg [id number] 3-01 Patient tolerated well. dexAMETHasone 05/20/2022 8 mg dexAMETHasone 09/23/2021 4 mg dexAMETHasone 01/28/2022 8 mg dexAMETHasone 10/15/2022 8 mg [address]- 30 dexAMETHasone 02/11/2023 8 mg [id number]-64604-4 423-00 Patient tolerated well. dexAMETHasone 04/16/2023 8 mg [id number]-99018-5 423-00 Patient tolerated well. dexAMETHasone 06/21/2024 4 mg [id number] 23-00 Patient tolerated well. dexAMETHasone 11/07/2024 4 mg [id number]-40513-0 165-02 Patient tolerated well. dexAMETHasone 12/29/2024 4 mg [id number] 423-00 Patient tolerated well. dexAMETHasone 04/06/2025 4 mg [id number]-15833-3 423-00 Patient tolerated well. Ketorolac Tromethamine 01/28/2022 60 mg Ketorolac Tromethamine 05/20/2022 60 mg Ketorolac Tromethamine 10/15/2022 60 mg nd [id number] Ketorolac Tromethamine 02/11/2023 60 mg nd [id number] Patient tolerated well. Ketorolac Tromethamine 04/16/2023 60 mg nd [id number] Patient tolerated well. Ketorolac Tromethamine 04/29/2023 60 mg ND [id number] Patient tolerated well. Ketorolac Tromethamine 10/20/2023 60 mg nd [id number] Patient tolerated well. Ketorolac Tromethamine 06/21/2024 60 mg nd [id number] Patient tolerated well. Ketorolac Tromethamine 11/07/2024 60 mg nd [id number] Patient tolerated well. Ketorolac Tromethamine 12/29/2024 60 mg nd [id number] Patient tolerated well. Ketorolac Tromethamine 04/06/2025 60 mg nd [id number] Patient tolerated well. Rocephin 10/20/2023 1 g [id number] -21 Patient tolerated well. Rocephin 08/25/2024 1 g [id number] -11 Patient tolerated well. Rocephin 04/06/2025 1 g [id number] -11 Patient tolerated well. zzDexamethasone 04/24/2020 1 mg zzDexamethasone 08/27/2020 8 mg zzDexamethasone 10/17/2020 8 mg zzDexamethasone 12/13/2020 8 mg ZZToradol 60mg/2ml 04/24/2020 60 mg ZZToradol 60mg/2ml 08/27/2020 60 mg ZZToradol 60mg/2ml 10/17/2020 60 mg ZZToradol 60mg/2ml 12/13/2020 60 mg ZZToradol 60mg/2ml 01/29/2021 60 mg ZZToradol 60mg/2ml 03/22/2021 60 mg Medical (General) History Medical History History ICD Code diabetes hypertension gout hyperlipidemia Surgical History Surgery Date(Month/Year) knee replacement-right back sugery left hand surgery pacemaker placement 09/21/2018
--- OUTSIDE RECORDS SUMMARY | 2025-08-09 11:50 | XMS_ITS | Patient Health Record ---
Author Organization [facility] Address [address] [place] [address] Care Team Providers Care Adobe Block Maker Name Role Phone Sheldon Rosa Primary Care Provider Michael [facility] [employer], Nan Unavailable [phone] Allergies Allergen (clinical drug ingredient) Drug/Non Drug Allergy documented on EMR Reaction Allergy Type Onset Date Status niacin Niacin Unknown Drug Allergy Active hydrocodone Hydrocodone Unknown Drug Allergy Act bree morphine Morphine Unknown Drug Allergy Active Tetanus Toxoids Unknown Drug Allergy A ctive Reason For Referral No Information Medications Medication SIG (Take, Route, Frequency, Duration) Notes Start Date End Date Status Carbidopa-Levodopa 25-100 MG 2 tablets O rally four times daily 6am,10am,2pm,6pm; Duration: 30 days Active Amantadine HCl 100 MG 1 tablet Orally twice a day; Duration: 30 days Active Gemtesa 75 MG 1 tablet Orally Once a day Active hydroCHLOROthiazide 25 MG 1 tablet in th e morning Orally Once a day Active Tamsulosin HCl 0.4 MG 1 capsule Orally Once a day Active Rosuvastatin Calcium 20 MG 1 tablet Oral ly Once a day Active Eye Health Formula A ctive metFORMIN HCl 500 MG 1 tablet with a meal Orally BID Active Eliquis 5 MG 1 tab Orally BID Active Gabapentin 100 MG 1 Orally BID Active Lasix 40 MG 1 tablet Orally Once a day Active Potassium Chloride ER 20 MEQ 1 tablet wi th food Orally Once a day Active Entacapone 200 MG 1 tablet Orally 4 times daily, to be taken with each dose of Sinemet; Duration: 30 days 03/24/2025 Not-Taking Escitalopram Oxalate 10 MG TAKE ONE TABL ET BY MOUTH EVERY DAY; Duration: 90 Active Dorzolamide HCl-Timolol Mal 2-0.5 % Ophthalmic; Duration: 30 Days Active predniSONE 5 MG 1 tablet with food or milk Orally Once a day As needed Active Allopurinol 300 MG 1 tablet Orally Once a day Not-Taking Social History Tobacco Use: Social History Observation Description Date Details (start date - stop date) Never Smoker NA - NA Household Question Answer Notes Marital status: Level of education: finished college Tobacco Use/Smoking Question Answer Notes Are you a: never smoker Problems Problem Type SNOMED Code ICD Code Onset Dates Problem Status W/U Status Risk Notes Problem 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 Problem Parkinsons disease (08187250) PARKINSONS DISEASE (G20) Active confirmed Vital Signs Heart Rate 89 /min 07/07/2025 Blood pressure diastolic 82 mm Hg 07/07/2025 Oximetry 95 % 07/07/2025 Weight-kg 89.36 kg 07/07/2025 Height 68 in 07/07/2025 Blood pressure systolic 130 mm Hg 07/07/2025 Weight 197 lbs 07/07/2025 BMI 29.95 kg/m2 07/07/2025 Encounters Encounter Location Date Provider Diagnosis Neurology [address] [id number] 08/07/[address] [address] 03/20/[address] [address] 05/09/[address] [address] 04/19/2025 [facility] PARKINSONS DISEASE G 20 and NEUROLEPTIC-INDUCED PARKINSONISM G21.[address] [address] 07/07/2025 [facility] PARKINSONS DISEASE G 20 and NEUROLEPTIC-INDUCED PARKINSONISM G21.11 Assessments Encounter Date Diagnosis (ICD Code) Assessment Notes Treatment Notes Treatment Clinical Notes Section Notes 04/19/2025 PARKINSONS DISEASE (ICD-10 - G20) 07/07/2025 PARKINSONS DISEASE (ICD-10 - G20) - Increase amantadine 100 mg 1 tab in morning and adding 1 tab in the evening- Continue carbidopa levodopa 25/100 mg 2 tabs, 4 times daily- Continue Lexapro 10 mg daily- Continue gabapentin 100 mg twice daily- Increased falls in the night when getting out of bed - We discussed signs and symptoms of orthostatic hypotension and the need to rise slowly from a seated or lying position should dizziness occur- Follow-up 1 year for Parkinson's, sooner as needed for new or exacerbation of symptoms. (They live in [place]). 07/07/2025 NEUROLEPTIC-GILLIAN LOBITO PARKINSONISM (ICD-10 - G21.11) 04/19/2025 NEUROLEPTIC-GILLIAN LOBITO PARKINSONISM (ICD-10 - G21.11) 07/06/2025 Other Scribed for Nan Rodriguez NP by biomedical engineering directormichele Justice 04/19/2025 02:50:37 PM CDT. Nan Pagan NP, have personally reviewed and agree with the information entered by the scribe. 04/19/2025 Other Scribed for Nan Rodriguez NP by biomedical engineering directorcj Justice 04/19/2025 02:50:37 PM CDT. Nan Pagan NP, have personally reviewed and agree with the information entered by the scribe. 07/07/2025 Other Scribed for Nan Rodriguez NP by biomedical engineering directormichele Justice 07/07/2025 09:46:47 AM CDT. Nan Pagan NP, have personally reviewed and agree with the information entered by the scribe. Plan Of Treatment Next Appt Details Provider Name:Nan Rodriguez, 07/09/2026 12:50:00 PM, [address] [facility], [address], [address], Insurance Providers Payer Name Payer Address Payer Phone Subscriber Number Group Number Insured Name Patient Relationship to Insured Coverage Start Date Coverage End Date [employer] MEDICARE PART B [address] [address] [place] [phone] [id number] DAGO MERCADO Self - patient is the insured [facility] ACCESS [employer]ADITIONAL [address] [place] [phone] [id number] [id number] MERCADO Self - patient is the insured 0 Medical (General) History Medical History History ICD Code PARKINSONISM G20 AFIB I48.91 HTN (HYPERTENSION) I10 HIGH CHOLESTEROL E78.00 SKIN CANCER C44.90 OSTEOARTHRITIS M19.90 DEGENERATIVE DISC DISEASE, LUMBAR M51.36 Surgical History Surgery Date(Month/Year) Pacemaker placement Knee replacement x 2 Thumb surgery
[2025-08-09 12:17] VITALS: BP 122/79; PULSE 89; RESP 18; O2SAT 98
--- NOTE | 2025-08-09 12:23 | CT_ITS ---
WS: [id number] CT HEAD NONCONTRAST HISTORY: fall thursday TECHNIQUE: Contiguous axial imaging performed through the brain. Bone and soft tissue windows. Sagittal and coronal reformats reviewed. All CT scans at [facility] use at least one of these dose optimization techniques: automated exposure control; mA and/or kV adjustment per patient size (includes targeted exams where dose is matched to clinical indication); or iterative reconstruction. DLP: 1858.66 mGy.cm COMPARISON: 03/14/2021 No acute intracranial hemorrhage, midline shift or mass effect. Mild cerebral atrophy. Very minimal small vessel changes. No prior infarct. Moderate cerebellar atrophy. Ventricles: Normal size with no hydrocephalus. No inferior displacement of cerebellar tonsils. Paranasal sinuses: As visualized are clear. Mastoid air cells: Well pneumatized. Calvarium and scalp: No skull fracture. Large acute LEFT frontal scalp hematoma measures at least 6.0 x 2.1 cm. Heavy calcifications in the distal vertebral arteries through the foramen magnum and also the intracranial carotid arteries. CT/CT head wo con* [id number] IMPRESSION: 1. No acute intracranial hemorrhage or edema. 2. Large acute LEFT frontal scalp hematoma. 3. No skull fracture. 4. Mild cerebral and cerebellar atrophy.
[2025-08-09] MEDS: metoclopramide 5 mg/mL SDV 2 mL 10 MG IVP (12:45)
[2025-08-09 12:47] LABS: Hematocrit 38.9 % (37-53); Hemoglobin 12.50 g/dL (11.27-16.99); Mean Corpuscular HGB Conc 32.1 g/dL (30-55); Mean Corpuscular Hemoglobin 28.7 pg (27-33); Mean Corpuscular Volume 89.2 fl (82-101); Nucleated Red Blood Cells % 0 %; Platelet Count 142 10^3/cmm (157-399); Red Blood Count 4.36 10^6/uL (3.85-5.65); White Blood Count 7.63 10^3/uL (3.29-11.43)
[2025-08-09] MEDS: acetaminophen 1,000 MG/100 ML PIGGYBACK 400 MG IV (12:49)
[2025-08-09] MEDS: magnesium sulfate premix 1 GM/100 ML PIGGYBACK IV (12:51)
--- NOTE | 2025-08-09 12:57 | CT_ITS ---
WS: [id number] CT FACIAL BONES HISTORY: fall, L facial pain TECHNIQUE: Images obtained from the supraorbital location through the mandible. Soft tissue and bone windows are reviewed. Coronal and sagittal reformats have also been submitted. DLP: 1858.[address] scans at [facility] use at least one of these dose optimization techniques: automated exposure control; mA and/or kV adjustment per patient size (includes targeted exams where dose is matched to clinical indication); or iterative reconstruction. COMPARISON: None available. No acute facial bone fractures identified. Nasal bones and zygomatic arches are intact. No mandibular fracture. No orbit fracture. Maxillary sinus acuna are intact. Advanced degenerative changes and reversal of the normal curvature noted within the upper cervical spine. Marked facet joint arthropathy. No acute fracture in the upper cervical spine. The large acute scalp hematoma centered over the LEFT frontal bone has extended inferiorly infiltrating through the soft tissues of the LEFT face. There is marked blood products infiltrating the subcutaneous soft tissues centered over the LEFT temporal bone, LEFT zygomatic arch and LEFT cheek. Blood extends over the LEFT mandible. CT/CT facial bones wo con* [id number] IMPRESSION: 1. No acute facial bone fracture. 2. Acute scalp hematoma centered over the LEFT frontal bone as extended inferi natasha over the LEFT face to the level of the mandible.
[2025-08-09 13:10] LABS: Anion Gap 15.8 (5-19); Blood Urea Nitrogen 18 mg/dL (8-23); Calcium 8.9 mg/dL (8.5-10.5); Carbon Dioxide 26 mmol/L (22-29); Chloride 99 mmol/L (98-107); Creatinine Clr Calc Pharmacy 79.7933; Glucose 129 mg/dL (65-115); Magnesium 1.8 mg/dL (1.7-2.3); Osmolality Calculated 288 mOsm/kg (285-295); Potassium 3.8 mmol/L (3.5-5.1); Sodium 137 mmol/L (136-145)
--- NOTE | 2025-08-09 13:28 | W.ED.HA ---
HPI - Headache General: Chief Complaint: Headache Stated Complaint: Headache Fell on 08/05 L side head Time Seen by Provider: 08/09/25 12:05 History of Present Illness: 79-year-old male history of Parkinson's, chronic back and shoulder pain, A-fib on Eliquis, presenting with persistent/worsening headache after a fall sustained on Thursday, initially seen in outside ER and had imaging done unclear of head versus facial but was told everything was okay, reports that pain has gotten worse to the head region since this time diffuse, no associated nausea or vomiting, no altered mental status, no fevers, no vision loss Related Data Home Medications ?Medication ?Instructions ?Recorded ?Confirmed allopurinol 300 mg tablet 300 mg PO QAM 12/08/19 02/19/22 hydrochlorothiazide 25 mg tablet 25 mg PO QAM 12/08/19 02/19/22 Held on 03/16/21. Instructions: Resume on 03/23/21. metformin 500 mg tablet 500 mg PO BID 12/08/19 02/19/22 apixaban 5 mg tablet (Eliquis) 5 mg PO BID 02/13/21 02/19/22 Held on 03/16/21. Instructions: Resume on 03/18/21. rosuvastatin 20 mg tablet 20 mg PO BEDTIME 02/26/21 02/19/22 tamsulosin 0.4 mg capsule 0.4 mg PO BEDTIME 02/26/21 02/19/22 acetaminophen 500 mg tablet 1,000 mg PO Q8H PRN Pain 03/14/21 02/19/22 gabapentin 100 mg capsule 100 mg PO BID see pharmacy comments 03/14/21 02/19/22 carbidopa 25 mg-levodopa 100 mg 1 tab PO BID 08/14/21 02/19/22 tablet escitalopram oxalate 10 mg tablet 10 mg PO DAILY 08/14/21 02/19/22 Allergies Allergy/AdvReac Type Severity Reaction Status Date / Time niacin Allergy Unknown Verified 08/09/25 11:50 tetanus toxoid, adsorbed Allergy Unknown Verified 08/09/25 11:50 codeine AdvReac Unknown Verified 08/09/25 11:50 morphine AdvReac Unknown Verified 08/09/25 11:50 [facility]: Medical History BPH (benign prostatic hyperplasia) Gout History of spinal stenosis Chronic neck and back pain History of hematuria Hypertension Hyperlipidemia Diabetes History of back pain Atrial fibrillation Chronic back pain Surgical History History of back surgery History of thumb surgery History of right knee joint replacement Dr. Morales in [place] Dr. Austin Gonzales [phone] Status post left knee replacement Family History Other CAD (coronary artery disease) Diabetes Social History Smoking and tobacco/nicotine status: never used tobacco/nicotine Alcohol intake: never Substance/Drug Use: never Marital status: Physical Exam Narrative: EXAM NARRATIVE: Gen: A&Ox4, no acute distress, nontoxic appearing HEENT: Patient has a very large acute left frontal hematoma with some scabbing of the skin, there is no obvious deformity of the facial bones but there is left-sided periorbital ecchymosis, mild conjunctival injection of the left eye with otherwise normal pupillary response and no proptosis, no restrictions in EOM testing no disconjugate gaze no subjective diplopia with testing of EOMs and grossly normal visual acuity bilaterally Neck: Supple, full range of motion, no observable masses Lungs: No Respiratory distress, Lungs clear to auscultation bilaterally no rales, rhonchi, wheezing CV: Regular rate and rhythm, no murmur, no pitting edema to lower extremities bilaterally Abdomen: Soft, nondistended, nontender to palpation MSK: No joint swelling, FROM all 4 extremities Skin: No rashes, petechiae, lesions. Normal color per patient. Neuro: Alert and oriented, no slurred speech, sensation and strength grossly intact all 4 extremities Psych: Appropriate for situation. Course Reevaluation(s): Reevaluation #1: Patient reevaluated, headache improving but not fully resolved, CT brain and facial bones negative, urinalysis negative, stable for discharge with PCP follow-up, recommend walker with assist at home while balance is unsteady, sparing use of wheelchair to avoid further deconditioning, fall precautions Time: 14:32 Vital Signs: Vital signs: Vital Signs Temperature 97.8 F 08/09/25 11:43 Pulse Rate 85 08/09/25 13:38 Respiratory Rate 16 08/09/25 14:00 Blood Pressure 125/71 08/09/25 14:00 Pulse Oximetry 97 08/09/25 14:00 Oxygen Delivery Me thod Room Air 08/09/25 13:38 MDM - Headache Medical Decision Making 79-year-old male history of A-fib on Eliquis and Parkinson's disease, presenting emergency department with persistent/progressively worsening headache after a fall on Thursday sustaining significant facial and forehead hematoma/bruising, reportedly negative imaging initially, plan for repeat CT to rule out interval development of an intracerebral hemorrhage, treatment of the headache, reassess for disposition. Lab Data Labs showing no anemia or leukocytosis, minimal thrombocytopenia not clinically relevant, minimal hyperglycemia not clinically relevant, normal electrolytes, normal kidney function, 08/09/25 12:40 08/09/25 12:[address] 08/09/25 12:23 IMPRESSION: 1. No acute intracranial hemorrhage or edema. 2. Large acute LEFT frontal scalp hematoma. 3. No skull fracture. 4. Mild cerebral and cerebellar atrophy. Face CT 08/09/25 12:57 IMPRESSION: 1. No acute facial bone fracture. 2. Acute scalp hematoma centered over the LEFT frontal bone as extended inferiorly over the LEFT face to the level of the mandible. Laboratory Results WBC 7.63 10^3/uL (3.29-11.43) 08/09/25 12:40 RBC 4.36 10^6/uL (3.85-5.65) 08/09/25 12:40 Hgb 12.50 g/dL (11.27-16.99) 08/09/25 12:40 Hct 38.9 % (37-53) 08/09/25 12:40 MCV 89.2 fl (82-101) 08/09/25 12:40 MCH 28.7 pg (27-33) 08/09/25 12:40 MCHC 32.1 g/dL (30-55) 08/09/25 12:40 RDW 15.0 % (12.1-15.1) 08/09/25 12:40 Plt Count 142 10^3/cmm (157-399) L 08/09/25 12:40 MPV 10.8 fL (7.4-10.4) H 08/09/25 12:40 Neut % (Auto) 79.5 % 08/09/25 12:40 Lymph % (Auto) 8.8 % 08/09/25 12:40 [place] % (Auto) 10.0 % 08/09/25 12:40 Eos % (Auto) 0.9 % 08/09/25 12:40 Baso % (Auto) 0.5 % 08/09/25 12:40 Neut # (Auto) 6.07 10^3/uL (1.8-7.7) 08/09/25 12:40 Lymph # (Auto) 0.7 10^3/uL (0.8-4.8) L 08/09/25 12:40 [place] # (Auto) 0.8 10^3/uL (0.2-0.9) 08/09/25 12:40 Eos # (Auto) 0.1 10^3/uL (0.0-0.8) 08/09/25 12:40 Baso # (Auto) 0.0 10^3/uL (0.0-0.1) 08/09/25 12:40 Nucleated RBC % (auto) 0 % 08/09/25 12:40 Nucleated RBCs # 0.0 /100WBC 08/09/25 12:40 Sodium 137 mmol/L (136-145) 08/09/25 12:40 Potassium 3.8 mmol/L (3.5-5.1) 08/09/25 12:40 Chloride 99 mmol/L (98-107) 08/09/25 12:40 Carbon Dioxide 26 mmol/L (22-29) 08/09/25 12:40 Anion Gap 15.8 (5-19) 08/09/25 12:40 BUN 18 mg/dL (8-23) 08/09/25 12:40 Creatinine 0.7 mg/dL (0.7-1.2) 08/09/25 12:40 GFR Calculation Not Reportable 08/09/25 12:40 Glucose 129 mg/dL (65-115) H 08/09/25 12:40 Calculated Osmolality 288 mOsm/kg (285-295) 08/09/25 12:40 Calcium 8.9 mg/dL (8.5-10.5) 08/09/25 12:40 Magnesium 1.8 mg/dL (1.7-2.3) 08/09/25 12:40 Urine Color Yellow (Yellow) 08/09/25 12:05 Urine Appearance Clear (CLEAR) 08/09/25 12:05 Urine pH 6.5 (5-7) 08/09/25 12:05 Ur Specific [place] 1.020 (1.005-1.030) 08/09/25 12:05 Urine Protein Negative (Negative) 08/09/25 12:05 Urine Glucose (UA) Negative (Normal) 08/09/25 12:05 Urine Ketones Trace (Negative) 08/09/25 12:05 Urine Blood Negative (Negative) 08/09/25 12:05 Urine Nitrate Negative (Negative) 08/09/25 12:05 Urine Bilirubin Negative (Negative) 08/09/25 12:05 Urine Urobilinogen 1.0 mg/dL (Negative) 08/09/25 12:05 Ur Leukocyte Esterase Negative (Negative) 08/09/25 12:05 Urine RBC 0-2 /hpf (0-2) 08/09/25 12:05 Urine WBC 0-5 /hpf (0-5) 08/09/25 12:05 Ur Squamous Epith Cells 0-5 /hpf (0-5) 08/09/25 12:05 Amorphous Sediment Not Reportable 08/09/25 12:05 Urine Bacteria None seen /hpf (NONE) 08/09/25 12:05 Hyaline Casts 0-4 /lpf H 08/09/25 12:05 All radiology interpretation(s) finalized by discharge ED provider radiology interpretation(s): CT head and facial bones with significant acute hematoma but no intracranial injury no acute fracture Discharge Plan Discharge Patient Disposition: Home Clinical Impression: Postconcussion syndrome Headache Qualifiers: Headache type: post-traumatic Headache chronicity pattern: acute headache Intractability: intractable Qualified Code(s): G44.311 - Acute post-traumatic headache, intractable Condition: Stable Prescriptions: No Action allopurinol 300 mg tablet 300 mg PO QAM hydrochlorothiazide 25 mg tablet 25 mg PO QAM metformin 500 mg tablet 500 mg PO BID carbidopa-levodopa 25-100 mg tablet 1 tab PO BID escitalopram oxalate 10 mg tablet 10 mg PO DAILY Eliquis 5 mg tablet 5 mg PO BID tamsulosin 0.4 mg Capsule 0.4 mg PO BEDTIME rosuvastatin 20 mg Tablet 20 mg PO BEDTIME gabapentin 100 mg Capsule 100 mg PO BID acetaminophen 500 mg tablet 1,000 mg PO Q8H PRN (Reason: Pain) Discharge Orders: Discharge ED (Routine); Ordered 08/09/25 Ordered By: Bill Romero Referrals: Roxanne Serrato APN [Primary Care Provider, Family Practice] Patient Instructions: Patient Portal & [place]iano Instructions, Chronic Post Traumatic Headache (ED), Post Concussion Syndrome (ED), Hematoma (ED) Print Language: Frisian Coding Level of Care Code ED Rotary Filter Operator for Deo Hanson
[2025-08-09 13:38] VITALS: BP 116/62; PULSE 85; O2SAT 97
[2025-08-09 14:00] VITALS: BP 125/71; RESP 16; O2SAT 97
[2025-08-09 14:01] LABS: Glucose Urine UA Negative (Normal); Nitrate Urine Negative (Negative); Specific Gravity, Urine 1.020 (1.005-1.030)
[2025-08-09 14:48] VITALS: BP 138/90; PULSE 85; O2SAT 98
== END 2025-08-09 14:55 | disposition home or self-care (01) ==
PROVIDERS: Emergency Provider Student in an Organized Health Care Education/Training Program; PCP Nurse Practitioner Family
DX: G44.311 Acute post-traumatic headache, intractable (principal); F07.81 Postconcussional syndrome; Z79.84 Long term (current) use of oral hypoglycemic drugs; Z79.01 Long term (current) use of anticoagulants; E11.9 Type 2 diabetes mellitus without complications; E78.5 Hyperlipidemia, unspecified; I10 Essential (primary) hypertension
CPT/HCPCS: 36415; 70450; 70486; 80048; 81001; 83735; 85025; 96365; 96366; 96367; 96375; 99285; J0131; J2765; J3475; J7040